=== PATIENT | female | born 1940 | race Caucasian/White ===

== ENCOUNTER 2020-03-15 08:22 | Outpatient (REF) | payer MEDICARE, SELFPAY ==
[2020-03-15 09:26] LABS: Basophils Percent Auto 0.6 % (0-2); Eosinophils Absolute Auto 0.3 X10*3/uL (0.0-0.4); Eosinophils Percent Auto 4.3 % (0-4); Hematocrit 47.1 % (37-47); Imm Gran Abs Auto 0.09 X10*3/uL (0.00-0.03); Imm Gran Pct Auto 1.3 % (0.0-0.4); Lymphocytes Absolute Auto 1.8 X10*3/uL (1.2-4.9); Lymphocytes Percent Auto 25.5 % (20-40); MANUAL DIFF FLAG SCAN; Mean Corpuscular HGB Conc 31.8 g/dl (31.0-35.0); Mean Corpuscular Hemoglobin 29.5 pg (27.0-33.0); Mean Corpuscular Volume 92.5 fL (80-98); Mean Platelet Volume 9.5 fL (9.4-12.3); Monocytes Absolute Auto 1.8 X10*3/uL (0.1-1.2); Monocytes Percent Auto 25.8 % (2-11); Neutrophils Absolute Auto 2.9 X10*3/uL (2.0-8.3); Neutrophils Percent Auto 42.5 % (45-73); Platelet Count 350 X10*3/uL (160-400); Red Blood Count 5.09 X10*6/uL (4.20-5.50); Red Cell Distribution Width 13.9 % (11.0-16.0); SCAN SMEAR FLAG 1; White Blood Count 6.9 X10*3/uL (4.8-10.8)
[2020-03-15 09:36] LABS: Alanine Aminotransferase 11 U/L (0-31); Albumin Level 3.8 g/dL (3.5-5.0); Alkaline Phosphatase 80 U/L (39-117); Aspartate Amino Transferase 20 U/L (5-31); Bilirubin Total 0.3 mg/dL (0.0-1.0); Blood Urea Nitrogen 14 mg/dL (9-16); Calcium 9.2 mg/dL (8.4-10.2); Estimated Glomerular Filt Rate > 60; Glucose Random 94 mg/dL (60-115)
[2020-03-15 09:48] LABS: Anion Gap 10 (12-20); Carbon Dioxide 29 mmol/L (22-29); Chloride 106 mmol/L (96-108); Sodium 141 mmol/L (135-145)
[2020-03-15 10:32] LABS: SLIDE REVIEW VERIFIED
[2020-03-16 08:06] LABS: CA-125 66 U/mL (<35)
== END 2020-03-15 08:23 | disposition home or self-care (01) ==
LOC: HO.LAB 08:22
PROVIDERS: PCP Internal Medicine Medical Oncology; Visit Provider Internal Medicine Medical Oncology
DX: C56.9 Malignant neoplasm of unspecified ovary (principal)
CPT/HCPCS: 36415; 80053; 85025; 86304

== ENCOUNTER 2020-04-12 07:58 | Outpatient (REF) | payer MEDICARE, SELFPAY ==
[2020-04-12 08:50] LABS: Basophils Absolute Auto 0.1 X10*3/uL (0.0-0.2); Basophils Percent Auto 1.1 % (0-2); Eosinophils Absolute Auto 0.2 X10*3/uL (0.0-0.4); Hematocrit 44.9 % (37-47); Hemoglobin 14.2 g/dl (12.0-16.0); Imm Gran Abs Auto 0.04 X10*3/uL (0.00-0.03); Imm Gran Pct Auto 0.6 % (0.0-0.4); Lymphocytes Absolute Auto 1.8 X10*3/uL (1.2-4.9); MANUAL DIFF FLAG SCAN; Mean Corpuscular HGB Conc 31.6 g/dl (31.0-35.0); Mean Corpuscular Hemoglobin 29.8 pg (27.0-33.0); Mean Corpuscular Volume 94.1 fL (80-98); Mean Platelet Volume 9.5 fL (9.4-12.3); Monocytes Absolute Auto 1.6 X10*3/uL (0.1-1.2); Monocytes Percent Auto 24.2 % (2-11); Neutrophils Absolute Auto 2.8 X10*3/uL (2.0-8.3); Neutrophils Percent Auto 43.1 % (45-73); Platelet Count 341 X10*3/uL (160-400); Red Blood Count 4.77 X10*6/uL (4.20-5.50); Red Cell Distribution Width 14.1 % (11.0-16.0); SCAN SMEAR FLAG 1; White Blood Count 6.6 X10*3/uL (4.8-10.8)
[2020-04-12 09:11] LABS: SLIDE REVIEW VERIFIED
[2020-04-12 09:14] LABS: Alanine Aminotransferase 10 U/L (0-31); Albumin Level 3.8 g/dL (3.5-5.0); Alkaline Phosphatase 69 U/L (39-117); Anion Gap 13 (12-20); Aspartate Amino Transferase 24 U/L (5-31); Bilirubin Total 0.5 mg/dL (0.0-1.0); Blood Urea Nitrogen 20 mg/dL (9-16); Calcium 8.7 mg/dL (8.4-10.2); Carbon Dioxide 25 mmol/L (22-29); Chloride 104 mmol/L (96-108); Estimated Glomerular Filt Rate > 60; Glucose Random 84 mg/dL (60-115); Sodium 138 mmol/L (135-145)
[2020-04-13 22:27] LABS: CA-125 93 U/mL (<35)
== END 2020-04-12 07:59 | disposition home or self-care (01) ==
LOC: HO.LAB 07:58
PROVIDERS: PCP Internal Medicine Medical Oncology; Visit Provider Internal Medicine Medical Oncology
DX: C56.9 Malignant neoplasm of unspecified ovary (principal)
CPT/HCPCS: 36415; 80053; 85025; 86304

== ENCOUNTER 2020-05-14 08:05 | Outpatient (REF) | payer MEDICARE, SELFPAY ==
[2020-05-14 08:47] LABS: MANUAL DIFF FLAG NO
[2020-05-14 08:52] LABS: Basophils Percent Auto 0.5 % (0-2); Eosinophils Absolute Auto 0.3 X10*3/uL (0.0-0.4); Eosinophils Percent Auto 5.1 % (0-4); Hematocrit 46.7 % (37-47); Hemoglobin 14.7 g/dl (12.0-16.0); Imm Gran Abs Auto 0.03 X10*3/uL (0.00-0.03); Imm Gran Pct Auto 0.5 % (0.0-0.4); Lymphocytes Absolute Auto 2.1 X10*3/uL (1.2-4.9); Lymphocytes Percent Auto 32.9 % (20-40); Mean Corpuscular HGB Conc 31.5 g/dl (31.0-35.0); Mean Corpuscular Hemoglobin 29.7 pg (27.0-33.0); Mean Corpuscular Volume 94.3 fL (80-98); Mean Platelet Volume 9.6 fL (9.4-12.3); Monocytes Absolute Auto 0.9 X10*3/uL (0.1-1.2); Monocytes Percent Auto 13.9 % (2-11); Neutrophils Percent Auto 47.1 % (45-73); Platelet Count 324 X10*3/uL (160-400); Red Blood Count 4.95 X10*6/uL (4.20-5.50); Red Cell Distribution Width 13.7 % (11.0-16.0); White Blood Count 6.3 X10*3/uL (4.8-10.8)
--- NOTE | 2020-05-14 14:06 | MM_ITS ---
EXAMINATION: MM DIAGNOSTIC DIGITAL BREAST TOMOSYNTHESIS, BILATERAL CLINICAL INFORMATION: Due for yearly. Anterior right breast calcifications for follow-up. Personal history ovarian cancer. The lifetime risk of breast cancer based on the Tyrer-Cuzick Model is 2%. COMPARISON: Mammography: 11/04/2019, 04/25/2019, 04/15/2019 (BI-RADS 0), 02/26/2018, 02/17/2017 TECHNIQUE: Digital breast tomosynthesis is performed in both the craniocaudal and mediolateral oblique views along with computer-aided detection (CAD). Synthesized 2D images are generated from the tomosynthesis. FINDINGS: There are scattered areas of fibroglandular density (ACR BI-RADS breast composition Category b). Parenchymal pattern is similar to prior exams. There is no developing density or interval mass or architectural abnormality. There is a tunneled port overlying the left axilla on the MLO view. No abnormal calcifications on the left. Right breast calcifications for follow-up anterior periareolar upper outer breast appears slightly coarser and benign appearing. There are a few calcifications also noted mid 12:00 position which are slightly coarser as well. Right breast will be reassessed again to include magnification views at next bilateral annual mammography, due in one year. Preliminary results are provided to the patient at time of visit by the technologist. MM/MM tomosynthesis diagnostic BI IMPRESSION: No significant changes from prior studies. Probable benign calcifications right breast without significant change. ASSESSMENT: BI-RADS 3: Probably Benign RECOMMENDATION: Diagnostic mammography at time of next annual exam, due in 12 months. This patient's information was entered into a reminder system with a target due date for their next mammogram.
[2020-05-15 09:48] LABS: CA-125 70 U/mL (<35)
== END 2020-05-14 08:06 | disposition home or self-care (01) ==
LOC: HO.MAMMO 08:05
PROVIDERS: Visit Provider Internal Medicine Medical Oncology
DX: R92.1 Mammographic calcification found on diagnostic imaging of breast (principal); C56.9 Malignant neoplasm of unspecified ovary
CPT/HCPCS: 36415; 77062; 77066; 85025; 86304

== ENCOUNTER 2020-06-13 07:57 | Outpatient (REF) | payer MEDICARE, SELFPAY ==
[2020-06-13 08:32] LABS: MANUAL DIFF FLAG NO
[2020-06-13 08:37] LABS: Basophils Absolute Auto 0.1 X10*3/uL (0.0-0.2); Basophils Percent Auto 0.8 % (0-2); Eosinophils Absolute Auto 0.4 X10*3/uL (0.0-0.4); Eosinophils Percent Auto 5.9 % (0-4); Hematocrit 46.1 % (37-47); Hemoglobin 14.4 g/dl (12.0-16.0); Imm Gran Abs Auto 0.07 X10*3/uL (0.00-0.03); Lymphocytes Absolute Auto 2.4 X10*3/uL (1.2-4.9); Lymphocytes Percent Auto 33.8 % (20-40); Mean Corpuscular HGB Conc 31.2 g/dl (31.0-35.0); Mean Corpuscular Hemoglobin 29.7 pg (27.0-33.0); Mean Corpuscular Volume 95.1 fL (80-98); Mean Platelet Volume 9.6 fL (9.4-12.3); Monocytes Absolute Auto 1.3 X10*3/uL (0.1-1.2); Monocytes Percent Auto 17.6 % (2-11); Neutrophils Absolute Auto 2.9 X10*3/uL (2.0-8.3); Neutrophils Percent Auto 40.9 % (45-73); Platelet Count 364 X10*3/uL (160-400); Red Blood Count 4.85 X10*6/uL (4.20-5.50); Red Cell Distribution Width 13.8 % (11.0-16.0); White Blood Count 7.1 X10*3/uL (4.8-10.8)
[2020-06-14 12:52] LABS: CA-125 56 U/mL (<35)
== END 2020-06-13 07:58 | disposition home or self-care (01) ==
LOC: HO.LAB 07:57
PROVIDERS: Visit Provider Internal Medicine Medical Oncology
DX: C56.9 Malignant neoplasm of unspecified ovary (principal)
CPT/HCPCS: 36415; 85025; 86304

== ENCOUNTER 2020-06-14 10:51 | Outpatient (REF) | payer MEDICARE, SELFPAY ==
[2020-06-14 13:25] LABS: Alanine Aminotransferase 12 U/L (0-31); Albumin Level 4.3 g/dL (3.5-5.0); Alkaline Phosphatase 76 U/L (39-117); Anion Gap 15 (12-20); Aspartate Amino Transferase 22 U/L (5-31); Bilirubin Total 0.3 mg/dL (0.0-1.0); Blood Urea Nitrogen 19 mg/dL (9-16); Calcium 9.7 mg/dL (8.4-10.2); Carbon Dioxide 27 mmol/L (22-29); Chloride 104 mmol/L (96-108); Estimated Glomerular Filt Rate 51; Glucose Random 99 mg/dL (60-115); Potassium 4.2 mmol/l (3.3-5.1); Sodium 142 mmol/L (135-145); Total Protein 6.6 g/dL (6.5-8.0)
== END 2020-06-14 10:52 | disposition home or self-care (01) ==
LOC: HO.LAB 10:51
PROVIDERS: PCP Internal Medicine Medical Oncology; Visit Provider Internal Medicine Medical Oncology
DX: C56.9 Malignant neoplasm of unspecified ovary (principal)
CPT/HCPCS: 80053

== ENCOUNTER 2020-07-11 07:59 | Outpatient (REF) | payer MEDICARE, SELFPAY ==
[2020-07-11 08:36] LABS: MANUAL DIFF FLAG NO
[2020-07-11 08:41] LABS: Basophils Percent Auto 0.4 % (0-2); Eosinophils Absolute Auto 0.3 X10*3/uL (0.0-0.4); Eosinophils Percent Auto 4.5 % (0-4); Hematocrit 44.8 % (37-47); Hemoglobin 14.2 g/dl (12.0-16.0); Imm Gran Abs Auto 0.03 X10*3/uL (0.00-0.03); Imm Gran Pct Auto 0.4 % (0.0-0.4); Lymphocytes Absolute Auto 2.2 X10*3/uL (1.2-4.9); Lymphocytes Percent Auto 31.5 % (20-40); Mean Corpuscular HGB Conc 31.7 g/dl (31.0-35.0); Mean Corpuscular Hemoglobin 30.2 pg (27.0-33.0); Mean Corpuscular Volume 95.3 fL (80-98); Mean Platelet Volume 9.5 fL (9.4-12.3); Monocytes Absolute Auto 1.1 X10*3/uL (0.1-1.2); Monocytes Percent Auto 15.9 % (2-11); Neutrophils Absolute Auto 3.3 X10*3/uL (2.0-8.3); Neutrophils Percent Auto 47.3 % (45-73); Platelet Count 376 X10*3/uL (160-400); White Blood Count 6.9 X10*3/uL (4.8-10.8)
[2020-07-11 09:13] LABS: Alanine Aminotransferase 10 U/L (0-31); Albumin Level 4.1 g/dL (3.5-5.0); Alkaline Phosphatase 71 U/L (39-117); Anion Gap 13 (12-20); Aspartate Amino Transferase 22 U/L (5-31); Bilirubin Total 0.6 mg/dL (0.0-1.0); Blood Urea Nitrogen 21 mg/dL (9-16); Calcium 9.5 mg/dL (8.4-10.2); Carbon Dioxide 27 mmol/L (22-29); Chloride 104 mmol/L (96-108); Estimated Glomerular Filt Rate 58; Glucose Random 119 mg/dL (60-115); Sodium 140 mmol/L (135-145); Total Protein 6.2 g/dL (6.5-8.0)
[2020-07-12 06:07] LABS: CA-125 35 U/mL (<35)
== END 2020-07-11 08:00 | disposition home or self-care (01) ==
LOC: HO.LAB 07:59
PROVIDERS: PCP Internal Medicine Medical Oncology; Visit Provider Internal Medicine Medical Oncology
DX: C56.9 Malignant neoplasm of unspecified ovary (principal)
CPT/HCPCS: 36415; 80053; 85025; 86304

== ENCOUNTER 2020-08-14 08:05 | Outpatient (REF) | payer MEDICARE, SELFPAY ==
--- NOTE | ~2020-08-14 | XR_ITS ---
EXAMINATION: XR CHEST CLINICAL INFORMATION: Ovarian cancer COMPARISON: Previous chest x-rays most recent February 2019 TECHNIQUE: 2 views of the chest were obtained. FINDINGS: The cardiac silhouette does not appear enlarged. The thoracic aorta is tortuous. Hilar and mediastinal contours are otherwise unremarkable. There is a left jugular port with tip projecting over the SVC. There is mild biapical pleural thickening. The lungs are otherwise clear. There is no pleural effusion or pneumothorax are there are degenerative changes of the spine. XR/XR chest 2V IMPRESSION: No evidence for acute disease in the chest.
[2020-08-14 08:48] LABS: MANUAL DIFF FLAG NO
[2020-08-14 08:50] LABS: Basophils Absolute Auto 0.1 X10*3/uL (0.0-0.2); Basophils Percent Auto 0.8 % (0-2); Eosinophils Absolute Auto 0.4 X10*3/uL (0.0-0.4); Eosinophils Percent Auto 4.7 % (0-4); Hematocrit 44.8 % (37-47); Hemoglobin 14.1 g/dl (12.0-16.0); Imm Gran Abs Auto 0.02 X10*3/uL (0.00-0.03); Imm Gran Pct Auto 0.3 % (0.0-0.4); Lymphocytes Absolute Auto 1.9 X10*3/uL (1.2-4.9); Lymphocytes Percent Auto 25.6 % (20-40); Mean Corpuscular HGB Conc 31.5 g/dl (31.0-35.0); Mean Corpuscular Hemoglobin 29.7 pg (27.0-33.0); Mean Corpuscular Volume 94.5 fL (80-98); Monocytes Absolute Auto 1.2 X10*3/uL (0.1-1.2); Monocytes Percent Auto 16.5 % (2-11); Neutrophils Absolute Auto 3.9 X10*3/uL (2.0-8.3); Neutrophils Percent Auto 52.1 % (45-73); Platelet Count 357 X10*3/uL (160-400); Red Blood Count 4.74 X10*6/uL (4.20-5.50); Red Cell Distribution Width 13.9 % (11.0-16.0); White Blood Count 7.4 X10*3/uL (4.8-10.8)
[2020-08-14 09:17] LABS: Alanine Aminotransferase 10 U/L (0-31); Alkaline Phosphatase 68 U/L (39-117); Anion Gap 12 (12-20); Aspartate Amino Transferase 20 U/L (5-31); Bilirubin Total 0.5 mg/dL (0.0-1.0); Blood Urea Nitrogen 18 mg/dL (9-16); Calcium 8.8 mg/dL (8.4-10.2); Carbon Dioxide 26 mmol/L (22-29); Chloride 106 mmol/L (96-108); Estimated Glomerular Filt Rate 56; Glucose Random 109 mg/dL (60-115); Potassium 3.7 mmol/L (3.3-5.1); Sodium 140 mmol/L (135-145); Total Protein 6.1 g/dL (6.5-8.0)
[2020-08-15 05:26] LABS: CA-125 40 U/mL (<35)
== END 2020-08-14 08:06 | disposition home or self-care (01) ==
LOC: HO.LAB 08:05
PROVIDERS: PCP Internal Medicine Medical Oncology; Visit Provider Internal Medicine Medical Oncology
DX: Z13.89 Encounter for screening for other disorder (principal)
CPT/HCPCS: 36415; 71046; 80053; 85025; 86304

== ENCOUNTER 2020-08-14 08:45 | Outpatient (REF) | payer MEDICARE, SELFPAY | END 2020-08-14 08:46 | disposition home or self-care (01) | LOC: HO.LAB 08:45 | PROVIDERS: Visit Provider Internal Medicine | DX: Z20.822 Contact with and (suspected) exposure to COVID-19 (principal) | CPT/HCPCS: 36415; 71046; 80053; 85025; 86304; C9803; U0003; U0005 ==

== ENCOUNTER 2020-08-16 07:57 | Outpatient (REF) | payer MEDICARE, SELFPAY ==
--- NOTE | ~2020-08-16 | CT_ITS ---
EXAMINATION: CT ABDOMEN AND PELVIS WITH CONTRAST CLINICAL INFORMATION: Ovarian cancer. COMPARISON: CT abdomen and pelvis with contrast 07/04/2019 and 01/21/2020 TECHNIQUE: Multidetector volumetric images were obtained from the superior aspect of the liver through the pubic symphysis following administration 85 mL of Omnipaque 350 intravenous contrast. Sagittal and coronal reformatted images were obtained on the technologist's workstation. Oral contrast: No. This CT examination was performed using dose optimization techniques as appropriate, variously including the following: *Automated exposure control *Adjustment of mA and/or kV according to patient size (this includes techniques or standardized protocols for targeted exams where dose is matched to indication/reason for exam; i.e. extremities or head) *Use of iterative reconstruction technique DLP: 431 mGy-cm FINDINGS: LUNG BASES: The heart size is normal. The lung bases are clear. LIVER, GALLBLADDER, AND BILIARY TREE: The liver is normal in size, shape, and attenuation. There is a complex cystic lesion in the central right hepatic lobe measuring 1.8 x 2.0 cm. Previously, it measured 3.1 x 2.3 cm on 07/04/2019 and 2.3 x 2.1 cm on 01/21/2020. It is smaller. No additional lesions seen. There is no intrahepatic ductal dilatation. The gallbladder is unremarkable with no evidence of radiopaque gallstones, gallbladder wall thickening, or obvious pericholecystic inflammatory changes. PANCREAS: Unremarkable. SPLEEN: There is a bilobed 4.9 cm cyst, similar to previous study. No splenic enlargement. ADRENAL GLANDS: Unremarkable. KIDNEYS AND URETERS: The kidneys are normal in size, shape, and attenuation. No hydronephrosis, hydroureter, or calculi seen. No perinephric stranding. BLADDER: Unremarkable. GASTROINTESTINAL TRACT: Oral contrast opacified small bowel loops are unremarkable. There is scattered stool and diverticula seen in colon without distention. Appendix is not seen with certainty. The stomach is nondistended and appears unremarkable. There is no free fluid. No free air seen. ABDOMINAL WALL: No significant hernia is appreciated. LYMPH NODES: There are low attenuation lesions in the periportal region on upper abdominal retroperitoneum. There is a 2.1 x 1.1 cm retropancreatic/aortocaval lymph node on axial image 20/, stable. Small para-aortic retroperitoneal lymph nodes are also stable. No abnormal mesenteric lymph nodes seen. Small external iliac 1.6 x 1.4 cm lymph node axial image 56/3 appears stable. Small anterior pericardial lymph nodes are visualized as well which are stable. VASCULAR: Mild atherosclerotic calcification of abdominal aorta with anterior thrombus in the lower to mid abdomen is stable. No aneurysmal dilatation seen. PELVIC VISCERA: There is heterogeneous right pelvic mass measuring 4.9 x 3.9 cm. Previously, it measured 5.5 x 4.3 cm. It appears smaller on the present exam. No additional pelvic mass seen. There is no free fluid. There are multiple small phleboliths in the pelvis. The uterus is not visualized likely atrophic or surgically absent. The cervix appears unremarkable. OSSEOUS STRUCTURES: No lytic or sclerotic process seen. CT/CT abdomen pelvis w con IMPRESSION: Stable right pelvic mass with no major change. Retroperitoneal, periportal and pericardiac lymph nodes are stable. Right central hepatic lobe mass appears slightly smaller. Bilobed splenic cysts shows minimal increase
[2020-08-16] MEDS: iohexoL 350 MG/ML 100 ML INFUS..BTL IV (11:01)
[2020-08-16] MEDS: Barium Sulfate Oral (Mocha) 450 ML ORAL.SUSP 900 ML PO (11:02)
== END 2020-08-16 07:58 | disposition home or self-care (01) ==
LOC: HO.CT 07:57
PROVIDERS: PCP Internal Medicine Medical Oncology; Visit Provider Internal Medicine Medical Oncology
DX: C56.9 Malignant neoplasm of unspecified ovary (principal)
CPT/HCPCS: 74177; Q9967

== ENCOUNTER 2020-08-22 12:06 | Outpatient (REF) | payer MEDICARE, SELFPAY ==
[2020-08-22 12:52] LABS: Glucose Urine UA NEG (NEG); Leukocyte Esterase Urine NEG (NEG); Nitrite Urine NEG (NEG); PH 6.5 (5.0-8.0); Specific Gravity - Urine <= 1.005 (1.005-1.025); Urine Blood NEG (NEG); Urine Ketones NEG (NEG); Urine Protein NEG (NEG-TRACE)
[2020-08-22 12:56] LABS: Appearance Urine CLEAR; Color Urine YELLOW
[2020-08-22 13:06] LABS: Squamous Epithelial Cell Urine 2+ /LPF; WBC Urine 0 /HPF (0-4)
== END 2020-08-22 12:07 | disposition home or self-care (01) ==
LOC: HO.LNP 12:06
PROVIDERS: Visit Provider Internal Medicine Medical Oncology
DX: N30.90 Cystitis, unspecified without hematuria (principal)
CPT/HCPCS: 81001

== ENCOUNTER 2020-09-05 09:56 | Outpatient (REF) | payer MEDICARE, SELFPAY | END 2020-09-05 09:57 | disposition home or self-care (01) | LOC: HO.LAB 09:56 | PROVIDERS: Visit Provider Internal Medicine | DX: Z20.822 Contact with and (suspected) exposure to COVID-19 (principal) | CPT/HCPCS: 36415; C9803; U0003; U0005 ==

== ENCOUNTER 2020-09-21 07:59 | Outpatient (REF) | payer MEDICARE, SELFPAY ==
[2020-09-21 08:57] LABS: MANUAL DIFF FLAG NO
[2020-09-21 09:06] LABS: Basophils Absolute Auto 0.1 X10*3/uL (0.0-0.2); Basophils Percent Auto 0.8 % (0-2); Eosinophils Absolute Auto 0.1 X10*3/uL (0.0-0.4); Eosinophils Percent Auto 0.9 % (0-4); Hematocrit 47.5 % (37-47); Hemoglobin 14.9 g/dl (12.0-16.0); Imm Gran Abs Auto 0.04 X10*3/uL (0.00-0.03); Imm Gran Pct Auto 0.6 % (0.0-0.4); Lymphocytes Percent Auto 30.7 % (20-40); Mean Corpuscular HGB Conc 31.4 g/dl (31.0-35.0); Mean Corpuscular Hemoglobin 30.2 pg (27.0-33.0); Mean Corpuscular Volume 96.2 fL (80-98); Mean Platelet Volume 9.6 fL (9.4-12.3); Monocytes Absolute Auto 1.3 X10*3/uL (0.1-1.2); Monocytes Percent Auto 19.4 % (2-11); Neutrophils Absolute Auto 3.1 X10*3/uL (2.0-8.3); Neutrophils Percent Auto 47.6 % (45-73); Platelet Count 368 X10*3/uL (160-400); Red Blood Count 4.94 X10*6/uL (4.20-5.50); Red Cell Distribution Width 13.5 % (11.0-16.0); White Blood Count 6.5 X10*3/uL (4.8-10.8)
[2020-09-22 05:51] LABS: CA-125 36 U/mL (<35)
== END 2020-09-21 08:00 | disposition home or self-care (01) ==
LOC: HO.LAB 07:59
PROVIDERS: PCP Internal Medicine Medical Oncology; Visit Provider Internal Medicine Medical Oncology
DX: C56.9 Malignant neoplasm of unspecified ovary (principal)
CPT/HCPCS: 36415; 85025; 86304

== ENCOUNTER 2020-10-15 07:58 | Outpatient (REF) | payer MEDICARE, SELFPAY ==
[2020-10-15 08:56] LABS: Basophils Absolute Auto 0.1 X10*3/uL (0.0-0.2); Basophils Percent Auto 0.9 % (0-2); Eosinophils Absolute Auto 0.4 X10*3/uL (0.0-0.4); Eosinophils Percent Auto 6.5 % (0-4); Hematocrit 44.8 % (37-47); Hemoglobin 14.1 g/dl (12.0-16.0); Imm Gran Abs Auto 0.05 X10*3/uL (0.00-0.03); Imm Gran Pct Auto 0.9 % (0.0-0.4); Lymphocytes Absolute Auto 1.9 X10*3/uL (1.2-4.9); Lymphocytes Percent Auto 35.9 % (20-40); MANUAL DIFF FLAG SCAN; Mean Corpuscular HGB Conc 31.5 g/dl (31.0-35.0); Mean Corpuscular Hemoglobin 29.9 pg (27.0-33.0); Mean Corpuscular Volume 94.9 fL (80-98); Mean Platelet Volume 9.4 fL (9.4-12.3); Monocytes Absolute Auto 1.3 X10*3/uL (0.1-1.2); Neutrophils Absolute Auto 1.7 X10*3/uL (2.0-8.3); Neutrophils Percent Auto 31.8 % (45-73); Platelet Count 384 X10*3/uL (160-400); Red Blood Count 4.72 X10*6/uL (4.20-5.50); Red Cell Distribution Width 13.2 % (11.0-16.0); SCAN SMEAR FLAG 1; White Blood Count 5.4 X10*3/uL (4.8-10.8)
[2020-10-15 09:20] LABS: SLIDE REVIEW VERIFIED
[2020-10-15 09:59] LABS: Alanine Aminotransferase 11 U/L (0-31); Alkaline Phosphatase 69 U/L (39-117); Anion Gap 12 (12-20); Aspartate Amino Transferase 20 U/L (5-31); Bilirubin Total 0.3 mg/dL (0.0-1.0); Blood Urea Nitrogen 18 mg/dL (9-16); Calcium 9.7 mg/dL (8.4-10.2); Carbon Dioxide 28 mmol/L (22-29); Chloride 105 mmol/L (96-108); Estimated Glomerular Filt Rate > 60; Glucose Random 94 mg/dL (60-115); Sodium 141 mmol/L (135-145)
[2020-10-16 10:52] LABS: CA-125 42 U/mL (<35)
== END 2020-10-15 07:59 | disposition home or self-care (01) ==
LOC: HO.LAB 07:58
PROVIDERS: PCP Internal Medicine Medical Oncology; Visit Provider Internal Medicine Medical Oncology
DX: C56.9 Malignant neoplasm of unspecified ovary (principal)
CPT/HCPCS: 36415; 80053; 85025; 86304

== ENCOUNTER 2020-11-13 09:03 | Outpatient (REF) | payer MEDICARE, SELFPAY ==
[2020-11-13 10:12] LABS: MANUAL DIFF FLAG NO
[2020-11-13 10:17] LABS: Basophils Percent Auto 0.7 % (0-2); Eosinophils Absolute Auto 0.2 X10*3/uL (0.0-0.4); Eosinophils Percent Auto 4.1 % (0-4); Hematocrit 48.5 % (37-47); Hemoglobin 15.2 g/dl (12.0-16.0); Imm Gran Abs Auto 0.05 X10*3/uL (0.00-0.03); Imm Gran Pct Auto 0.9 % (0.0-0.4); Lymphocytes Absolute Auto 1.9 X10*3/uL (1.2-4.9); Lymphocytes Percent Auto 33.2 % (20-40); Mean Corpuscular HGB Conc 31.3 g/dl (31.0-35.0); Mean Corpuscular Volume 95.7 fL (80-98); Mean Platelet Volume 9.4 fL (9.4-12.3); Monocytes Absolute Auto 0.8 X10*3/uL (0.1-1.2); Monocytes Percent Auto 12.9 % (2-11); Neutrophils Absolute Auto 2.8 X10*3/uL (2.0-8.3); Neutrophils Percent Auto 48.2 % (45-73); Platelet Count 432 X10*3/uL (160-400); Red Blood Count 5.07 X10*6/uL (4.20-5.50); Red Cell Distribution Width 13.9 % (11.0-16.0); White Blood Count 5.8 X10*3/uL (4.8-10.8)
[2020-11-13 10:48] LABS: Alanine Aminotransferase 10 U/L (0-31); Albumin Level 4.1 g/dL (3.5-5.0); Alkaline Phosphatase 70 U/L (39-117); Anion Gap 12 (12-20); Aspartate Amino Transferase 20 U/L (5-31); Bilirubin Total 0.3 mg/dL (0.0-1.0); Blood Urea Nitrogen 22 mg/dL (9-16); Calcium 9.7 mg/dL (8.4-10.2); Carbon Dioxide 28 mmol/L (22-29); Chloride 105 mmol/L (96-108); Estimated Glomerular Filt Rate 59; Glucose Random 127 mg/dL (60-115); Potassium 4.1 mmol/L (3.3-5.1); Sodium 141 mmol/L (135-145); Total Protein 6.4 g/dL (6.5-8.0)
[2020-11-14 09:37] LABS: CA-125 50 U/mL (<35)
== END 2020-11-13 09:04 | disposition home or self-care (01) ==
LOC: HO.LAB 09:03
PROVIDERS: PCP Internal Medicine Medical Oncology; Visit Provider Internal Medicine Medical Oncology
DX: C56.9 Malignant neoplasm of unspecified ovary (principal)
CPT/HCPCS: 36415; 80053; 85025; 86304

== ENCOUNTER 2020-12-11 07:56 | Outpatient (REF) | payer MEDICARE, SELFPAY ==
[2020-12-11 08:44] LABS: MANUAL DIFF FLAG NO
[2020-12-11 08:47] LABS: Basophils Absolute Auto 0.1 X10*3/uL (0.0-0.2); Basophils Percent Auto 0.8 % (0-2); Eosinophils Absolute Auto 0.2 X10*3/uL (0.0-0.4); Eosinophils Percent Auto 2.5 % (0-4); Hematocrit 47.5 % (37-47); Imm Gran Abs Auto 0.05 X10*3/uL (0.00-0.03); Imm Gran Pct Auto 0.8 % (0.0-0.4); Lymphocytes Absolute Auto 1.9 X10*3/uL (1.2-4.9); Lymphocytes Percent Auto 31.4 % (20-40); Mean Corpuscular HGB Conc 31.6 g/dl (31.0-35.0); Mean Corpuscular Hemoglobin 30.1 pg (27.0-33.0); Mean Corpuscular Volume 95.4 fL (80-98); Mean Platelet Volume 9.1 fL (9.4-12.3); Monocytes Absolute Auto 0.9 X10*3/uL (0.1-1.2); Monocytes Percent Auto 14.5 % (2-11); Platelet Count 401 X10*3/uL (160-400); Red Blood Count 4.98 X10*6/uL (4.20-5.50); Red Cell Distribution Width 13.9 % (11.0-16.0)
[2020-12-11 09:23] LABS: Alanine Aminotransferase 6 U/L (0-31); Albumin Level 4.1 g/dL (3.5-5.0); Alkaline Phosphatase 74 U/L (39-117); Anion Gap 13 (12-20); Aspartate Amino Transferase 19 U/L (5-31); Bilirubin Total 0.2 mg/dL (0.0-1.0); Blood Urea Nitrogen 13 mg/dL (9-16); Calcium 9.2 mg/dL (8.4-10.2); Carbon Dioxide 26 mmol/L (22-29); Chloride 105 mmol/L (96-108); Estimated Glomerular Filt Rate 58; Glucose Random 149 mg/dL (60-115); Sodium 140 mmol/L (135-145); Total Protein 6.4 g/dL (6.5-8.0)
[2020-12-12 10:01] LABS: CA-125 43 U/mL (<35)
== END 2020-12-11 07:57 | disposition home or self-care (01) ==
LOC: HO.LAB 07:56
PROVIDERS: PCP Internal Medicine Medical Oncology; Visit Provider Internal Medicine Medical Oncology
DX: C56.9 Malignant neoplasm of unspecified ovary (principal)
CPT/HCPCS: 36415; 80053; 85025; 86304

== ENCOUNTER 2021-01-09 07:58 | Outpatient (REF) | payer MEDICARE, SELFPAY ==
[2021-01-09 08:49] LABS: Basophils Percent Auto 0.6 % (0-2); Eosinophils Percent Auto 0.6 % (0-4); Hematocrit 43.7 % (37-47); Hemoglobin 13.8 g/dl (12.0-16.0); Imm Gran Abs Auto 0.03 X10*3/uL (0.00-0.03); Imm Gran Pct Auto 0.4 % (0.0-0.4); Lymphocytes Absolute Auto 1.9 X10*3/uL (1.2-4.9); Lymphocytes Percent Auto 22.3 % (20-40); Mean Corpuscular HGB Conc 31.6 g/dl (31.0-35.0); Monocytes Absolute Auto 1.9 X10*3/uL (0.1-1.2); Neutrophils Absolute Auto 4.6 X10*3/uL (2.0-8.3); Neutrophils Percent Auto 54.1 % (45-73); Platelet Count 492 X10*3/uL (160-400); Red Cell Distribution Width 14.1 % (11.0-16.0); White Blood Count 8.5 X10*3/uL (4.8-10.8)
[2021-01-09 08:50] LABS: Basophils Absolute Auto 0.1 X10*3/uL (0.0-0.2); Eosinophils Absolute Auto 0.1 X10*3/uL (0.0-0.4); MANUAL DIFF FLAG SCAN; SCAN SMEAR FLAG 1
[2021-01-09 09:12] LABS: Alanine Aminotransferase 9 U/L (0-31); Alkaline Phosphatase 59 U/L (39-117); Anion Gap 12 (12-20); Aspartate Amino Transferase 21 U/L (5-31); Bilirubin Total 0.3 mg/dL (0.0-1.0); Blood Urea Nitrogen 13 mg/dL (9-16); Calcium 9.4 mg/dL (8.4-10.2); Carbon Dioxide 26 mmol/L (22-29); Chloride 106 mmol/L (96-108); Estimated Glomerular Filt Rate 59; Glucose Random 115 mg/dL (60-115); Potassium 3.7 mmol/L (3.3-5.1); SLIDE REVIEW VERIFIED; Sodium 140 mmol/L (135-145)
[2021-01-10 21:17] LABS: CA-125 54 U/mL (<35)
== END 2021-01-09 07:59 | disposition home or self-care (01) ==
LOC: HO.LAB 07:58
PROVIDERS: PCP Internal Medicine Medical Oncology; Visit Provider Internal Medicine Medical Oncology
DX: C56.9 Malignant neoplasm of unspecified ovary (principal)
CPT/HCPCS: 36415; 80053; 85025; 86304

== ENCOUNTER 2021-02-15 07:57 | Outpatient (REF) | payer MEDICARE, SELFPAY ==
[2021-02-15 08:17] LABS: MANUAL DIFF FLAG NO
[2021-02-15 08:24] LABS: Basophils Absolute Auto 0.1 X10*3/uL (0.0-0.2); Basophils Percent Auto 0.6 % (0-2); Eosinophils Absolute Auto 0.5 X10*3/uL (0.0-0.4); Eosinophils Percent Auto 5.5 % (0-4); Hematocrit 47.9 % (37-47); Hemoglobin 15.1 g/dl (12.0-16.0); Imm Gran Abs Auto 0.03 X10*3/uL (0.00-0.03); Imm Gran Pct Auto 0.3 % (0.0-0.4); Lymphocytes Absolute Auto 1.8 X10*3/uL (1.2-4.9); Lymphocytes Percent Auto 19.6 % (20-40); Mean Corpuscular HGB Conc 31.5 g/dl (31.0-35.0); Mean Corpuscular Hemoglobin 29.9 pg (27.0-33.0); Mean Corpuscular Volume 94.9 fL (80-98); Mean Platelet Volume 9.5 fL (9.4-12.3); Monocytes Absolute Auto 1.1 X10*3/uL (0.1-1.2); Monocytes Percent Auto 11.9 % (2-11); Neutrophils Absolute Auto 5.7 X10*3/uL (2.0-8.3); Neutrophils Percent Auto 62.1 % (45-73); Platelet Count 318 X10*3/uL (160-400); Red Blood Count 5.05 X10*6/uL (4.20-5.50); Red Cell Distribution Width 13.5 % (11.0-16.0); White Blood Count 9.1 X10*3/uL (4.8-10.8)
[2021-02-15 08:42] LABS: Alanine Aminotransferase 11 U/L (0-31); Alkaline Phosphatase 77 U/L (39-117); Anion Gap 11 (12-20); Aspartate Amino Transferase 19 U/L (5-31); Bilirubin Total 0.4 mg/dL (0.0-1.0); Blood Urea Nitrogen 12 mg/dL (9-16); Calcium 9.5 mg/dL (8.4-10.2); Carbon Dioxide 26 mmol/L (22-29); Chloride 106 mmol/L (96-108); Estimated Glomerular Filt Rate > 60; Glucose Random 121 mg/dL (60-115); Potassium 3.8 mmol/L (3.3-5.1); Sodium 139 mmol/L (135-145); Total Protein 6.5 g/dL (6.5-8.0)
[2021-02-20 20:21] LABS: CA-125 50 U/mL (<35)
== END 2021-02-15 07:58 | disposition home or self-care (01) ==
LOC: HO.LAB 07:57
PROVIDERS: PCP Internal Medicine Medical Oncology; Visit Provider Internal Medicine Medical Oncology
DX: C56.9 Malignant neoplasm of unspecified ovary (principal)
CPT/HCPCS: 36415; 80053; 85025; 86304

== ENCOUNTER 2021-02-20 07:57 | Outpatient (REF) | payer MEDICARE, SELFPAY ==
--- NOTE | ~2021-02-20 | CT_ITS ---
EXAMINATION: CT ABDOMEN AND PELVIS WITH CONTRAST CLINICAL INFORMATION: Ovarian cancer. COMPARISON: None TECHNIQUE: Multidetector volumetric images were obtained from the superior aspect of the liver through the pubic symphysis following administration 85 mL of Omnipaque 350 intravenous contrast. Sagittal and coronal reformatted images were obtained on the technologist's workstation. Oral contrast: No This CT examination was performed using dose optimization techniques as appropriate, variously including the following: *Automated exposure control *Adjustment of mA and/or kV according to patient size (this includes techniques or standardized protocols for targeted exams where dose is matched to indication/reason for exam; i.e. extremities or head) *Use of iterative reconstruction technique DLP: 335 mGy-cm FINDINGS: LUNG BASES: The lung bases are clear. The heart size is normal. LIVER, GALLBLADDER, AND BILIARY TREE: The liver is normal in size, shape, and attenuation. There is a 2.0 x 2.2 cm round hypodense lesion measuring 58 Hounsfield units on axial image 14/3. No additional lesion seen. No intrahepatic ductal dilatation. The gallbladder is unremarkable with no evidence of radiopaque gallstones, gallbladder wall thickening, or obvious pericholecystic inflammatory changes. PANCREAS: Unremarkable. SPLEEN: There is a bilobed low-density lesion measuring 4.8 x 2.3 cm and approximately 26 Hounsfield units likely a complex cyst, less likely hemangioma. Previously it measured 4.9 cm. ADRENAL GLANDS: Unremarkable. KIDNEYS AND URETERS: The kidneys are normal in size, shape and attenuation. No hydronephrosis, hydroureter or calculi seen. BLADDER: The bladder is decompressed and appears unremarkable. GASTROINTESTINAL TRACT: There is scattered stool and gas seen throughout colon without distention. The small bowel loops opacified oral contrast appear unremarkable. ABDOMINAL WALL: No significant hernia is appreciated. LYMPH NODES: There is a right inguinal hypodense lymph node measuring 27 Hounsfield units and approximately 1.6 cm in maximum dimension. There is a 1.4 x 1.3 cm left external iliac lymph node. No additional abnormal-sized retroperitoneal or internal iliac lymph node seen. There is a small felicia hepatis 1 cm lymph node on axial image 13/3 and 2.0 cm low-density lymph node anterior to the aortocaval region, stable. VASCULAR: The abdominal aorta measures 2.0 x 2.3 cm in the mid segment. There is calcification seen throughout the aorta consistent with atherosclerotic changes. PELVIC VISCERA: There is a complex mass in the right adnexa measuring 5.0 x 4.0 x 4.6 cm likely ovarian in origin. There are peripheral calcifications within this lesion. The attenuation value of 60 degrees suggests internal enhancement. The uterus is not visualized likely atrophied or surgically removed. OSSEOUS STRUCTURES: Unremarkable. CT/CT abdomen pelvis w con IMPRESSION: Solid right adnexal mass likely ovarian in origin, suspicious of primary ovarian lesion. Abnormal hypodense external iliac lymph nodes as described above. No retroperitoneal lymph node seen. Abnormal lymph nodes in the periportal region and retroperitoneum, stable compared to previous study. Bilobed splenic lesion is stable as well. Stable right hepatic lesion. Moderate constipation. Bilobed splenic cyst and likely right hepatic cyst close to the felicia hepatis. Differential diagnoses may include hemangioma. It is stable in size.
[2021-02-20] MEDS: iohexoL 350 MG/ML 100 ML INFUS..BTL IV (10:27)
== END 2021-02-20 07:58 | disposition home or self-care (01) ==
LOC: HO.CT 07:57
PROVIDERS: Visit Provider Internal Medicine Medical Oncology
DX: C56.9 Malignant neoplasm of unspecified ovary (principal)
CPT/HCPCS: 74177; Q9967

== ENCOUNTER 2021-03-22 08:09 | Outpatient (REF) | payer MEDICARE, SELFPAY ==
[2021-03-22 08:53] LABS: Basophils Absolute Auto 0.1 X10*3/uL (0.0-0.2); Basophils Percent Auto 0.6 % (0-2); Eosinophils Absolute Auto 0.3 X10*3/uL (0.0-0.4); Eosinophils Percent Auto 3.6 % (0-4); Hematocrit 47.9 % (37-47); Hemoglobin 15.3 g/dl (12.0-16.0); Imm Gran Abs Auto 0.04 X10*3/uL (0.00-0.03); Imm Gran Pct Auto 0.5 % (0.0-0.4); Lymphocytes Percent Auto 23.5 % (20-40); MANUAL DIFF FLAG SCAN; Mean Corpuscular HGB Conc 31.9 g/dl (31.0-35.0); Mean Corpuscular Hemoglobin 29.7 pg (27.0-33.0); Mean Corpuscular Volume 92.8 fL (80-98); Mean Platelet Volume 9.3 fL (9.4-12.3); Monocytes Absolute Auto 1.5 X10*3/uL (0.1-1.2); Monocytes Percent Auto 18.1 % (2-11); Neutrophils Absolute Auto 4.5 X10*3/uL (2.0-8.3); Neutrophils Percent Auto 53.7 % (45-73); Platelet Count 367 X10*3/uL (160-400); Red Blood Count 5.16 X10*6/uL (4.20-5.50); Red Cell Distribution Width 13.3 % (11.0-16.0); SCAN SMEAR FLAG 1; White Blood Count 8.4 X10*3/uL (4.8-10.8)
[2021-03-22 09:10] LABS: Alanine Aminotransferase 9 U/L (0-31); Albumin Level 4.1 g/dL (3.5-5.0); Alkaline Phosphatase 75 U/L (39-117); Anion Gap 13 (12-20); Aspartate Amino Transferase 18 U/L (5-31); Bilirubin Total 0.3 mg/dL (0.0-1.0); Blood Urea Nitrogen 16 mg/dL (9-16); Calcium 9.8 mg/dL (8.4-10.2); Carbon Dioxide 27 mmol/L (22-29); Chloride 104 mmol/L (96-108); Estimated Glomerular Filt Rate 56; Glucose Random 126 mg/dL (60-115); Potassium 3.8 mmol/L (3.3-5.1); Sodium 140 mmol/L (135-145); Total Protein 6.7 g/dL (6.5-8.0)
[2021-03-22 09:15] LABS: SLIDE REVIEW VERIFIED
[2021-03-25 18:27] LABS: CA-125 72 U/mL (<35)
== END 2021-03-22 08:10 | disposition home or self-care (01) ==
LOC: HO.LAB 08:09
PROVIDERS: PCP Internal Medicine Medical Oncology; Visit Provider Internal Medicine Medical Oncology
DX: C56.9 Malignant neoplasm of unspecified ovary (principal)
CPT/HCPCS: 36415; 80053; 85025; 86304

== ENCOUNTER 2021-04-18 08:04 | Outpatient (REF) | payer MEDICARE, SELFPAY ==
[2021-04-18 08:42] LABS: Basophils Absolute Auto 0.1 X10*3/uL (0.0-0.2); Basophils Percent Auto 0.7 % (0-2); Eosinophils Absolute Auto 0.3 X10*3/uL (0.0-0.4); Eosinophils Percent Auto 3.7 % (0-4); Hematocrit 48.2 % (37.0-47.0); Hemoglobin 14.9 g/dl (12.0-16.0); Imm Gran Abs Auto 0.03 X10*3/uL (0.00-0.03); Imm Gran Pct Auto 0.4 % (0.0-0.4); Lymphocytes Absolute Auto 1.8 X10*3/uL (1.2-4.9); Lymphocytes Percent Auto 26.2 % (20-40); MANUAL DIFF FLAG SCAN; Mean Corpuscular HGB Conc 30.9 g/dl (31.0-35.0); Mean Corpuscular Hemoglobin 29.1 pg (27.0-33.0); Mean Corpuscular Volume 94.1 fL (80.0-98.0); Mean Platelet Volume 9.1 fL (9.4-12.3); Monocytes Absolute Auto 1.5 X10*3/uL (0.1-1.2); Monocytes Percent Auto 21.8 % (2-11); Neutrophils Percent Auto 47.2 % (45-73); Platelet Count 423 X10*3/uL (160-400); Red Blood Count 5.12 X10*6/uL (4.20-5.50); Red Cell Distribution Width 13.5 % (11.0-16.0); SCAN SMEAR FLAG 1; White Blood Count 6.8 X10*3/uL (4.8-10.8)
[2021-04-18 09:13] LABS: Alanine Aminotransferase 8 U/L (0-31); Albumin Level 4.2 g/dL (3.5-5.0); Alkaline Phosphatase 72 U/L (39-117); Anion Gap 12 (12-20); Aspartate Amino Transferase 19 U/L (5-31); Bilirubin Total 0.4 mg/dL (0.0-1.0); Blood Urea Nitrogen 14 mg/dL (9-16); Calcium 9.9 mg/dL (8.4-10.2); Carbon Dioxide 29 mmol/L (22-29); Chloride 105 mmol/L (96-108); Estimated Glomerular Filt Rate 59; Glucose Random 109 mg/dL (60-115); Sodium 142 mmol/L (135-145); Total Protein 6.7 g/dL (6.5-8.0)
[2021-04-18 09:47] LABS: SLIDE REVIEW VERIFIED
[2021-04-19 18:01] LABS: CA-125 89 U/mL (<35)
== END 2021-04-18 08:05 | disposition home or self-care (01) ==
LOC: HO.LAB 08:04
PROVIDERS: Visit Provider Internal Medicine Medical Oncology
DX: C56.9 Malignant neoplasm of unspecified ovary (principal)
CPT/HCPCS: 36415; 80053; 85025; 86304

== ENCOUNTER 2021-05-13 08:06 | Outpatient (REF) | payer MEDICARE, SELFPAY ==
[2021-05-13 08:40] LABS: Basophils Absolute Auto 0.1 X10*3/uL (0.0-0.2); Basophils Percent Auto 1.1 % (0-2); Eosinophils Absolute Auto 0.2 X10*3/uL (0.0-0.4); Eosinophils Percent Auto 3.9 % (0-4); Hematocrit 44.4 % (37.0-47.0); Hemoglobin 13.7 g/dl (12.0-16.0); Imm Gran Abs Auto 0.02 X10*3/uL (0.00-0.03); Imm Gran Pct Auto 0.4 % (0.0-0.4); Lymphocytes Absolute Auto 1.7 X10*3/uL (1.2-4.9); Lymphocytes Percent Auto 31.1 % (20-40); MANUAL DIFF FLAG SCAN; Mean Corpuscular HGB Conc 30.9 g/dl (31.0-35.0); Mean Corpuscular Hemoglobin 29.6 pg (27.0-33.0); Mean Corpuscular Volume 95.9 fL (80.0-98.0); Mean Platelet Volume 8.9 fL (9.4-12.3); Monocytes Absolute Auto 1.3 X10*3/uL (0.1-1.2); Monocytes Percent Auto 22.5 % (2-11); Neutrophils Absolute Auto 2.3 x10*3/uL (2.0-8.3); Platelet Count 387 X10*3/uL (160-400); Red Blood Count 4.63 X10*6/uL (4.20-5.50); Red Cell Distribution Width 14.4 % (11.0-16.0); SCAN SMEAR FLAG 1; White Blood Count 5.6 X10*3/uL (4.8-10.8)
[2021-05-13 09:04] LABS: SLIDE REVIEW VERIFIED
[2021-05-13 09:05] LABS: Alanine Aminotransferase 11 U/L (0-31); Albumin Level 3.9 g/dL (3.5-5.0); Alkaline Phosphatase 60 U/L (39-117); Anion Gap 13 (12-20); Aspartate Amino Transferase 18 U/L (5-31); Bilirubin Total 0.3 mg/dL (0.0-1.0); Blood Urea Nitrogen 12 mg/dL (9-16); Calcium 9.4 mg/dL (8.4-10.2); Carbon Dioxide 25 mmol/L (22-29); Chloride 107 mmol/L (96-108); Estimated Glomerular Filt Rate > 60; Glucose Random 118 mg/dL (60-115); Sodium 141 mmol/L (135-145); Total Protein 6.3 g/dL (6.5-8.0)
[2021-05-15 03:10] LABS: CA-125 49 U/mL (<35)
== END 2021-05-13 08:07 | disposition home or self-care (01) ==
LOC: HO.LAB 08:06
PROVIDERS: Visit Provider Internal Medicine Medical Oncology
DX: C56.9 Malignant neoplasm of unspecified ovary (principal)
CPT/HCPCS: 36415; 80053; 85025; 86304

== ENCOUNTER 2021-05-27 11:54 | Outpatient (REF) | payer MEDICARE, SELFPAY ==
--- NOTE | ~2021-05-27 | MM_ITS ---
EXAMINATION: MM DIAGNOSTIC DIGITAL BREAST TOMOSYNTHESIS, BILATERAL CLINICAL INFORMATION: Due for yearly. Also follow-up probable benign calcifications mid 12:00 right breast. Personal history ovarian cancer. The lifetime risk of breast cancer based on the Tyrer-Cuzick Model is 1%. COMPARISON: Mammography: 05/14/2020, 11/04/2019, 04/25/2019, 04/15/2019 (BI-RADS 0) 02/26/2018 TECHNIQUE: Digital breast tomosynthesis is performed in both the craniocaudal and mediolateral oblique views along with computer-aided detection (CAD). Synthesized 2D images are generated from the tomosynthesis. Additional magnification right CC and magnification right ML views are obtained. FINDINGS: There are scattered areas of fibroglandular density (ACR BI-RADS breast composition Category b). There are no significant masses, abnormal calcifications, or other abnormalities. Parenchymal pattern is similar to prior studies. No interval mass or developing density. There are benign round relatively coarse grouped calcifications anterior right breast similar to prior studies. The punctate calcifications mid 12:00 right breast for follow-up are stable and now considered to be benign. There is a port again seen overlying left axilla on MLO view. No significant changes. Results are provided to the patient at time of visit by the technologist. MM/MM tomosynthesis diagnostic BI IMPRESSION: No mammographic evidence of malignancy. ASSESSMENT: BI-RADS 2: Benign RECOMMENDATION: Routine annual mammography screening. This patient's information was entered into a reminder system with a target due date for their next mammogram.
== END 2021-05-27 11:55 | disposition home or self-care (01) ==
LOC: HO.MAMMO 11:54
PROVIDERS: Visit Provider Internal Medicine Medical Oncology
DX: R92.1 Mammographic calcification found on diagnostic imaging of breast (principal); C56.9 Malignant neoplasm of unspecified ovary
CPT/HCPCS: 77062; 77066

== ENCOUNTER 2021-06-13 09:18 | Outpatient (REF) | payer MEDICARE, SELFPAY ==
[2021-06-13 09:54] LABS: Basophils Absolute Auto 0.1 X10*3/uL (0.0-0.2); Basophils Percent Auto 0.8 % (0-2); Eosinophils Absolute Auto 0.1 X10*3/uL (0.0-0.4); Eosinophils Percent Auto 1.5 % (0-4); Hematocrit 40.3 % (37.0-47.0); Hemoglobin 12.7 g/dl (12.0-16.0); Imm Gran Abs Auto 0.05 X10*3/uL (0.00-0.03); Imm Gran Pct Auto 0.8 % (0.0-0.4); Lymphocytes Absolute Auto 1.6 X10*3/uL (1.2-4.9); Lymphocytes Percent Auto 23.8 % (20-40); MANUAL DIFF FLAG SCAN; Mean Corpuscular HGB Conc 31.5 g/dl (31.0-35.0); Mean Corpuscular Hemoglobin 29.4 pg (27.0-33.0); Mean Corpuscular Volume 93.3 fL (80.0-98.0); Monocytes Absolute Auto 1.8 X10*3/uL (0.1-1.2); Monocytes Percent Auto 26.9 % (2-11); Neutrophils Absolute Auto 3.1 x10*3/uL (2.0-8.3); Neutrophils Percent Auto 46.2 % (45-73); Platelet Count 463 X10*3/uL (160-400); Red Blood Count 4.32 X10*6/uL (4.20-5.50); Red Cell Distribution Width 14.5 % (11.0-16.0); SCAN SMEAR FLAG 1; White Blood Count 6.6 X10*3/uL (4.8-10.8)
[2021-06-13 10:16] LABS: Alanine Aminotransferase 14 U/L (0-31); Albumin Level 3.5 g/dL (3.5-5.0); Alkaline Phosphatase 51 U/L (39-117); Anion Gap 9 (12-20); Aspartate Amino Transferase 28 U/L (5-31); Bilirubin Total 0.5 mg/dL (0.0-1.0); Blood Urea Nitrogen 15 mg/dL (9-16); Calcium 8.7 mg/dL (8.4-10.2); Carbon Dioxide 28 mmol/L (22-29); Chloride 105 mmol/L (96-108); Estimated Glomerular Filt Rate > 60; Glucose Random 80 mg/dL (60-115); Potassium 3.4 mmol/L (3.3-5.1); SLIDE REVIEW VERIFIED; Sodium 139 mmol/L (135-145); Total Protein 5.8 g/dL (6.5-8.0)
[2021-06-14 06:41] LABS: CA-125 50 U/mL (<35)
== END 2021-06-13 09:19 | disposition home or self-care (01) ==
LOC: HO.LAB 09:18
PROVIDERS: PCP Internal Medicine Medical Oncology; Visit Provider Internal Medicine Medical Oncology
DX: C56.9 Malignant neoplasm of unspecified ovary (principal)
CPT/HCPCS: 36415; 80053; 85025; 86304

== ENCOUNTER 2021-07-11 08:02 | Outpatient (REF) | payer MEDICARE, SELFPAY ==
[2021-07-11 08:24] LABS: MANUAL DIFF FLAG NO
[2021-07-11 08:44] LABS: Basophils Percent Auto 0.5 % (0-2); Eosinophils Absolute Auto 0.4 X10*3/uL (0.0-0.4); Eosinophils Percent Auto 5.7 % (0-4); Hematocrit 46.1 % (37.0-47.0); Hemoglobin 14.2 g/dl (12.0-16.0); Imm Gran Abs Auto 0.03 X10*3/uL (0.00-0.03); Imm Gran Pct Auto 0.5 % (0.0-0.4); Lymphocytes Absolute Auto 1.9 X10*3/uL (1.2-4.9); Lymphocytes Percent Auto 29.7 % (20-40); Mean Corpuscular HGB Conc 30.8 g/dl (31.0-35.0); Mean Corpuscular Hemoglobin 29.5 pg (27.0-33.0); Mean Corpuscular Volume 95.6 fL (80.0-98.0); Mean Platelet Volume 9.3 fL (9.4-12.3); Monocytes Absolute Auto 1.2 X10*3/uL (0.1-1.2); Monocytes Percent Auto 17.9 % (2-11); Neutrophils Percent Auto 45.7 % (45-73); Platelet Count 308 X10*3/uL (160-400); Red Blood Count 4.82 X10*6/uL (4.20-5.50); Red Cell Distribution Width 14.6 % (11.0-16.0); White Blood Count 6.5 X10*3/uL (4.8-10.8)
[2021-07-11 09:07] LABS: Alanine Aminotransferase 8 U/L (0-31); Albumin Level 3.9 g/dL (3.5-5.0); Alkaline Phosphatase 70 U/L (39-117); Anion Gap 11 (12-20); Aspartate Amino Transferase 18 U/L (5-31); Bilirubin Total 0.3 mg/dL (0.0-1.0); Blood Urea Nitrogen 15 mg/dL (9-16); Calcium 9.6 mg/dL (8.4-10.2); Carbon Dioxide 28 mmol/L (22-29); Chloride 105 mmol/L (96-108); Estimated Glomerular Filt Rate > 60; Glucose Random 123 mg/dL (60-115); Sodium 140 mmol/L (135-145); Total Protein 6.8 g/dL (6.5-8.0)
[2021-07-12 09:01] LABS: CA-125 57 U/mL (<35)
== END 2021-07-11 08:03 | disposition home or self-care (01) ==
LOC: HO.LAB 08:02
PROVIDERS: PCP Internal Medicine Medical Oncology; Visit Provider Internal Medicine Medical Oncology
DX: C56.9 Malignant neoplasm of unspecified ovary (principal)
CPT/HCPCS: 36415; 80053; 85025; 86304

== ENCOUNTER 2021-08-08 07:53 | Outpatient (REF) | payer MEDICARE, SELFPAY ==
[2021-08-08 08:11] LABS: MANUAL DIFF FLAG NO
[2021-08-08 08:26] LABS: Basophils Percent Auto 0.4 % (0-2); Eosinophils Absolute Auto 0.2 X10*3/uL (0.0-0.4); Eosinophils Percent Auto 2.4 % (0-4); Hematocrit 46.7 % (37.0-47.0); Hemoglobin 14.5 g/dl (12.0-16.0); Imm Gran Abs Auto 0.04 X10*3/uL (0.00-0.03); Imm Gran Pct Auto 0.6 % (0.0-0.4); Lymphocytes Absolute Auto 2.2 X10*3/uL (1.2-4.9); Lymphocytes Percent Auto 33.2 % (20-40); Mean Corpuscular Hemoglobin 29.3 pg (27.0-33.0); Mean Corpuscular Volume 94.3 fL (80.0-98.0); Mean Platelet Volume 9.2 fL (9.4-12.3); Monocytes Absolute Auto 1.2 X10*3/uL (0.1-1.2); Monocytes Percent Auto 18.4 % (2-11); Platelet Count 384 X10*3/uL (160-400); Red Blood Count 4.95 X10*6/uL (4.20-5.50); Red Cell Distribution Width 14.9 % (11.0-16.0); White Blood Count 6.7 X10*3/uL (4.8-10.8)
[2021-08-08 08:45] LABS: Alanine Aminotransferase 6 U/L (0-31); Alkaline Phosphatase 76 U/L (39-117); Anion Gap 13 (12-20); Aspartate Amino Transferase 19 U/L (5-31); Bilirubin Total 0.5 mg/dL (0.0-1.0); Blood Urea Nitrogen 13 mg/dL (9-16); Calcium 9.7 mg/dL (8.4-10.2); Carbon Dioxide 27 mmol/L (22-29); Chloride 104 mmol/L (96-108); Estimated Glomerular Filt Rate 56; Glucose Random 103 mg/dL (60-115); Potassium 3.9 mmol/L (3.3-5.1); Sodium 140 mmol/L (135-145)
[2021-08-09 20:17] LABS: CA-125 50 U/mL (<35)
== END 2021-08-08 07:54 | disposition home or self-care (01) ==
LOC: HO.LAB 07:53
PROVIDERS: PCP Internal Medicine Medical Oncology; Visit Provider Internal Medicine Medical Oncology
DX: C56.9 Malignant neoplasm of unspecified ovary (principal)
CPT/HCPCS: 36415; 80053; 85025; 86304

== ENCOUNTER 2021-08-15 10:43 | Outpatient (REF) | payer MEDICARE, SELFPAY ==
--- NOTE | ~2021-08-15 | FL_ITS ---
PROCEDURE: XR FLUOROSCOPY CLINICAL INFORMATION: Port-A-Cath check. COMPARISON: 12/22/2019 TECHNIQUE: Port catheter check. FINDINGS: Informed consent was obtained from the patient prior to the procedure. During this process, the procedure and potential alternatives were explained, along with the intended outcome and benefits. The risks of the procedure, as well as the risk of not doing the procedure, were discussed. The patient was given the opportunity to ask questions regarding the procedure and appeared competent to make medical decisions. A signed consent form which documents this discussion was placed in the medical record. Using sterile technique the port reservoir was accessed with a Jaimes needle. The port could not be aspirated. IV contrast was then instilled which demonstrated opacification of the port and port catheter without evidence of extravasation from the reservoir through the left subclavian vein and innominate vein with tip at the catheter lying in the superior vena cava. The port flushed difficulty but there is noted to be a small amount of flow from the tip of the catheter with a fibrin sheath being present. At the end of the procedure blood could be aspirated. The port was flushed with Hep-Lock solution. FLUOROSCOPY TIME: 1.2 minute. DOSE AREA PRODUCT: 2.290 Gy-cm2 (cordero-centimeter squared). FL/FL fluoroscopy <1hr IMPRESSION: Fibrin sheath end of the port catheter within the superior vena cava.
== END 2021-08-15 10:44 | disposition home or self-care (01) ==
LOC: HO.XRAY 10:43
PROVIDERS: PCP Internal Medicine Medical Oncology; Visit Provider Internal Medicine Medical Oncology
DX: C56.9 Malignant neoplasm of unspecified ovary (principal)
CPT/HCPCS: 76000

== ENCOUNTER 2021-09-04 08:04 | Outpatient (REF) | payer MEDICARE, SELFPAY ==
[2021-09-04 08:31] LABS: MANUAL DIFF FLAG NO
[2021-09-04 08:43] LABS: Basophils Percent Auto 0.5 % (0-2); Eosinophils Absolute Auto 0.4 X10*3/uL (0.0-0.4); Eosinophils Percent Auto 4.9 % (0-4); Hematocrit 47.9 % (37.0-47.0); Hemoglobin 14.7 g/dl (12.0-16.0); Imm Gran Abs Auto 0.03 X10*3/uL (0.00-0.03); Imm Gran Pct Auto 0.4 % (0.0-0.4); Lymphocytes Absolute Auto 1.9 X10*3/uL (1.2-4.9); Lymphocytes Percent Auto 23.5 % (20-40); Mean Corpuscular HGB Conc 30.7 g/dl (31.0-35.0); Mean Corpuscular Hemoglobin 29.2 pg (27.0-33.0); Mean Platelet Volume 9.5 fL (9.4-12.3); Monocytes Absolute Auto 1.2 X10*3/uL (0.1-1.2); Monocytes Percent Auto 14.2 % (2-11); Neutrophils Absolute Auto 4.7 x10*3/uL (2.0-8.3); Neutrophils Percent Auto 56.5 % (45-73); Platelet Count 335 X10*3/uL (160-400); Red Blood Count 5.04 X10*6/uL (4.20-5.50); Red Cell Distribution Width 14.7 % (11.0-16.0); White Blood Count 8.2 X10*3/uL (4.8-10.8)
[2021-09-04 09:24] LABS: Alanine Aminotransferase 11 U/L (0-31); Alkaline Phosphatase 69 U/L (39-117); Anion Gap 12 (12-20); Aspartate Amino Transferase 19 U/L (5-31); Bilirubin Total 0.5 mg/dL (0.0-1.0); Blood Urea Nitrogen 14 mg/dL (9-16); Calcium 9.9 mg/dL (8.4-10.2); Carbon Dioxide 29 mmol/L (22-29); Chloride 103 mmol/L (96-108); Estimated Glomerular Filt Rate 56; Glucose Random 88 mg/dL (60-115); Sodium 140 mmol/L (135-145); Total Protein 6.8 g/dL (6.5-8.0)
[2021-09-06 03:20] LABS: CA 125 New Method 41 U/mL (<35); CA-125 41 U/mL (<35)
== END 2021-09-04 08:05 | disposition home or self-care (01) ==
LOC: HO.LAB 08:04
PROVIDERS: PCP Internal Medicine Medical Oncology; Visit Provider Internal Medicine Medical Oncology
DX: C56.9 Malignant neoplasm of unspecified ovary (principal)
CPT/HCPCS: 36415; 80053; 85025; 86304

== ENCOUNTER 2021-10-01 07:33 | Outpatient (REF) | payer MEDICARE, SELFPAY ==
--- NOTE | ~2021-10-01 | CT_ITS ---
EXAMINATION: CT ABDOMEN AND PELVIS WITH CONTRAST CLINICAL INFORMATION: Ovarian cancer. COMPARISON: Previous CTs of the abdomen and pelvis, most recent 02/20/2021. TECHNIQUE: Multidetector volumetric images were obtained from the superior aspect of the liver through the pubic symphysis following administration 85 mL of Omnipaque 350 intravenous contrast. Sagittal and coronal reformatted images were obtained on the technologist's workstation. Oral contrast: Yes This CT examination was performed using dose optimization techniques as appropriate, variously including the following: *Automated exposure control *Adjustment of mA and/or kV according to patient size (this includes techniques or standardized protocols for targeted exams where dose is matched to indication/reason for exam; i.e. extremities or head) *Use of iterative reconstruction technique DLP: 379 mGy-cm FINDINGS: LUNG BASES: The visualized lung bases are clear. There is a small left posterior diaphragmatic hernia containing fat. There is a small left anterior diaphragmatic or cardiophrenic angle lymph node, largest measuring 7 mm (axial image 9, series 3) that is stable. LIVER, GALLBLADDER, AND BILIARY TREE: There is a 1.7 cm complex cystic lesion in the central liver. This is unchanged in size. This may be slightly higher in attenuation or more solid compared to the previous exam. The liver is otherwise unremarkable. The gallbladder is unremarkable. There is no biliary duct dilatation. PANCREAS: Unremarkable. SPLEEN: There is a 3.5 x 4.5 cm complex cyst with a single thin septation in the spleen that is stable. There is an adjacent smaller, more inferior 7 mm simple cyst that is stable. ADRENAL GLANDS: Unremarkable. KIDNEYS AND URETERS: The kidneys are normal in size, shape, and attenuation. No hydronephrosis, hydroureter, or calculi are seen. No perinephric stranding. There is mild right ureteral dilatation down to the right pelvic mass. This is increased from the previous exam. BLADDER: Unremarkable. GASTROINTESTINAL TRACT: The small and large bowel is unremarkable. The appendix is not seen. ABDOMINAL WALL: No significant hernia is appreciated. LYMPH NODES: There are small periportal lymph nodes that are stable. There is a upper abdominal low-attenuation retroperitoneal lymph node in the aortocaval region that measures 1.4 x 1.9 cm (axial image 24, series 3) that is stable. There are additional smaller retroperitoneal lymph nodes in the abdomen that are stable. There are small bilateral low-attenuation retroperitoneal lymph nodes in the pelvis that are stable. Largest lymph node is a left internal iliac or iliac bifurcation lymph node measuring 1.2 cm in short axis (axial image 53) and a left external iliac lymph node measuring 9 mm in short axis (axial image 61, series 3) and a right external iliac lymph node measuring 1 cm in short axis (axial image 58, series 3). No new or increasing adenopathy is seen. There are small mesenteric lymph nodes that are stable, largest measuring 5 mm, in the right lower quadrant (axial image 42, series 3). No ascites. VASCULAR: There is evidence of atherosclerotic disease. There is mild dilatation of the lower abdominal aorta measuring 2.6 x 2.7 cm. PELVIC VISCERA: There is a 4 x 5 cm right pelvic mass. This does not appear appreciably changed in size. This is slightly heterogeneous in attenuation. This may be slightly higher in attenuation compared to the previous exam. This has small peripheral calcifications that are stable. This has several new small peripheral air collections, largest measuring 5 x 10 mm. The uterus appears to have been removed. No left pelvic mass is seen. OSSEOUS STRUCTURES: Unremarkable. CT/CT abdomen pelvis w con IMPRESSION: Interval increase in density in the right pelvic mass and new small peripheral air collections. This does not appear appreciably changed in size. There is increasing right ureteral dilatation, likely secondary to the mass. No right hydronephrosis. Slight interval increase in density in the cystic lesion in the central liver. Stable cystic lesion in the spleen. Stable retroperitoneal, periportal and small bowel mesentery lymph nodes and anterior diaphragmatic or cardiophrenic angle lymphadenopathy. Fleischner guidelines were followed.
[2021-10-01 07:42] LABS: MANUAL DIFF FLAG NO
[2021-10-01 08:20] LABS: Basophils Absolute Auto 0.1 X10*3/uL (0.0-0.2); Basophils Percent Auto 0.6 % (0-2); Eosinophils Absolute Auto 0.2 X10*3/uL (0.0-0.4); Eosinophils Percent Auto 1.9 % (0-4); Hematocrit 45.4 % (37.0-47.0); Hemoglobin 14.3 g/dl (12.0-16.0); Imm Gran Abs Auto 0.08 X10*3/uL (0.00-0.03); Lymphocytes Absolute Auto 3.1 X10*3/uL (1.2-4.9); Lymphocytes Percent Auto 36.9 % (20-40); Mean Corpuscular HGB Conc 31.5 g/dl (31.0-35.0); Mean Corpuscular Hemoglobin 29.9 pg (27.0-33.0); Mean Platelet Volume 8.9 fL (9.4-12.3); Monocytes Absolute Auto 1.5 X10*3/uL (0.1-1.2); Monocytes Percent Auto 17.4 % (2-11); Neutrophils Absolute Auto 3.5 x10*3/uL (2.0-8.3); Neutrophils Percent Auto 42.2 % (45-73); Platelet Count 553 X10*3/uL (160-400); Red Blood Count 4.78 X10*6/uL (4.20-5.50); Red Cell Distribution Width 14.1 % (11.0-16.0); White Blood Count 8.3 X10*3/uL (4.8-10.8)
[2021-10-01 08:47] LABS: Alanine Aminotransferase 7 U/L (0-31); Albumin Level 3.9 g/dL (3.5-5.0); Alkaline Phosphatase 123 U/L (39-117); Anion Gap 15 (12-20); Aspartate Amino Transferase 18 U/L (5-31); Bilirubin Total 0.3 mg/dL (0.0-1.0); Blood Urea Nitrogen 13 mg/dL (9-16); Calcium 9.7 mg/dL (8.4-10.2); Carbon Dioxide 24 mmol/L (22-29); Chloride 103 mmol/L (96-108); Estimated Glomerular Filt Rate > 60; Glucose Random 91 mg/dL (60-115); Potassium 4.2 mmol/L (3.3-5.1); Sodium 138 mmol/L (135-145); Total Protein 6.7 g/dL (6.5-8.0)
[2021-10-01] MEDS: iohexoL 350 MG/ML 100 ML INFUS..BTL IV (11:09)
[2021-10-01] MEDS: Barium Sulfate Oral (Mocha) 450 ML ORAL.SUSP 900 ML PO (11:10)
[2021-10-02 06:57] LABS: CA 125 New Method 36 U/mL (<35); CA-125 36 U/mL (<35)
== END 2021-10-01 07:34 | disposition home or self-care (01) ==
LOC: HO.CT 07:33
PROVIDERS: PCP Internal Medicine Medical Oncology; Visit Provider Internal Medicine Medical Oncology
DX: C56.9 Malignant neoplasm of unspecified ovary (principal)
CPT/HCPCS: 36415; 74177; 80053; 85025; 86304; Q9967

== ENCOUNTER 2021-10-30 07:57 | Outpatient (REF) | payer MEDICARE, SELFPAY ==
[2021-10-30 08:28] LABS: Basophils Absolute Auto 0.1 X10*3/uL (0.0-0.2); Basophils Percent Auto 0.9 % (0-2); Eosinophils Absolute Auto 0.2 X10*3/uL (0.0-0.4); Eosinophils Percent Auto 2.7 % (0-4); Hematocrit 44.1 % (37.0-47.0); Hemoglobin 13.8 g/dl (12.0-16.0); Imm Gran Abs Auto 0.05 X10*3/uL (0.00-0.03); Imm Gran Pct Auto 0.8 % (0.0-0.4); Lymphocytes Absolute Auto 2.2 X10*3/uL (1.2-4.9); Lymphocytes Percent Auto 32.5 % (20-40); MANUAL DIFF FLAG SCAN; Mean Corpuscular HGB Conc 31.3 g/dl (31.0-35.0); Mean Corpuscular Hemoglobin 29.8 pg (27.0-33.0); Mean Corpuscular Volume 95.2 fL (80.0-98.0); Mean Platelet Volume 9.1 fL (9.4-12.3); Monocytes Absolute Auto 1.4 X10*3/uL (0.1-1.2); Monocytes Percent Auto 20.4 % (2-11); Neutrophils Absolute Auto 2.8 x10*3/uL (2.0-8.3); Neutrophils Percent Auto 42.7 % (45-73); Platelet Count 460 X10*3/uL (160-400); Red Blood Count 4.63 X10*6/uL (4.20-5.50); SCAN SMEAR FLAG 1; White Blood Count 6.6 X10*3/uL (4.8-10.8)
[2021-10-30 08:46] LABS: SLIDE REVIEW VERIFIED
[2021-10-30 08:54] LABS: Alanine Aminotransferase 9 U/L (0-31); Albumin Level 3.9 g/dL (3.5-5.0); Alkaline Phosphatase 97 U/L (39-117); Anion Gap 9 (12-20); Aspartate Amino Transferase 18 U/L (5-31); Bilirubin Total 0.3 mg/dL (0.0-1.0); Blood Urea Nitrogen 11 mg/dL (9-16); Calcium 9.2 mg/dL (8.4-10.2); Carbon Dioxide 29 mmol/L (22-29); Chloride 105 mmol/L (96-108); Estimated Glomerular Filt Rate > 60; Glucose Random 119 mg/dL (60-115); Potassium 3.8 mmol/L (3.3-5.1); Sodium 139 mmol/L (135-145); Total Protein 6.7 g/dL (6.5-8.0)
[2021-10-31 22:45] LABS: CA 125 New Method 39 U/mL (<35); CA-125 39 U/mL (<35)
== END 2021-10-30 07:58 | disposition home or self-care (01) ==
LOC: HO.LAB 07:57
PROVIDERS: PCP Internal Medicine Medical Oncology; Visit Provider Internal Medicine Medical Oncology
DX: C56.9 Malignant neoplasm of unspecified ovary (principal)
CPT/HCPCS: 36415; 80053; 85025; 86304

== ENCOUNTER 2021-11-27 08:29 | Outpatient (REF) | payer MEDICARE, SELFPAY ==
[2021-11-27 08:55] LABS: MANUAL DIFF FLAG NO
[2021-11-27 09:43] LABS: Basophils Percent Auto 0.5 % (0-2); Eosinophils Absolute Auto 0.5 X10*3/uL (0.0-0.4); Eosinophils Percent Auto 5.5 % (0-4); Hematocrit 46.4 % (37.0-47.0); Hemoglobin 14.4 g/dl (12.0-16.0); Imm Gran Abs Auto 0.03 X10*3/uL (0.00-0.03); Imm Gran Pct Auto 0.4 % (0.0-0.4); Lymphocytes Absolute Auto 2.3 X10*3/uL (1.2-4.9); Lymphocytes Percent Auto 26.9 % (20-40); Mean Corpuscular Hemoglobin 29.5 pg (27.0-33.0); Mean Corpuscular Volume 95.1 fL (80.0-98.0); Mean Platelet Volume 9.4 fL (9.4-12.3); Monocytes Absolute Auto 1.2 X10*3/uL (0.1-1.2); Monocytes Percent Auto 13.9 % (2-11); Neutrophils Absolute Auto 4.5 x10*3/uL (2.0-8.3); Neutrophils Percent Auto 52.8 % (45-73); Platelet Count 362 X10*3/uL (160-400); Red Blood Count 4.88 X10*6/uL (4.20-5.50); Red Cell Distribution Width 13.9 % (11.0-16.0); White Blood Count 8.5 X10*3/uL (4.8-10.8)
[2021-11-27 10:15] LABS: Alanine Aminotransferase 8 U/L (0-31); Alkaline Phosphatase 81 U/L (39-117); Anion Gap 11 (12-20); Aspartate Amino Transferase 19 U/L (5-31); Bilirubin Total 0.4 mg/dL (0.0-1.0); Blood Urea Nitrogen 15 mg/dL (9-16); Calcium 9.1 mg/dL (8.4-10.2); Carbon Dioxide 27 mmol/L (22-29); Chloride 106 mmol/L (96-108); Estimated Glomerular Filt Rate > 60; Glucose Random 103 mg/dL (60-115); Sodium 140 mmol/L (135-145); Total Protein 6.6 g/dL (6.5-8.0)
[2021-11-29 18:02] LABS: CA 125 New Method 76 U/mL (<35); CA-125 43 U/mL (<35)
== END 2021-11-27 08:30 | disposition home or self-care (01) ==
LOC: HO.LAB 08:29
PROVIDERS: PCP Internal Medicine Medical Oncology; Visit Provider Internal Medicine Medical Oncology
DX: C56.9 Malignant neoplasm of unspecified ovary (principal)
CPT/HCPCS: 36415; 80053; 85025; 86304

== ENCOUNTER 2021-12-25 12:24 | Outpatient (REF) | payer MEDICARE, SELFPAY ==
[2021-12-25 12:35] LABS: MANUAL DIFF FLAG NO
[2021-12-25 13:09] LABS: Basophils Percent Auto 0.5 % (0-2); Eosinophils Absolute Auto 0.1 X10*3/uL (0.0-0.4); Eosinophils Percent Auto 0.6 % (0-4); Hematocrit 43.1 % (37.0-47.0); Hemoglobin 13.7 g/dl (12.0-16.0); Imm Gran Abs Auto 0.09 X10*3/uL (0.00-0.03); Imm Gran Pct Auto 1.1 % (0.0-0.4); Lymphocytes Absolute Auto 2.3 X10*3/uL (1.2-4.9); Lymphocytes Percent Auto 27.9 % (20-40); Mean Corpuscular HGB Conc 31.8 g/dl (31.0-35.0); Mean Corpuscular Hemoglobin 30.2 pg (27.0-33.0); Mean Corpuscular Volume 94.9 fL (80.0-98.0); Mean Platelet Volume 9.3 fL (9.4-12.3); Monocytes Absolute Auto 1.4 X10*3/uL (0.1-1.2); Monocytes Percent Auto 17.9 % (2-11); Neutrophils Absolute Auto 4.2 x10*3/uL (2.0-8.3); Platelet Count 372 X10*3/uL (160-400); Red Blood Count 4.54 X10*6/uL (4.20-5.50); Red Cell Distribution Width 13.9 % (11.0-16.0); White Blood Count 8.1 X10*3/uL (4.8-10.8)
[2021-12-25 13:34] LABS: Alanine Aminotransferase 6 U/L (0-31); Alkaline Phosphatase 81 U/L (39-117); Anion Gap 11 (12-20); Aspartate Amino Transferase 17 U/L (5-31); Bilirubin Total 0.4 mg/dL (0.0-1.0); Blood Urea Nitrogen 13 mg/dL (9-16); Carbon Dioxide 28 mmol/L (22-29); Chloride 104 mmol/L (96-108); Estimated Glomerular Filt Rate > 60; Glucose Random 90 mg/dL (60-115); Potassium 4.2 mmol/L (3.3-5.1); Sodium 139 mmol/L (135-145); Total Protein 6.5 g/dL (6.5-8.0)
[2021-12-27 08:51] LABS: CA-125 66 U/mL (<35)
== END 2021-12-25 12:25 | disposition home or self-care (01) ==
LOC: HO.LAB 12:24
PROVIDERS: PCP Internal Medicine Medical Oncology; Visit Provider Internal Medicine Medical Oncology
DX: C56.9 Malignant neoplasm of unspecified ovary (principal)
CPT/HCPCS: 36415; 80053; 85025; 86304

== ENCOUNTER 2022-01-16 07:53 | Outpatient (REF) | payer MEDICARE, SELFPAY ==
[2022-01-16 08:09] LABS: MANUAL DIFF FLAG NO
[2022-01-16 08:30] LABS: Basophils Percent Auto 0.6 % (0-2); Eosinophils Absolute Auto 0.4 X10*3/uL (0.0-0.4); Hematocrit 43.4 % (37.0-47.0); Imm Gran Abs Auto 0.02 X10*3/uL (0.00-0.03); Imm Gran Pct Auto 0.4 % (0.0-0.4); Lymphocytes Absolute Auto 1.9 X10*3/uL (1.2-4.9); Lymphocytes Percent Auto 34.4 % (20-40); Mean Corpuscular HGB Conc 32.3 g/dl (31.0-35.0); Mean Corpuscular Hemoglobin 30.4 pg (27.0-33.0); Mean Corpuscular Volume 94.1 fL (80.0-98.0); Monocytes Absolute Auto 0.8 X10*3/uL (0.1-1.2); Monocytes Percent Auto 14.8 % (2-11); Neutrophils Absolute Auto 2.3 x10*3/uL (2.0-8.3); Neutrophils Percent Auto 42.8 % (45-73); Platelet Count 265 X10*3/uL (160-400); Red Blood Count 4.61 X10*6/uL (4.20-5.50); Red Cell Distribution Width 13.8 % (11.0-16.0); White Blood Count 5.4 X10*3/uL (4.8-10.8)
[2022-01-17 08:26] LABS: CA-125 53 U/mL (<35)
== END 2022-01-16 07:54 | disposition home or self-care (01) ==
LOC: HO.LAB 07:53
PROVIDERS: PCP Internal Medicine Medical Oncology; Visit Provider Internal Medicine Medical Oncology
DX: C56.9 Malignant neoplasm of unspecified ovary (principal)
CPT/HCPCS: 36415; 85025; 86304

== ENCOUNTER 2022-02-07 07:55 | Outpatient (REF) | payer MEDICARE, SELFPAY ==
[2022-02-07 08:07] LABS: MANUAL DIFF FLAG NO
[2022-02-07 08:19] LABS: Basophils Absolute Auto 0.1 X10*3/uL (0.0-0.2); Basophils Percent Auto 1.1 % (0-2); Eosinophils Absolute Auto 0.3 X10*3/uL (0.0-0.4); Eosinophils Percent Auto 5.5 % (0-4); Hematocrit 43.1 % (37.0-47.0); Hemoglobin 13.9 g/dl (12.0-16.0); Imm Gran Abs Auto 0.01 X10*3/uL (0.00-0.03); Imm Gran Pct Auto 0.2 % (0.0-0.4); Lymphocytes Absolute Auto 2.1 X10*3/uL (1.2-4.9); Lymphocytes Percent Auto 38.9 % (20-40); Mean Corpuscular HGB Conc 32.3 g/dl (31.0-35.0); Mean Corpuscular Hemoglobin 30.2 pg (27.0-33.0); Mean Corpuscular Volume 93.5 fL (80.0-98.0); Mean Platelet Volume 9.4 fL (9.4-12.3); Monocytes Absolute Auto 0.8 X10*3/uL (0.1-1.2); Monocytes Percent Auto 14.4 % (2-11); Neutrophils Absolute Auto 2.2 x10*3/uL (2.0-8.3); Neutrophils Percent Auto 39.9 % (45-73); Platelet Count 231 X10*3/uL (160-400); Red Blood Count 4.61 X10*6/uL (4.20-5.50); Red Cell Distribution Width 13.7 % (11.0-16.0); White Blood Count 5.4 X10*3/uL (4.8-10.8)
[2022-02-07 08:49] LABS: Alanine Aminotransferase 8 U/L (0-31); Albumin Level 3.9 g/dL (3.5-5.0); Alkaline Phosphatase 77 U/L (39-117); Anion Gap 14 (12-20); Aspartate Amino Transferase 19 U/L (5-31); Bilirubin Total 0.4 mg/dL (0.0-1.0); Blood Urea Nitrogen 13 mg/dL (9-16); Calcium 8.9 mg/dL (8.4-10.2); Carbon Dioxide 25 mmol/L (22-29); Chloride 106 mmol/L (96-108); Estimated Glomerular Filt Rate > 60; Glucose Random 130 mg/dL (60-115); Sodium 141 mmol/L (135-145); Total Protein 6.5 g/dL (6.5-8.0)
[2022-02-11 09:02] LABS: CA-125 62 U/mL (<35)
== END 2022-02-07 07:56 | disposition home or self-care (01) ==
LOC: HO.LAB 07:55
PROVIDERS: PCP Internal Medicine Medical Oncology; Visit Provider Internal Medicine Medical Oncology
DX: C56.9 Malignant neoplasm of unspecified ovary (principal)
CPT/HCPCS: 36415; 80053; 85025; 86304

== ENCOUNTER 2022-03-06 07:51 | Outpatient (REF) | payer MEDICARE, SELFPAY ==
[2022-03-06 08:36] LABS: Basophils Absolute Auto 0.1 X10*3/uL (0.0-0.2); Basophils Percent Auto 0.8 % (0-2); Eosinophils Absolute Auto 0.2 X10*3/uL (0.0-0.4); Eosinophils Percent Auto 2.8 % (0-4); Hematocrit 46.1 % (37.0-47.0); Hemoglobin 14.4 g/dl (12.0-16.0); Imm Gran Abs Auto 0.06 X10*3/uL (0.00-0.03); Imm Gran Pct Auto 0.8 % (0.0-0.4); Lymphocytes Absolute Auto 2.2 X10*3/uL (1.2-4.9); Lymphocytes Percent Auto 28.4 % (20-40); MANUAL DIFF FLAG SCAN; Mean Corpuscular HGB Conc 31.2 g/dl (31.0-35.0); Mean Corpuscular Hemoglobin 29.7 pg (27.0-33.0); Mean Corpuscular Volume 95.1 fL (80.0-98.0); Mean Platelet Volume 9.1 fL (9.4-12.3); Monocytes Absolute Auto 1.6 X10*3/uL (0.1-1.2); Monocytes Percent Auto 20.1 % (2-11); Neutrophils Absolute Auto 3.7 x10*3/uL (2.0-8.3); Neutrophils Percent Auto 47.1 % (45-73); Platelet Count 329 X10*3/uL (160-400); Red Blood Count 4.85 X10*6/uL (4.20-5.50); SCAN SMEAR FLAG 1; White Blood Count 7.8 X10*3/uL (4.8-10.8)
[2022-03-06 08:56] LABS: SLIDE REVIEW VERIFIED
[2022-03-06 09:10] LABS: Alanine Aminotransferase 10 U/L (0-31); Albumin Level 4.1 g/dL (3.5-5.0); Alkaline Phosphatase 70 U/L (39-117); Anion Gap 14 (12-20); Aspartate Amino Transferase 18 U/L (5-31); Bilirubin Total 0.4 mg/dL (0.0-1.0); Blood Urea Nitrogen 11 mg/dL (9-16); Calcium 9.5 mg/dL (8.4-10.2); Carbon Dioxide 28 mmol/L (22-29); Chloride 103 mmol/L (96-108); Estimated Glomerular Filt Rate > 60; Glucose Random 101 mg/dL (60-115); Potassium 3.8 mmol/L (3.3-5.1); Sodium 141 mmol/L (135-145); Total Protein 6.7 g/dL (6.5-8.0)
[2022-03-08 09:07] LABS: CA-125 64 U/mL (<35)
== END 2022-03-06 07:52 | disposition home or self-care (01) ==
LOC: HO.LAB 07:51
PROVIDERS: PCP Internal Medicine Medical Oncology; Visit Provider Internal Medicine Medical Oncology
DX: C56.9 Malignant neoplasm of unspecified ovary (principal)
CPT/HCPCS: 36415; 80053; 85025; 86304

== ENCOUNTER 2022-03-17 07:58 | Outpatient (REF) | payer MEDICARE, SELFPAY ==
[2022-03-17 08:28] LABS: MANUAL DIFF FLAG NO
[2022-03-17 08:36] LABS: Basophils Percent Auto 0.5 % (0-2); Eosinophils Absolute Auto 0.5 X10*3/uL (0.0-0.4); Eosinophils Percent Auto 6.9 % (0-4); Hemoglobin 14.1 g/dl (12.0-16.0); Imm Gran Abs Auto 0.03 X10*3/uL (0.00-0.03); Imm Gran Pct Auto 0.4 % (0.0-0.4); Lymphocytes Absolute Auto 1.6 X10*3/uL (1.2-4.9); Lymphocytes Percent Auto 20.8 % (20-40); Mean Corpuscular HGB Conc 31.3 g/dl (31.0-35.0); Mean Corpuscular Hemoglobin 29.6 pg (27.0-33.0); Mean Corpuscular Volume 94.3 fL (80.0-98.0); Mean Platelet Volume 8.9 fL (9.4-12.3); Monocytes Absolute Auto 0.4 X10*3/uL (0.1-1.2); Monocytes Percent Auto 4.9 % (2-11); Neutrophils Absolute Auto 5.1 x10*3/uL (2.0-8.3); Neutrophils Percent Auto 66.5 % (45-73); Platelet Count 242 X10*3/uL (160-400); Red Blood Count 4.77 X10*6/uL (4.20-5.50); Red Cell Distribution Width 13.1 % (11.0-16.0); White Blood Count 7.7 X10*3/uL (4.8-10.8)
[2022-03-17 09:05] LABS: Alanine Aminotransferase 7 U/L (0-31); Albumin Level 4.2 g/dL (3.5-5.0); Alkaline Phosphatase 68 U/L (39-117); Anion Gap 17 (12-20); Aspartate Amino Transferase 17 U/L (5-31); Bilirubin Total 0.2 mg/dL (0.0-1.0); Blood Urea Nitrogen 13 mg/dL (9-16); Calcium 9.2 mg/dL (8.4-10.2); Carbon Dioxide 24 mmol/L (22-29); Chloride 105 mmol/L (96-108); Estimated Glomerular Filt Rate > 60; Glucose Random 119 mg/dL (60-115); Potassium 3.7 mmol/L (3.3-5.1); Sodium 142 mmol/L (135-145); Total Protein 6.7 g/dL (6.5-8.0)
[2022-03-19 09:02] LABS: CA-125 62 U/mL (<35)
== END 2022-03-17 07:59 | disposition home or self-care (01) ==
LOC: HO.LAB 07:58
PROVIDERS: PCP Internal Medicine Medical Oncology; Visit Provider Internal Medicine Medical Oncology
DX: C56.9 Malignant neoplasm of unspecified ovary (principal)
CPT/HCPCS: 36415; 80053; 85025; 86304

== ENCOUNTER 2022-03-19 07:07 | Outpatient (REF) | payer MEDICARE, SELFPAY ==
--- NOTE | ~2022-03-19 | CT_ITS ---
EXAMINATION: CT ABDOMEN AND PELVIS WITH CONTRAST CLINICAL INFORMATION: History of ovarian cancer. COMPARISON: CT abdomen and pelvis 10/01/2021. TECHNIQUE: Multidetector volumetric images were obtained from the superior aspect of the liver through the pubic symphysis following administration 85 mL of Omnipaque 350 intravenous contrast. Sagittal and coronal reformatted images were obtained on the technologist's workstation. Oral contrast: No This CT examination was performed using dose optimization techniques as appropriate, variously including the following: *Automated exposure control *Adjustment of mA and/or kV according to patient size (this includes techniques or standardized protocols for targeted exams where dose is matched to indication/reason for exam; i.e. extremities or head) *Use of iterative reconstruction technique DLP: 312 mGy-cm. FINDINGS: LUNG BASES: There is minimal bibasilar atelectasis. There are small lymph nodes adjacent right cardiophrenic angle with the largest lymph node measuring 1.1 cm.. LIVER, GALLBLADDER, AND BILIARY TREE: The liver is normal in size, shape, and attenuation. There is a 2 cm complex cystic lesion centrally in the right hepatic lobe close to the felicia hepatis. No additional lesions seen. No intrahepatic ductal dilatation noted. The gallbladder is unremarkable with no evidence of radiopaque gallstones, gallbladder wall thickening, or obvious pericholecystic inflammatory changes. PANCREAS: Unremarkable. SPLEEN: There lobulated cyst along the posterior cortex measuring 4.9 cm in maximum transverse dimension on axial image 12/3. ADRENAL GLANDS: Unremarkable. KIDNEYS AND URETERS: The kidneys are normal in size, shape, and attenuation. No hydronephrosis, or calculi seen. Mild prominence of right ureter is stable. No perinephric stranding. BLADDER: Unremarkable. GASTROINTESTINAL TRACT: There is scattered stool and diverticuli seen throughout the colon without distention.Contrast is visualized throughout the small bowel loops and appears normal. Oral contrast opacified small bowel loops in the ileocecal junction appears normal. The appendix is not visualized. There is no free fluid or inflammatory process. ABDOMINAL WALL: No significant hernia is appreciated. LYMPH NODES: Small shotty lymph nodes. The largest right external iliac lymph node measures 1.3 x 1.0 cm axial image 55/3, minimally improved from 02/20/2021. Small left external iliac lymph nodes are seen as well. Retropatellar low-density lymph node preaortic space measuring 1.6 cm is stable on axial image 19/3. A few small periportal lymph nodes are seen. Small midline mesenteric 7 mm lymph node is noted. It is stable VASCULAR: There is mild atherosclerotic changes of abdominal aorta mid segment measuring 2.3 x 2.4 cm. There is partial thrombus within the segment. PELVIC VISCERA: There is a right adnexal soft tissue mass measuring 4.6 x 4.1 cm, stable and best visualized on axial image 55/3. No new lesions in the pelvis or abnormal lymph nodes. OSSEOUS STRUCTURES: No aggressive lytic or sclerotic process seen. Vacuum disc phenomena at the L4-L5 disc level is noted. No aggressive lytic or sclerotic process seen. CT/CT abdomen pelvis w IV con IMPRESSION: Right pelvic complex mass appears stable. There is peripheral air visualized at this time and may represent a large diverticulum arising from the sigmoid colon. Ovarian or paraovarian mass is considered less likely at this time. Stable complex hepatic and splenic lobulated cyst. Small right cardiophrenic and retroperitoneal lymph nodes and right iliac lymph nodes are stable. Mild atherosclerosis of mid aortic segment is stable. Stable lymph nodes in the right cardiophrenic angle. Fleischner guidelines were followed.
[2022-03-19] MEDS: Barium Sulfate Oral (Mocha) 450 ML ORAL.SUSP 900 ML PO (09:40)
[2022-03-19] MEDS: iohexoL 350 MG/ML 100 ML INFUS..BTL 85 ML IV (09:41)
== END 2022-03-19 07:08 | disposition home or self-care (01) ==
LOC: HO.CT 07:07
PROVIDERS: PCP Internal Medicine Medical Oncology; Visit Provider Internal Medicine Medical Oncology
DX: C56.9 Malignant neoplasm of unspecified ovary (principal)
CPT/HCPCS: 74177; Q9967

== ENCOUNTER → 2022-04-07 11:22 | Outpatient (BNVA) | payer MEDICARE, SELFPAY | PROVIDERS: PCP Internal Medicine Medical Oncology; Visit Provider Psychiatry & Neurology Psychiatry | DX: F41.1 Generalized anxiety disorder (principal); C56.9 Malignant neoplasm of unspecified ovary | CPT/HCPCS: 99212 ==

== ENCOUNTER 2022-05-15 07:54 | Outpatient (REF) | payer MEDICARE, SELFPAY ==
[2022-05-15 08:05] LABS: MANUAL DIFF FLAG NO
[2022-05-15 08:26] LABS: Basophils Percent Auto 0.5 % (0-2); Eosinophils Absolute Auto 0.5 X10*3/uL (0.0-0.4); Eosinophils Percent Auto 6.9 % (0-4); Hematocrit 46.1 % (37.0-47.0); Hemoglobin 14.4 g/dl (12.0-16.0); Imm Gran Abs Auto 0.03 X10*3/uL (0.00-0.03); Imm Gran Pct Auto 0.4 % (0.0-0.4); Lymphocytes Absolute Auto 2.1 X10*3/uL (1.2-4.9); Lymphocytes Percent Auto 26.8 % (20-40); Mean Corpuscular HGB Conc 31.2 g/dl (31.0-35.0); Mean Corpuscular Hemoglobin 29.8 pg (27.0-33.0); Mean Corpuscular Volume 95.4 fL (80.0-98.0); Mean Platelet Volume 9.8 fL (9.4-12.3); Monocytes Absolute Auto 0.9 X10*3/uL (0.1-1.2); Monocytes Percent Auto 11.2 % (2-11); Neutrophils Absolute Auto 4.3 x10*3/uL (2.0-8.3); Neutrophils Percent Auto 54.2 % (45-73); Platelet Count 217 X10*3/uL (160-400); Red Blood Count 4.83 X10*6/uL (4.20-5.50); Red Cell Distribution Width 13.9 % (11.0-16.0); White Blood Count 7.9 X10*3/uL (4.8-10.8)
[2022-05-15 09:00] LABS: Alanine Aminotransferase 7 U/L (0-31); Alkaline Phosphatase 64 U/L (39-117); Anion Gap 10 (12-20); Aspartate Amino Transferase 17 U/L (5-31); Bilirubin Total 0.4 mg/dL (0.0-1.0); Blood Urea Nitrogen 14 mg/dL (9-16); Calcium 9.5 mg/dL (8.4-10.2); Carbon Dioxide 30 mmol/L (22-29); Chloride 103 mmol/L (96-108); Estimated Glomerular Filt Rate > 60; Glucose Random 97 mg/dL (60-115); Potassium 3.8 mmol/L (3.3-5.1); Sodium 139 mmol/L (135-145); Total Protein 6.5 g/dL (6.5-8.0)
[2022-05-17 08:39] LABS: CA-125 64 U/mL (<35)
== END 2022-05-15 07:55 | disposition home or self-care (01) ==
LOC: HO.LAB 07:54
PROVIDERS: PCP Internal Medicine Medical Oncology; Visit Provider Internal Medicine Medical Oncology
DX: C56.9 Malignant neoplasm of unspecified ovary (principal)
CPT/HCPCS: 36415; 80053; 85025; 86304

== ENCOUNTER 2022-06-11 10:55 | Outpatient (REF) | payer MEDICARE, SELFPAY ==
--- NOTE | ~2022-06-11 | MM_ITS ---
EXAMINATION: MM SCREENING DIGITAL BREAST TOMOSYNTHESIS, BILATERAL CLINICAL INFORMATION: Screening. Asymptomatic. The lifetime risk of breast cancer based on the Tyrer-Cuzick Model is 0.7%. COMPARISON: Mammography: May 27, 2021 and studies dating back to February 06, 2015 TECHNIQUE: Digital breast tomosynthesis is performed in both the craniocaudal and mediolateral oblique views along with computer-aided detection (CAD). Synthesized 2D images are generated from the tomosynthesis. FINDINGS: The breasts are heterogeneously dense, which may obscure small masses (ACR BI-RADS breast composition Category c). There are no significant masses, abnormal calcifications, or other abnormalities. Left port catheter seen in place. MM/MM tomosynthesis screening BI IMPRESSION: No significant changes from prior exam. ASSESSMENT: BI-RADS 1: Negative RECOMMENDATION: Routine annual mammography screening. This patient's information was entered into a reminder system with a target due date for their next mammogram.
== END 2022-06-11 10:56 | disposition home or self-care (01) ==
LOC: HO.MAMMO 10:55
PROVIDERS: Visit Provider Internal Medicine Medical Oncology
DX: Z12.31 Encounter for screening mammogram for malignant neoplasm of breast (principal)
CPT/HCPCS: 77063; 77067

== ENCOUNTER 2022-06-26 07:47 | Outpatient (REF) | payer MEDICARE, SELFPAY ==
[2022-06-26 07:59] LABS: MANUAL DIFF FLAG NO
[2022-06-26 08:13] LABS: Basophils Percent Auto 0.3 % (0-2); Eosinophils Absolute Auto 0.6 X10*3/uL (0.0-0.4); Eosinophils Percent Auto 6.9 % (0-4); Hematocrit 47.4 % (37.0-47.0); Hemoglobin 15.1 g/dl (12.0-16.0); Imm Gran Abs Auto 0.03 X10*3/uL (0.00-0.03); Imm Gran Pct Auto 0.3 % (0.0-0.4); Lymphocytes Absolute Auto 2.4 X10*3/uL (1.2-4.9); Lymphocytes Percent Auto 26.1 % (20-40); Mean Corpuscular HGB Conc 31.9 g/dl (31.0-35.0); Mean Corpuscular Hemoglobin 30.1 pg (27.0-33.0); Mean Corpuscular Volume 94.6 fL (80.0-98.0); Mean Platelet Volume 9.5 fL (9.4-12.3); Monocytes Absolute Auto 1.1 X10*3/uL (0.1-1.2); Monocytes Percent Auto 12.2 % (2-11); Neutrophils Absolute Auto 4.9 x10*3/uL (2.0-8.3); Neutrophils Percent Auto 54.2 % (45-73); Platelet Count 207 X10*3/uL (160-400); Red Blood Count 5.01 X10*6/uL (4.20-5.50); Red Cell Distribution Width 13.9 % (11.0-16.0)
[2022-06-26 08:35] LABS: Alanine Aminotransferase 7 U/L (0-31); Alkaline Phosphatase 74 U/L (39-117); Anion Gap 12 (12-20); Aspartate Amino Transferase 17 U/L (5-31); Bilirubin Total 0.4 mg/dL (0.0-1.0); Blood Urea Nitrogen 14 mg/dL (9-16); Carbon Dioxide 26 mmol/L (22-29); Chloride 105 mmol/L (96-108); Estimated Glomerular Filt Rate > 60; Glucose Random 101 mg/dL (60-115); Potassium 3.8 mmol/L (3.3-5.1); Sodium 139 mmol/L (135-145); Total Protein 6.6 g/dL (6.5-8.0)
[2022-07-01 07:43] LABS: CA-125 74 U/mL (<35)
== END 2022-06-26 07:48 | disposition home or self-care (01) ==
LOC: HO.LAB 07:47
PROVIDERS: PCP Internal Medicine Medical Oncology; Visit Provider Internal Medicine Medical Oncology
DX: C56.9 Malignant neoplasm of unspecified ovary (principal)
CPT/HCPCS: 36415; 80053; 85025; 86304

== ENCOUNTER 2022-07-24 07:58 | Outpatient (REF) | payer MEDICARE, SELFPAY ==
[2022-07-24 08:08] LABS: MANUAL DIFF FLAG NO
[2022-07-24 08:36] LABS: Basophils Absolute Auto 0.1 X10*3/uL (0.0-0.2); Basophils Percent Auto 0.7 % (0-2); Eosinophils Absolute Auto 0.3 X10*3/uL (0.0-0.4); Eosinophils Percent Auto 3.7 % (0-4); Hematocrit 48.1 % (37.0-47.0); Hemoglobin 15.1 g/dl (12.0-16.0); Imm Gran Abs Auto 0.04 X10*3/uL (0.00-0.03); Imm Gran Pct Auto 0.6 % (0.0-0.4); Lymphocytes Absolute Auto 2.3 X10*3/uL (1.2-4.9); Lymphocytes Percent Auto 31.5 % (20-40); Mean Corpuscular HGB Conc 31.4 g/dl (31.0-35.0); Mean Corpuscular Hemoglobin 29.7 pg (27.0-33.0); Mean Corpuscular Volume 94.5 fL (80.0-98.0); Mean Platelet Volume 9.4 fL (9.4-12.3); Monocytes Absolute Auto 1.3 X10*3/uL (0.1-1.2); Monocytes Percent Auto 17.7 % (2-11); Neutrophils Absolute Auto 3.3 x10*3/uL (2.0-8.3); Neutrophils Percent Auto 45.8 % (45-73); Platelet Count 313 X10*3/uL (160-400); Red Blood Count 5.09 X10*6/uL (4.20-5.50); Red Cell Distribution Width 13.8 % (11.0-16.0); White Blood Count 7.2 X10*3/uL (4.8-10.8)
[2022-07-24 09:24] LABS: Alanine Aminotransferase 7 U/L (0-31); Albumin Level 4.1 g/dL (3.5-5.0); Alkaline Phosphatase 66 U/L (39-117); Anion Gap 14 (12-20); Aspartate Amino Transferase 19 U/L (5-31); Bilirubin Total 0.4 mg/dL (0.0-1.0); Blood Urea Nitrogen 14 mg/dL (9-16); Calcium 9.4 mg/dL (8.4-10.2); Carbon Dioxide 27 mmol/L (22-29); Chloride 105 mmol/L (96-108); Estimated Glomerular Filt Rate > 60; Glucose Random 108 mg/dL (60-115); Potassium 4.4 mmol/L (3.3-5.1); Sodium 142 mmol/L (135-145); Total Protein 6.5 g/dL (6.5-8.0)
[2022-07-26 08:57] LABS: CA-125 76 U/mL (<35)
== END 2022-07-24 07:59 | disposition home or self-care (01) ==
LOC: HO.LAB 07:58
PROVIDERS: PCP Internal Medicine Medical Oncology; Visit Provider Internal Medicine Medical Oncology
DX: C56.9 Malignant neoplasm of unspecified ovary (principal)
CPT/HCPCS: 36415; 80053; 85025; 86304

== ENCOUNTER 2022-07-30 11:41 | Outpatient (REF) | payer MEDICARE, SELFPAY ==
--- NOTE | ~2022-07-30 | CT_ITS ---
EXAMINATION: CT ABDOMEN AND PELVIS WITH CONTRAST CLINICAL INFORMATION: Malignant neoplasm of ovary COMPARISON: Multiple prior CT scans of the abdomen and pelvis the most recent of which was 03/18/2022 TECHNIQUE: Multidetector volumetric images were obtained from the superior aspect of the liver through the pubic symphysis following administration 85 mL of Omnipaque 350 intravenous contrast. Sagittal and coronal reformatted images were obtained on the technologist's workstation. Oral contrast: No This CT examination was performed using dose optimization techniques as appropriate, variously including the following: *Automated exposure control *Adjustment of mA and/or kV according to patient size (this includes techniques or standardized protocols for targeted exams where dose is matched to indication/reason for exam; i.e. extremities or head) *Use of iterative reconstruction technique DLP: 308 mGy-cm FINDINGS: LUNG BASES: The visualized lung bases are unremarkable. LIVER, GALLBLADDER, AND BILIARY TREE: The liver is normal in size, shape, and attenuation. No focal hepatic lesion or biliary ductal dilatation is present. The gallbladder is collapsed but otherwise unremarkable with no evidence of radiopaque gallstones, gallbladder wall thickening, or obvious pericholecystic inflammatory changes. PANCREAS: Unremarkable. SPLEEN: Unremarkable. Benign splenic cysts are present. ADRENAL GLANDS: Unremarkable. KIDNEYS AND URETERS: The kidneys are normal in size, shape, and attenuation. No hydronephrosis, hydroureter, or calculi seen. No perinephric stranding. BLADDER: Unremarkable. GASTROINTESTINAL TRACT: The small and large bowel are unremarkable. The appendix is unremarkable. ABDOMINAL WALL: No significant hernia is appreciated. LYMPH NODES: No retroperitoneal lymphadenopathy is seen. VASCULAR: Mild dilatation of the infrarenal aorta at 2.6 cm with calcific and noncalcific plaque. Atherosclerotic changes present in the common iliac arteries and to a lesser extent external iliac and common femoral. No aneurysms are seen. PELVIC VISCERA: Once again seen is a right adnexal soft tissue mass measuring 4.2 mL peripheral calcifications are seen. Some peripheral air is present in this mass as well of questionable significance. Uterus is not present. This could be communicating with the vaginal fornix which does contain air. OSSEOUS STRUCTURES: Unremarkable. CT/CT abdomen pelvis w IV con IMPRESSION: 1. No evidence of recurrent or metastatic disease in the abdomen or pelvis. 2. Right adnexal soft tissue mass with peripheral calcifications and some peripheral air of questionable significance. 3. Incidental note made of splenic cysts, mild dilatation of the infrarenal aorta and iliac vessels with atherosclerotic changes. Repeat imaging of the aorta is recommended in 5 years time. Fleischner guidelines were followed.
[2022-07-30] MEDS: iohexoL 350 MG/ML 100 ML INFUS..BTL IV (14:23)
[2022-07-30] MEDS: Barium Sulfate Oral (Vanilla) 450 ML ORAL.SUSP 900 ML PO (14:23)
== END 2022-07-30 11:42 | disposition home or self-care (01) ==
LOC: HO.CT 11:41
PROVIDERS: PCP Internal Medicine Medical Oncology; Visit Provider Internal Medicine Medical Oncology
DX: C56.9 Malignant neoplasm of unspecified ovary (principal)
CPT/HCPCS: 74177; Q9967

== ENCOUNTER 2022-08-26 09:40 | Outpatient (REF) | payer MEDICARE, SELFPAY ==
--- NOTE | ~2022-08-26 | PE_ITS ---
EXAMINATION: Fluorine-18 FDG PET/CT Scan CLINICAL INDICATION: Subsequent treatment management. Restaging of bilateral ovarian cancer. PROCEDURE: 74 minutes following the intravenous administration of 17.3 mCi of fluorine 18 FDG, images from the base of the skull to the mid thighs were obtained using a combined PET/CT scanner with CT scan based attenuation correction. No intravenous contrast was administered. Transverse, coronal, sagittal, and volume reconstruction projections were obtained. The patient's blood glucose as determined by a finger stick, was 105 mg/dl immediately prior to injection. The radiotracer was injected intravenously through left antecubital superficial vein, without any complications. Total CT exam dose-length product 278.81 mGy-cm * These CT images were obtained using dose optimization techniques as appropriate, variously including the following: Automated exposure control * Adjustment of mA and/or kV according to patient size (this includes techniques or standardized protocols for targeted exams where dose is matched to indication/reason for exam; i.e. extremities or head) * Use of iterative reconstruction technique COMPARISON: Most recent prior PET CT study study done on 09/11/2016. FINDINGS: NECK AND VISUALIZED HEAD: No FDG avid focal disease. No significant change. THORAX: No FDG avid focal disease, unchanged. Interval placement of a left subclavian Port-A-Cath present with its tip seen at the proximal SVC. There is a persistent stable sub-5 mm subpleural non-FDG avid lung nodule present within the right middle lobe anterolaterally (101/267), too small for accurate characterization. Note is made of a 0.6 cm noncalcified new non-FDG avid lung nodule within the right middle lobe anteriorly (87/267). Previously described other weak FDG avid subcentimeter lung nodules are not reproduced in the current study. No FDG avid mediastinal and/or hilar or internal mammary or axillary lymphadenopathy or pleural or pericardial effusion. ABDOMEN AND PELVIS: There is a 4.1 x 3.9 maximum dimension hypodense circumscribed right adnexal mass associated with calcification shows intense FDG avidity (SUV max of 8.9-486/698). Previously measured 4.4 x 3.3 cm with SUV max of 4.4 on the study dated 09/11/2016. No evidence of additional sites of disease within the pelvis or peritoneal/omental surface or abdominal cavity, unchanged. Previously documented FDG avid disease at segment 1 is no longer reproduced. Previously documented non-FDG avid ill-defined large hypodense lesion seen within the paracaval/central part of the right lobe of the liver measuring approximately 5.0 x 5.2 cm is no longer reproduced. Previously documented subcapsular lobulated non-FDG avid hypodense lesion involving the spleen currently measures approximately 5.1 x 2.5 cm and is unchanged (108/267). Moderately intense FDG avidity is noted in the region of the rectum, anal canal with SUV max of 5.5, previously 3.5, may represent physiologic changes however, direct visualization/clinical correlation as appropriate may be considered for further clarification. MUSCULOSKELETAL: Interval development of linear bandlike FDG avidity is noted at the level of S3 vertebral body and its appendages, seen bilaterally with SUV max of 3.4 (177/267), may represent insufficiency fracture or posttraumatic changes. Targeted MRI of the sacrum with and without contrast may be considered for further clarification, as clinically appropriate. VASCULAR: Calcific atherosclerotic coronary arterial disease is present. Abdominal aortic calcific atherosclerotic disease is also noted associated with mild ectasia without evidence of aneurysm. SUV max OF MEDIASTINAL BLOOD POOL: 2.7 SUV max OF LIVER: 3.0 PET/PET CT fusion skull to thigh IMPRESSION: 1. The index right adnexal hypodense circumscribed FDG avid mass appear relatively stable in size, currently measures 4.1 x 3.9 cm, previously 4.4 x 3.3 cm (on the study dated 09/11/2016) however, shows significant interval increase in FDG avidity with SUV max of 8.9, previously 4.4. This may indicate changes in tumor biology. 2. No additional FDG avid sites of disease within the pelvis and abdomen. Previously documented focal FDG avid liver lesion and adjacent non-FDG avid hypodense lesion within the central part of the right lobe of the liver show interval resolution since the prior study dated 09/11/2016. 3. Solitary 0.6 cm non-FDG avid new lung nodule at the right middle lobe. 4. Moderately intense FDG avidity in the region of the rectum/anal canal with SUV max of 5.5, previously 3.5, may represent physiologic changes however direct visualization/clinical correlation as appropriate may be considered for further clarification. 5. Linear bilaterally symmetric mild FDG avidity at the sacrum at the level of S3, may represent insufficiency fracture or posttraumatic changes, new since prior study. Targeted MRI of the sacrum with and without intravenous contrast may be considered for further clarification, as clinically appropriate.
== END 2022-08-26 09:41 | disposition home or self-care (01) ==
LOC: HO.PET 09:40
PROVIDERS: PCP Internal Medicine Medical Oncology; Visit Provider Internal Medicine Medical Oncology
DX: Z13.89 Encounter for screening for other disorder (principal)

== ENCOUNTER 2022-09-04 08:55 | Observation (INO) | payer MEDICARE, SELFPAY ==
--- NOTE | ~2022-09-04 | CT_ITS ---
EXAMINATION: CT ABDOMEN AND PELVIS WITHOUT AND WITH IV CONTRAST CLINICAL INFORMATION: Rectal bleeding. History of ovarian carcinoma. COMPARISON: CT abdomen/pelvis from 07/30/2022. TECHNIQUE: A volumetric helical CT acquisition of the abdomen and pelvis was obtained without and with intravenous contrast administration. Axial images are presented at 0.6 mm and 5 mm slice thickness. Coronal and sagittal reformatted images were generated at the technologist workstation. Intravenous contrast: 80 mL of Omnipaque 350. This CT examination was performed using dose optimization techniques as appropriate, variously including the following: *Automated exposure control *Adjustment of mA and/or kV according to patient size (this includes techniques or standardized protocols for targeted exams where dose is matched to indication/reason for exam; i.e. extremities or head) *Use of iterative reconstruction technique DLP: 1007 mGy-cm. FINDINGS: LUNG BASES: No acute findings in the visualized lung bases. No basilar consolidation or pleural effusion. Chronic minimal subpleural reticulation is noted at the lateral bases. LIVER, GALLBLADDER, AND BILIARY TREE: 1.8 x 1.5 cm heterogeneously hypodense lesion in the right lobe of liver at central aspect of segment 8 is a chronic abnormality. This lesion measured 5.2 x 4.6 cm on 07/15/2017, 2.3 x 2.1 cm on 01/18/2020 and 2.1 x 1.8 cm on 03/19/2022. It is unchanged compared to 07/30/2022. The chronic focal wall thickening of the gallbladder fundus is consistent with adenomyomatosis. Otherwise, gallbladder is unremarkable. No dilated bile ducts.. PANCREAS: Normal. No evidence of pancreatic mass, edema or ductal dilatation. SPLEEN: Normal size. The two cystic foci within the spleen have a stable appearance compared to recent prior exams, including 01/18/2020. ADRENAL GLANDS: Normal. KIDNEYS AND URETERS: The kidneys have normal size, shape, and attenuation. No hydronephrosis, urolithiasis or perinephric edema. There is normal excretion of contrast into the renal collecting systems on the delayed postcontrast images. BLADDER: Unremarkable. BOWEL AND PERITONEUM: Stomach is underdistended. No dilated bowel loops. No focal bowel wall thickening, mesenteric fat stranding or free fluid. Diverticula of the colon without evidence of diverticulitis. On the arterial and venous phase postcontrast images, there is no evidence of contrast extravasation into the lumen of the bowel or into the rectum. No evidence of a rectal mass or perirectal fluid collection. ABDOMINAL WALL: Unremarkable. LYMPH NODES: No retroperitoneal lymphadenopathy. There is assisted stability of a small lymph node of 0.8 cm short axis dimension along the gastrohepatic ligament. A stable lymph node in the portacaval region is 1 cm in short axis dimension. There are no enlarging lymph nodes. The chronically, mildly enlarged right and left external iliac lymph nodes of 1.1 cm short axis dimension are unchanged in size. VASCULATURE: Moderate atherosclerotic disease of the abdominal aorta and iliac arteries. The infrarenal abdominal aorta measures up to 2.6 cm maximum AP diameter. Inferior vena cava is normal. PELVIC VISCERA: Status post hysterectomy. 3.9 x 4.5 cm mass in the right adnexal region is unchanged in size compared to 10/27/2022. The mass previously measured 4.3 x 5 cm on 01/18/2020. The lesion is in contact with the right vaginal fornix. The persistent presence of gas within the periphery of the lesion could represent necrotic change and/or communication of the mass with the vaginal fornix. The lesion produces mild mass effect upon the adjacent proximal rectum but there is no visible erosion into the rectal wall. No pelvic free fluid. MUSCULOSKELETAL: No suspicious bone lesions. There is vacuum disc degenerative change at the lower lumbar spine. CT/CT gi bleed abd pel wo/w IVcon IMPRESSION: * No evidence of an active gastrointestinal bleed. * Colonic diverticulosis without evidence of acute diverticulitis. * A heterogeneously hypodense focus in the liver could represent an old treated metastasis. This lesion is smaller compared to 01/18/2020 (and is significantly smaller compared to 07/15/2017). No new liver lesion. * There are old stable cystic foci of the posterior spleen. No new splenic lesion. * There is recent stability of the complex mass in the right adnexal region which probably communicates with the vaginal fornix. No new pelvic abnormalities.
[2022-09-04 09:00] VITALS: BP 165/130; PULSE 108; RESP 18; TEMP 36.6; O2SAT 96; BMI 25.9
[2022-09-04 09:34] LABS: MANUAL DIFF FLAG NO
[2022-09-04 09:36] LABS: Basophils Percent Auto 0.3 % (0-2); Eosinophils Absolute Auto 0.1 X10*3/uL (0.0-0.4); Eosinophils Percent Auto 1.2 % (0-4); Hematocrit 44.6 % (37.0-47.0); Hemoglobin 14.4 g/dl (12.0-16.0); Imm Gran Abs Auto 0.04 X10*3/uL (0.00-0.03); Imm Gran Pct Auto 0.4 % (0.0-0.4); Lymphocytes Absolute Auto 1.5 X10*3/uL (1.2-4.9); Lymphocytes Percent Auto 13.9 % (20-40); Mean Corpuscular HGB Conc 32.3 g/dl (31.0-35.0); Mean Corpuscular Hemoglobin 29.9 pg (27.0-33.0); Mean Corpuscular Volume 92.7 fL (80.0-98.0); Monocytes Absolute Auto 1.2 X10*3/uL (0.1-1.2); Monocytes Percent Auto 11.2 % (2-11); Platelet Count 222 X10*3/uL (160-400); Red Blood Count 4.81 X10*6/uL (4.20-5.50); Red Cell Distribution Width 13.1 % (11.0-16.0); White Blood Count 10.9 X10*3/uL (4.8-10.8)
[2022-09-04 10:03] LABS: OBS Int Ctl Valid YES; OBS1 POSITIVE (NEGATIVE)
[2022-09-04 10:06] LABS: Alanine Aminotransferase 8 U/L (0-31); Albumin Level 3.9 g/dL (3.5-5.0); Alkaline Phosphatase 59 U/L (39-117); Anion Gap 13 (12-20); Aspartate Amino Transferase 19 U/L (5-31); Bilirubin Total 0.5 mg/dL (0.0-1.0); Blood Urea Nitrogen 17 mg/dL (9-16); Calcium 9.1 mg/dL (8.4-10.2); Carbon Dioxide 25 mmol/L (22-29); Chloride 108 mmol/L (96-108); Creatinine Clr Calc Pharmacy 37.1; Estimated Glomerular Filt Rate 58; Glucose Random 94 mg/dL (60-115); Sodium 142 mmol/L (135-145); Total Protein 6.3 g/dL (6.5-8.0)
[2022-09-04 10:10] LABS: INTERNATIONAL NORM RATIO 0.9 (0.9-1.1)
--- NOTE | 2022-09-04 10:10 | ED_ITS ---
HPI - General Adult General Chief complaint: General Medical Stated complaint: Rectal bleed Time Seen by Provider: 09/04/22 09:35 Source: patient and family Mode of arrival: ambulatory History of Present Illness HPI narrative: 82-year-old female with known history ovarian CA, patient states that she is followed by Dr. Vieyra and is currently undergoing chemotherapy. She states that originally she had ?spots on her liver and lungs which have resolved?. However, most recently patient states that a PET scan noted that there is increased cancer in the pelvis. Patient describes some bleeding which she thought may be coming from the vagina but was evaluated by Dr. Vieyra yesterday and on speculum exam stated that there was no source noted at that location. Patient states that her last colonoscopy was at least 6 years ago and what has her the most concern today is that she awoke with blood ?everywhere, saturating her sheets?. She was then instructed by Dr Vieyra to come in for further evaluation by the emergency room. Related Data Home Medications Medication Instructions Recorded Confirmed mirtazapine 30 mg tablet 30 mg PO BEDTIME 04/07/22 09/04/22 ascorbic acid (vitamin C) 1,000 mg 1,000 mg PO DAILY 09/04/22 09/04/22 tablet clonazepam 1 mg tablet 1 mg PO BEDTIME 09/04/22 09/04/22 clonidine HCl 0.3 mg tablet 0.3 mg PO BEDTIME 09/04/22 09/04/22 nitrofurantoin macrocrystal 50 mg 50 mg PO DAILY 09/04/22 09/04/22 capsule Previous Rx's Medication Instructions Recorded doxepin 10 mg capsule 10 mg PO BEDTIME #90 caps 09/01/22 Allergies Allergy/AdvReac Type Severity Reaction Status Date / Time Sulfa (Sulfonamide Allergy Mild RASH Verified 09/04/22 09:04 Antibiotics) [Sulfa (Sulfonamides)] Review of Systems Review of Systems: Pertinent positives and negatives as stated in HPI [facility] Past Medical History Source: nursing notes reviewed Medical History Essential hypertension Generalized anxiety disorder Ovarian cancer Social History Social History Advance Directives: Yes Advance Directives on File: No Physical Exam ED Vital Signs: Vital Signs - 24 hr 09/04/22 09:00 09/04/22 12:23 Temperature 97.8 F 97.4 F Pulse Rate 108 H 90 Respiratory Rate 18 18 Blood Pressure 165/130 H 171/100 H Pulse Oximetry 96 98 Oxygen Delivery Method Room Air Room Air BMI result Body Mass Index 25.9 VITAL SIGNS: Reviewed. GENERAL: Well developed, well nourished, in no acute distress. HEAD: Normocephalic/atraumatic EYES: PERRLA, EOMI LUNGS: Normal breath sounds. No adventitious sounds or accessory muscle use. SpO2<96> CARDIOVASCULAR: Regular rate and rhythm without noted murmurs ABDOMEN: Soft, non-tender, non-distended with bowel sounds. RECTAL: No obvious inflamed external hemorrhoids, brick red stool without internal hemorrhoids noted, no elinor red blood. MUSCULOSKELETAL: No tenderness, deformities, or effusions noted on gross inspe ction. EXTREMITIES: No cyanosis, clubbing or edema. SKIN: Inspection of the skin reveals no rashes NEUROLOGIC: Alert and oriented x 4. Strength and sensation to light touch were grossly intact x 4. Medications Administered Discontinued Medications Generic Name Dose Route Start Last Admin Trade Name Freq PRN Reason Stop Dose Admin Iohexol 80 ml 09/04/22 11:04 09/04/22 11:05 Iohexol 350 Mg/Ml 100 Ml Infus..Btl IV 09/04/22 11:05 80 ml ONCE ONE Administration Medical Decision Making Medical Decision Making MDM Narrative: 82-year-old female with known ovarian cancer and concerning sites located on the most recent PET scan: 4. Moderately intense FDG avidity in the region of the rectum/anal canal with SUV max of 5.5, previously 3.5, may represent physiologic changes however direct visualization/clinical correlation as appropriate may be considered for further clarification. 5. Linear bilaterally symmetric mild FDG avidity at the sacrum at the level of S3, may represent insufficiency fracture or posttraumatic changes, new since prior study. Targeted MRI of the sacrum with and without intravenous contrast may be considered for further clarification, as clinically appropriate. This raises suspicion for the possible source and will proceed with CT scan of abdomen/pelvis with GI protocol. Reviewed all investigations my interpretation is patient has a lower GI bleed with stable vital signs, no evidence on CT scan of brisk bleeding. I discussed the case with inpatient hospitalist who accepts admission. Differential Diagnosis Please see the discussion above Admission/Observation Inpatient admission is being considered due to reports of rectal bleeding. Will re-evaluate after all investigations have been completed. Consult Healthcare Provider [id number]: I discussed case with the inpatient hospitalist who accepts admission. Lab Data Please see the discussion above 09/04/22 09:30 09/04/22 09:30 Labs: Lab Results 09/04/22 09/04/22 09/04/22 Range/Units 09:30 09:30 09:46 WBC 10.9 H (4.8-10.8) X10*3/uL RBC 4.81 (4.20-5.50) X10*6/uL Hgb 14.4 (12.0-16.0) g/dl Hct 44.6 (37.0-47.0) % MCV 92.7 (80.0-98.0) fL MCH 29.9 (27.0-33.0) pg MCHC 32.3 (31.0-35.0) g/dl RDW 13.1 (11.0-16.0) % Plt Count 222 D (160-400) X10*3/uL MPV 9.0 L (9.4-12.3) fL Immature Gran % (Auto) 0.4 (0.0-0.4) % Neut % (Auto) 73.0 (45-73) % Lymph % (Auto) 13.9 L (20-40) % [place] % (Auto) 11.2 H (2-11) % Eos % (Auto) 1.2 (0-4) % Baso % (Auto) 0.3 (0-2) % Lymph # (Auto) 1.5 (1.2-4.9) X10*3/uL [place] # (Auto) 1.2 (0.1-1.2) X10*3/uL Eos # (Auto) 0.1 (0.0-0.4) X10*3/uL Baso # (Auto) 0.0 (0.0-0.2) X10*3/uL Abs Immat Gran (auto) 0.04 H (0.00-0.03) X10*3/uL Absolute Neuts (auto) 8.0 (2.0-8.3) x10*3/uL Absolute Nucleated RBC 0.000 (0.0-0.012) X10*3/uL Nucleated RBC % (auto) 0.0 (0.0-0.2) /100WBC PT 10.0 (10.0-13.1) SEC INR 0.9 (0.9-1.1) Sodium 142 (135-145) mmol/L Potassium 4.0 (3.3-5.1) mmol/L Chloride 108 (96-108) mmol/L Carbon Dioxide 25 (22-29) mmol/L Anion Gap 13 (12-20) BUN 17 H (9-16) mg/dL Creatinine 0.93 (0.5-1.4) mg/dL Estim Creat Clear Calc 37.1 Estimated GFR 58 Random Glucose 94 (60-115) mg/dL Calcium 9.1 (8.4-10.2) mg/dL Total Bilirubin 0.5 (0.0-1.0) mg/dL AST 19 (5-31) U/L ALT 8 (0-31) U/L Alkaline Phosphatase 59 (39-117) U/L Total Protein 6.3 L (6.5-8.0) g/dL Albumin 3.9 (3.5-5.0) g/dL Stool Occult Blood (NEGATIVE) COVID-19 ([facility]) (Negative) COVID-19 Clin Com Blood Type Antibody Screen 09/04/22 09/04/22 09/04/22 Range/Units 09:56 12:27 12:41 WBC (4.8-10.8) X10*3/uL RBC (4.20-5.50) X10*6/uL Hgb (12.0-16.0) g/dl Hct (37.0-47.0) % MCV (80.0-98.0) fL MCH (27.0-33.0) pg MCHC (31.0-35.0) g/dl RDW (11.0-16.0) % Plt Count (160-400) X10*3/uL MPV (9.4-12.3) fL Immature Gran % (Auto) (0.0-0.4) % Neut % (Auto) (45-73) % Lymph % (Auto) (20-40) % [place] % (Auto) (2-11) % Eos % (Auto) (0-4) % Baso % (Auto) (0-2) % Lymph # (Auto) (1.2-4.9) X10*3/uL [place] # (Auto) (0.1-1.2) X10*3/uL Eos # (Auto) (0.0-0.4) X10*3/uL Baso # (Auto) (0.0-0.2) X10*3/uL Abs Immat Gran (auto) (0.00-0.03) X10*3/uL Absolute Neuts (auto) (2.0-8.3) x10*3/uL Absolute Nucleated RBC (0.0-0.012) X10*3/uL Nucleated RBC % (auto) (0.0-0.2) /100WBC PT (10.0-13.1) SEC INR (0.9-1.1) Sodium (135-145) mmol/L Potassium (3.3-5.1) mmol/L Chloride (96-108) mmol/L Carbon Dioxide (22-29) mmol/L Anion Gap (12-20) BUN (9-16) mg/dL Creatinine (0.5-1.4) mg/dL Estim Creat Clear Calc Estimated GFR Random Glucose (60-115) mg/dL Calcium (8.4-10.2) mg/dL Total Bilirubin (0.0-1.0) mg/dL AST (5-31) U/L ALT (0-31) U/L Alkaline Phosphatase (39-117) U/L Total Protein (6.5-8.0) g/dL Albumin (3.5-5.0) g/dL Stool Occult Blood POSITIVE (NEGATIVE) COVID-19 ([facility]) Negative (Negative) COVID-19 Clin Com See Note Blood Type O Positive Antibody Screen NEGATIVE Radiology Impression Radiologist Impression: My interpretation is in agreement with radiology's impression of the imaging studies. External Record Review External record reviewed: Outpatient record and Prior outpatient labs Chronic Conditions Patient?s care impacted by: Hypertension Critical Care Time Critical Care Time Critical Care Time: Yes Total Critical Care Time: 30 Attestation: I personally attest to this time spent taking care of the patient. Discharge Plan Discharge Clinical Impression: GI bleed, Ovarian cancer, Essential hypertension Patient Disposition: Admitted As Inpatient Prescriptions: No Action doxepin 10 mg capsule 10 mg PO BEDTIME Qty: 90 1RF nitrofurantoin macrocrystal 50 mg capsule 50 mg PO DAILY ascorbic acid (vitamin C) 1,000 mg Tablet 1,000 mg PO DAILY clonidine HCl 0.3 mg tablet 0.3 mg PO BEDTIME clonazepam 1 mg tablet 1 mg PO BEDTIME Rx Instructions: administer 30 minutes before bedtime mirtazapine 30 mg tablet 30 mg PO BEDTIME
[2022-09-04] MEDS: iohexoL 350 MG/ML 100 ML INFUS..BTL 80 ML IV (11:05)
[2022-09-04 12:23] VITALS: BP 171/100; PULSE 90; RESP 18; TEMP 36.3; O2SAT 98
--- NOTE | 2022-09-04 12:57 | PHA.MEDREC ---
Pharmacy Consult ? Medication Reconciliation Pharmacy has completed the medication reconciliation. Pt states she often forgets her estradiol cream, states she uses it maybe once every 2 weeks when she remembers
[2022-09-04 13:05] LABS: COVID-19 Test Negative (Negative); IDNOW Serial# BCCEAD1C
[2022-09-04 14:59] VITALS: BP 174/81; PULSE 91; RESP 16; TEMP 37; O2SAT 97
--- NOTE | 2022-09-04 16:29 | PM.IMHP ---
History of Present Illness Date of Service: 09/04/22 Attending physician on admission: Ba Hill Chief Complaint: rectal bleeding This is an 82-year-old female with history of ovarian cancer who presents to the emergency department with complaints of rectal bleeding. Patient recently had outpatient PET scan which showed increased activity in the region of the rectum/anal canal, direct visualization recommended. She was seen for follow-up appointment with PCP/oncologist and had pelvic/rectal exam in the office. At that time no masses or hemorrhoids were felt on exam. She returned home without incident. That evening she had small amount of rectal bleeding. When she woke up this morning she states that her sheets and matches pad were saturated in blood and she has had episodes of bright red blood per rectum. She cannot recall when her last colonoscopy was, she thinks greater than 10 years ago. She has no associated abdominal pain, nausea, vomiting, diarrhea. In the emergency department she had a CT scan of the abdomen pelvis with and without contrast which showed diverticulosis as well as complex mass in the right adnexal region which probably communicates with the vaginal fornix. H/H was within normal limits be given rectal bleeding the decision was made to admit her overnight for observation. Review of Systems Review of Systems: Yes all other systems are reviewed and are negative Constitutional: Constitutional: Denies chills and Denies fever(s) ENT: Denies dizziness Cardiovascular: Cardiovascular: Denies chest pain and Denies palpitations Respiratory: Respiratory: Denies cough and Denies pain with cough Gastrointestinal: Gastrointestinal: Denies abdominal pain, Denies nausea and Denies vomiting Neurologic: Denies dizziness Endocrine: Endocrine: Denies palpitations [facility] Medical History Essential hypertension Generalized anxiety disorder Ovarian cancer Functional capacity: independent ambulation Family History (Updated 09/04/22 @ 16:41 by RICHY Sandoval) Brother Colon cancer Sister Colon cancer Surgical History (Updated 09/04/22 @ 16:42 by RICHY Sandoval) Status post total abdominal hysterectomy Social History (Updated 09/04/22 @ 16:43 by RICHY Sandoval) Patient Tobacco Use Status: Former Tobacco user Quit Date: 38 years ago Tobacco use type: Cigarette Cigarette Packs Per Day: 2 Cigarettes Per Day: 40.0 Meds Allergies Allergy/AdvReac Type Severity Reaction Status Date / Time Sulfa (Sulfonamide Allergy Mild RASH Verified 09/04/22 09:04 Antibiotics) [Sulfa (Sulfonamides)] Active Medications: Current Medications Pharmacy Consult (Consult Rx Perform Med Rec) 1 each MISCELLANE ONCE PRN PRN Reason: Consult order Sodium Chloride (0.9 % Sodium Chloride Flush 3 Ml Syringe) 3 ml [facility]FLUSH [facility] Home Medications Medication Instructions Recorded Confirmed Last Taken Type mirtazapine 30 mg tablet 30 mg PO BEDTIME 04/07/22 09/04/22 09/03/22 History ascorbic acid (vitamin C) 1,000 mg 1,000 mg PO DAILY 09/04/22 09/04/22 09/03/22 History tablet clonazepam 1 mg tablet 1 mg PO BEDTIME 09/04/22 09/04/22 09/03/22 History clonidine HCl 0.3 mg tablet 0.3 mg PO BEDTIME 09/04/22 09/04/22 09/03/22 History nitrofurantoin macrocrystal 50 mg 50 mg PO DAILY 09/04/22 09/04/22 09/03/22 History capsule Physical Exam Vital Signs and Narrative: Vital Signs: Last Vital Signs Temp 98.6 F 09/04/22 14:59 Pulse 91 09/04/22 14:59 Resp 16 09/04/22 14:59 BP 174/81 H 09/04/22 14:59 Pulse Ox 97 09/04/22 14:59 O2 Del Method Room Air 09/04/22 14:59 BMI result Body Mass Index 25.9 Const: General: cooperative, comfortable, alert and awake Nutritional Appearance: average body habitus Orientation/consciousness: patient oriented x3 Resp: Effort & Inspection: normal respiratory effort and no respiratory distress Cardio: Rate: regular rate Heart sounds: S1 normal heart sound present and S2 normal heart sound present GI: Inspection: No distended Palpation (GI): Soft to palpation and nontender Neuro: General: patient oriented x3 and CN's II-XI intact bilaterally Extrem: General: Yes no pedal edema Results Labs 09/04/22 09:30 09/04/22 09:30 Labs: Laboratory Results - last 24 hr 09/04/22 09/04/22 09/04/22 09:30 09:30 09:46 MCV 92.7 MCH 29.9 MCHC 32.3 RDW 13.1 Plt Count 222 D MPV 9.0 L Immature Gran % (Auto) 0.4 Neut % (Auto) 73.0 Lymph % (Auto) 13.9 L [place] % (Auto) 11.2 H Eos % (Auto) 1.2 Baso % (Auto) 0.3 Lymph # (Auto) 1.5 [place] # (Auto) 1.2 Eos # (Auto) 0.1 Baso # (Auto) 0.0 Abs Immat Gran (auto) 0.04 H Absolute Neuts (auto) 8.0 Absolute Nucleated RBC 0.000 Nucleated RBC % (auto) 0.0 PT 10.0 INR 0.9 Anion Gap 13 Estim Creat Clear Calc 37.1 Estimated GFR 58 Random Glucose 94 Calcium 9.1 Total Bilirubin 0.5 AST 19 ALT 8 Alkaline Phosphatase 59 Total Protein 6.3 L Albumin 3.9 Stool Occult Blood COVID-19 ([facility]) COVID-19 Clin Com Blood Type Antibody Screen 09/04/22 09/04/22 09/04/22 09:56 12:27 12:41 MCV MCH MCHC RDW Plt Count MPV Immature Gran % (Auto) Neut % (Auto) Lymph % (Auto) [place] % (Auto) Eos % (Auto) Baso % (Auto) Lymph # (Auto) [place] # (Auto) Eos # (Auto) Baso # (Auto) Abs Immat Gran (auto) Absolute Neuts (auto) Absolute Nucleated RBC Nucleated RBC % (auto) PT INR Anion Gap Estim Creat Clear Calc Estimated GFR Random Glucose Calcium Total Bilirubin AST ALT Alkaline Phosphatase Total Protein Albumin Stool Occult Blood POSITIVE COVID-19 ([facility] C) Negative COVID-19 Clin Com See Note Blood Type O Positive Antibody Screen NEGATIVE Imaging Radiologist's Impressions: Impressions Abdomen/Pelvis CT 09/04/22 10:55 IMPRESSION: * No evidence of an active gastrointestinal bleed. * Colonic diverticulosis without evidence of acute diverticulitis. * A heterogeneously hypodense focus in the liver could represent an old treated metastasis. This lesion is smaller compared to 01/18/2020 (and is significantly smaller compared to 07/15/2017). No new liver lesion. * There are old stable cystic foci of the posterior spleen. No new splenic lesion. * There is recent stability of the complex mass in the right adnexal region which probably communicates with the vaginal fornix. No new pelvic abnormalities. Assessment and Plan (1) GI bleed: Status: Acute (2) Ovarian cancer: Status: Acute Plan This is an 82-year-old female with history of ovarian cancer status post chemotherapy, hypertension who presents to the emergency department with rectal bleeding Rectal bleeding likely lower GI source CT scan showing diverticulosis. 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 Meier currently not receiving treatment Hypertension Continue clonidine Anxiety Continue clonazepam recurrent UTI continue nitrofurantoin DVT prophylaxis-mechanical devices. Avoid anticoagulation due to GI bleeding Code status-DNR/DNI HCP-Leanne Torres, daughter Attending - Dr. Hill Time Spent With Patient Time: Total time managing care of this patient today ____ minutes. Quality Stroke Does the patient have a stroke diagnosis?: No VTE Prior VTE?: No VTE Risk Level:: Medical - moderate - high VTE Device Contraindication: N/A - Device Ordered VTE Drug Contraindication: Treatment Not Indicated
[2022-09-04] MEDS: 0.9 % Sodium Chloride Flush 3 ML SYRINGE IVFLUSH (16:41)
[2022-09-04 16:47] VITALS: BP 168/67; PULSE 92; RESP 18; TEMP 37; O2SAT 95
[2022-09-04 17:20] LABS: Hematocrit 48.9 % (37.0-47.0); Hemoglobin 15.7 g/dl (12.0-16.0)
--- NOTE | 2022-09-04 18:38 | P.EN_ITS ---
Event Note Date of Service: 09/04/22 Event Note: This patient is seen and examined with APC. Patient was admitted for rectal bleeding,recently had outpatient PET scan which showed increased activity in the region of the rectum/anal canal-possible need of direct visualization. Patient seen by PCP today and had rectal exam there-no hemorrhoids noted, and sent for evaluation in ED for further management. Lab imaging. H&H stable, BMP seems fine, ct abd noted -please see h&p note. Physical exam and assessment and plan coordinated in APCs note, Agree with the plan in addition: Possible lower GI bleed: Monitor H&H closely, GI evaluation. Adnexal mass with question of vaginal fistula: Contact Center Assistant evaluation Above management discussed with the patient and her family in detail length Time Spent With Patient Time: Total time managing care of this patient today ____ minutes.
[2022-09-04] MEDS: clonazePAM 1 MG TABLET PO (19:24)
[2022-09-04] MEDS: Doxepin HCl 10 MG CAPSULE PO (19:24)
[2022-09-04] MEDS: cloNIDine HCL 0.1 MG TABLET 0.3 MG PO (19:24)
[2022-09-04] MEDS: Mirtazapine 30 MG TABLET PO (19:25)
[2022-09-04 19:37] VITALS: BP 184/96; PULSE 84; RESP 18; TEMP 36.5; O2SAT 94
[2022-09-05] MEDS: 0.9 % Sodium Chloride Flush 3 ML SYRINGE IVFLUSH ×2 (00:15→09:06)
[2022-09-05 03:15] VITALS: BP 145/82; PULSE 80; RESP 18; TEMP 36.3; O2SAT 94
[2022-09-05 07:43] VITALS: BP 143/89; PULSE 86; RESP 16; TEMP 36.5; O2SAT 95
[2022-09-05] MEDS: nitrofurantoin macrocrystaL 50 MG CAPSULE PO (09:04)
[2022-09-05 09:14] LABS: Hemoglobin 14.6 g/dl (12.0-16.0); Mean Corpuscular HGB Conc 31.7 g/dl (31.0-35.0); Mean Corpuscular Hemoglobin 29.6 pg (27.0-33.0); Mean Corpuscular Volume 93.3 fL (80.0-98.0); Mean Platelet Volume 9.6 fL (9.4-12.3); Platelet Count 235 X10*3/uL (160-400); Red Blood Count 4.93 X10*6/uL (4.20-5.50); Red Cell Distribution Width 13.2 % (11.0-16.0); White Blood Count 7.5 X10*3/uL (4.8-10.8)
--- NOTE | 2022-09-05 10:44 | MHC.CM.PN ---
PATIENT LIVES ALONE. HER HCP/DAUGHTER (ON FILE AND VERIFIED) LIVES NEARBY AND IS INVOLVED IN PATIENT'S DAILY LIFE COVID VAX AND BOOSTED. NO DME OR [facility] SERVICES. PLAN IS FOR FLEX SIG TODAY AND RIG MECHANIC EXAM PATIENT MAY BE ABLE TO DC HOME LATER TODAY DAUGHTER 9IN ROOM) WILL PROVIDE TRANSPORT. GOEL 09/05 IN CHART
--- NOTE | 2022-09-05 10:46 | PM.GYNCN ---
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 Patient recently had outpatient PET scan which showed increased activity in the region of the rectum/anal canal, direct visualization recommended.? She was seen for follow-up appointment with PCP/oncologist and had pelvic/rectal exam in the office.? At that time no masses or hemorrhoids were felt on exam.? Another episode of bright red rectal bleeding had occurred afterwards.? The patient gives no history of vaginal bleeding or passage of stools per vagina, no abdominal pain, nausea, vomiting, diarrhea.? In the emergency department she had a CT scan of the abdomen pelvis with and without contrast which showed diverticulosis as well as complex mass in the right adnexal region which probably communicates with the vaginal fornix.? H/H was within normal limits be given rectal bleeding, the patient was admitted overnight for observation. 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 The patient underwent chemotherapy afterwards cc:: CC: RICHY Sandoval OB [facility] Past Medical History Medical History Essential hypertension Generalized anxiety disorder Ovarian cancer Functional capacity: independent ambulation Family History Family History Brother Colon cancer Sister Colon cancer Surgical History Surgical History Status post total abdominal hysterectomy Social History Social History Patient Tobacco Use Status: Former Tobacco user Quit Date: 38 years ago Tobacco use type: Cigarette Cigarette Packs Per Day: 2 Cigarettes Per Day: 40.0 Smoked in Last 30 Days: No Use of substances other than those prescribed or required for medical reasons: No Currently Displaying Signs/Symptoms of Drug Intoxication Withdrawal: No Advance Directives: Yes Advance Directives on File: No service: No Current occupational status: retired Meds Allergies Allergy/AdvReac Type Severity Reaction Status Date / Time Sulfa (Sulfonamide Allergy Mild RASH Verified 09/04/22 09:04 Antibiotics) [Sulfa (Sulfonamides)] Active Medications: Current Medications Clonazepam (Clonazepam 1 Mg Tablet) 1 mg PO BEDTIME [facility] Last Admin: 09/04/22 19:24 Dose: 1 mg Clonidine HCl (Clonidine Hcl 0.1 Mg Tablet) 0.3 mg PO BEDTIME [facility]; Protocol Last Admin: 09/04/22 19:24 Dose: 0.3 mg Doxepin HCl (Doxepin Hcl 10 Mg Capsule) 10 mg PO BEDTIME [facility] Last Admin: 09/04/22 19:24 Dose: 10 mg Mirtazapine (Mirtazapine 30 Mg Tablet) 30 mg PO BEDTIME [facility] Last Admin: 09/04/22 19:25 Dose: 30 mg Nitrofurantoin Macrocrystals (Nitrofurantoin Macrocrystal 50 Mg Capsule) 50 mg PO DAILY [facility] Last Admin: 09/05/22 09:04 Dose: 50 mg Pharmacy Consult (Consult Rx Perform Med Rec) 1 each MISCELLANE ONCE PRN PRN Reason: Consult order Sodium Chloride (0.9 % Sodium Chloride Flush 3 Ml Syringe) 3 ml IVFLUSH QSHIFT [facility] Last Admin: 09/05/22 09:06 Dose: 3 ml Home Medications Medication Instructions Recorded Confirmed Last Taken Type mirtazapine 30 mg tablet 30 mg PO BEDTIME 04/07/22 09/04/22 09/03/22 History ascorbic acid (vitamin C) 1,000 mg 1,000 mg PO DAILY 09/04/22 09/04/22 09/03/22 History tablet clonazepam 1 mg tablet 1 mg PO BEDTIME 09/04/22 09/04/22 09/03/22 History clonidine HCl 0.3 mg tablet 0.3 mg PO BEDTIME 09/04/22 09/04/22 09/03/22 History nitrofurantoin macrocrystal 50 mg 50 mg PO DAILY 09/04/22 09/04/22 09/03/22 History capsule POWERHOUSE ATTENDANT Physical Exam Vitals Vital signs: Temp Pulse Resp BP Pulse Ox O2 Del Method 97.7 F 86 16 143/89 H 95 Room Air 09/05/22 07:43 09/05/22 07:43 09/05/22 07:43 09/05/22 07:43 09/05/22 07:43 09/05/22 07:43 BMI result Body Mass Index 25.9 Abdomen Auscultation/Inspection/Palpation: Normal bowel sounds, Soft, Non-distended, Tenderness and Guarding Female Genitalia (Pelvic) Bladder/Urethra: Normal meatus Vulva: No lesions Vagina: Nontender, No erythema and No lesions Cervix: Cervix Surgically Absent Uterus: Uterus surgically absent Adnexa/Parametria: Adnexal Mass: Right Additional Comments: No blood or stool per vagina POWERHOUSE ATTENDANT - Results Labs 09/05/22 08:09 09/04/22 09:30 Labs: Short CBC 09/04/22 09/05/22 Range/Units 16:55 08:09 WBC 7.5 (4.8-10.8) X10*3/uL Hgb 15.7 14.6 (12.0-16.0) g/dl Hct 48.9 H 46.0 (37.0-47.0) % Plt Count 235 (160-400) X10*3/uL Antibody Screen Antibody Screen NEGATIVE 09/04/22 12:27 Assessment and Plan (1) Pelvic mass: Status: Acute With history of ovarian cancer in 02 status post chemotherapy . I Recommend referral to grocery carrier Oncology at [facility] to evaluate the possibility of surgical excision of the pelvic mass, recurrent from previous ovarian cancer (2) Rectal bleeding: Status: Acute Discussed with the patient the finding on pelvic exam , showing no evidence of blood or stool per vagina, however a fistula cannot be ruled out completely from the findings on this exam. Time Spent With Patient Time: Total time managing care of this patient today ____ minutes.
[2022-09-05 11:49] VITALS: BP 184/101; PULSE 78; RESP 16; TEMP 36.6; O2SAT 96
--- NOTE | 2022-09-05 12:00 | P.CNGI_ITS ---
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 Patient states that she had a pelvic exam on Thursday which was unremarkable by her report. Next day, she woke up in the morning to find her bedsheets soaked with blood. Does not report any abdominal pain, nausea, vomiting, rectal discomfort. Does not report any chest pain, shortness of breath, lightheadedness. Has never had this happen before. Last colonoscopy was in 2016 (Dr. Medina) good prep. x2 polypectomy. Path: Tubular adenomas. Family history is pertinent for colon cancer in sister at the age of 47. Of note she had an outpatient PET scan done on 08/26 that showed question of FDG avid region in the anorectum. CT abdomen and pelvis done upon admission for GI bleeding showed diverticulosis, without any evidence of active bleeding. No rectal masses or perirectal fluid collection was noted on the CT scan. 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 Currently the time of evaluation, reports feeling at her baseline and that has not had any further bleeding since Thursday. Saw scant blood on wiping yesterday morning, but she thinks that this was likely just some old blood. Hemoglobin has remained unchanged from her baseline. Chem 7 normal. Review of Systems Review of Systems: Yes all other systems are reviewed and are negative PMF Past Medical History Medical History (Updated 09/05/22 @ 12:00 by Dung Munoz MD) Essential hypertension Generalized anxiety disorder Ovarian cancer Functional capacity: independent ambulation Family History Family History (Updated 09/04/22 @ 16:41 by RICHY Sandoval) Brother Colon cancer Sister Colon cancer Surgical History Surgical History (Updated 09/05/22 @ 11:55 by Dung Munoz MD) Status post total abdominal hysterectomy Social History Social History (Updated 09/04/22 @ 16:43 by RICHY Sandoval) Patient Tobacco Use Status: Former Tobacco user Quit Date: 38 years ago Tobacco use type: Cigarette Cigarette Packs Per Day: 2 Cigarettes Per Day: 40.0 Smoked in Last 30 Days: No Use of substances other than those prescribed or required for medical reasons: No Currently Displaying Signs/Symptoms of Drug Intoxication Withdrawal: No Advance Directives: Yes Advance Directives on File: No service: No Current occupational status: retired Meds Allergies Allergy/AdvReac Type Severity Reaction Status Date / Time Sulfa (Sulfonamide Allergy Mild RASH Verified 09/04/22 09:04 Antibiotics) [Sulfa (Sulfonamides)] Active Medications: Current Medications Clonazepam (Clonazepam 1 Mg Tablet) 1 mg PO BEDTIME [facility] Last Admin: 09/04/22 19:24 Dose: 1 mg Clonidine HCl (Clonidine Hcl 0.1 Mg Tablet) 0.3 mg PO BEDTIME [facility]; Protocol Last Admin: 09/04/22 19:24 Dose: 0.3 mg Doxepin HCl (Doxepin Hcl 10 Mg Capsule) 10 mg PO BEDTIME [facility] Last Admin: 09/04/22 19:24 Dose: 10 mg Mirtazapine (Mirtazapine 30 Mg Tablet) 30 mg PO BEDTIME [facility] Last Admin: 09/04/22 19:25 Dose: 30 mg Nitrofurantoin Macrocrystals (Nitrofurantoin Macrocrystal 50 Mg Capsule) 50 mg PO DAILY [facility] Last Admin: 09/05/22 09:04 Dose: 50 mg Pharmacy Consult (Consult Rx Perform Med Rec) 1 each MISCELLANE ONCE PRN PRN Reason: Consult order Sodium Chloride (0.9 % Sodium Chloride Flush 3 Ml Syringe) 3 ml IVFLUSH QSHIFT [facility] Last Admin: 09/05/22 09:06 Dose: 3 ml Home Medications Medication Instructions Recorded Confirmed Last Taken Type mirtazapine 30 mg tablet 30 mg PO BEDTIME 04/07/22 09/04/22 09/03/22 History ascorbic acid (vitamin C) 1,000 mg 1,000 mg PO DAILY 09/04/22 09/04/22 09/03/22 History tablet clonazepam 1 mg tablet 1 mg PO BEDTIME 09/04/22 09/04/22 09/03/22 History clonidine HCl 0.3 mg tablet 0.3 mg PO BEDTIME 09/04/22 09/04/22 09/03/22 History nitrofurantoin macrocrystal 50 mg 50 mg PO DAILY 09/04/22 09/04/22 09/03/22 History capsule Physical Exam Vital Signs: Vital Signs: Last Vital Signs Temp 97.7 F 09/05/22 07:43 Pulse 86 09/05/22 07:43 Resp 16 09/05/22 07:43 BP 143/89 H 09/05/22 07:43 Pulse Ox 95 09/05/22 07:43 O2 Del Method Room Air 09/05/22 07:43 BMI result Body Mass Index 25.9 Gen appear: No acute distress, well nourished HEENT: no icterus, no cervical lymphadenopathy Chest: No overt resp distress CVS: S1/S2, regular Abd: soft, nontender, nondistended Psych: Stable affect, answering questions appropriately Neuro: A/Ox3 noted to move all extremities spontaneously Ext: no peripheral edema Results Labs 09/05/22 08:09 09/04/22 09:30 Labs: Short CBC 09/04/22 09/05/22 Range/Units 16:55 08:09 WBC 7.5 (4.8-10.8) X10*3/uL Hgb 15.7 14.6 (12.0-16.0) g/dl Hct 48.9 H 46.0 (37.0-47.0) % Plt Count 235 (160-400) X10*3/uL Assessment and Plan (1) Rectal bleeding: Status: Acute (2) Ovarian cancer: Status: Acute Plan Differentials for painless self-limiting episode of rectal bleeding include diverticular bleeding (typically assoc with much drastic blood loss and drop in H/H) versus ?anorectal masses noted on PET scan (albeit not noted on the contrasted CT) vs hemorrhoidal bleeding. Results from colonoscopy 2016 reviewed. We will plan for a flexible sigmoidoscopy to eval rectal bleeding today. As there is concern for possibly bleeding anorectal mass, the procedure will be done without any enemas, to avoid irritation of that area. Patient is already NPO in anticipation of this procedure. Further management will depend on the findings. Patient has also been seen by mule operator, full consult note pending, however patient tells me she was recommended to see mule operator Onc for question of repeat surgery. Thank you for allowing me to participate in her care. Please do not hesitate to reach out for any questions or concerns. Time Spent With Patient Time: Total time managing care of this patient today ____ minutes. Procedures Date of Service Date of Service: 09/05/22
--- NOTE | 2022-09-05 12:32 | P.CONAN_ITS ---
HPI - Anesthesia Eval Consult details Narrative: Rectal blled PMFSH Active Problems Active Problems: All Active Problems (Updated 09/05/22 @ 12:00 by Dung uMnoz MD) Rectal bleeding (Acute) Pelvic mass (Acute) GI bleed (Acute) Essential hypertension (Acute) Generalized anxiety disorder (Acute) Major depression in complete remission (Acute) Ovarian cancer (Acute) Past Medical History Medical History Essential hypertension Generalized anxiety disorder Ovarian cancer Functional capacity: independent ambulation Family History Family History Brother Colon cancer Sister Colon cancer Family history of problems with anesthesia: No Surgical History Surgical History Status post total abdominal hysterectomy History of Problems with Anesthesia: No Social History Social History Patient Tobacco Use Status: Former Tobacco user Quit Date: 38 years ago Tobacco use type: Cigarette Cigarette Packs Per Day: 2 Cigarettes Per Day: 40.0 Smoked in Last 30 Days: No Second Hand Smoke Exposure: No Use of substances other than those prescribed or required for medical reasons: No Currently Displaying Signs/Symptoms of Drug Intoxication Withdrawal: No Are you DNR?: Yes Advance Directives: No Advance Directives Information Provided: No (At Home) Advance Directives on File: No service: No Current occupational status: retired Meds Allergies Allergy/AdvReac Type Severity Reaction Status Date / Time Sulfa (Sulfonamide Allergy Mild RASH Verified 09/04/22 09:04 Antibiotics) [Sulfa (Sulfonamides)] Active Medications: Current Medications Clonazepam (Clonazepam 1 Mg Tablet) 1 mg PO BEDTIME [facility] Last Admin: 09/04/22 19:24 Dose: 1 mg Clonidine HCl (Clonidine Hcl 0.1 Mg Tablet) 0.3 mg PO BEDTIME [facility]; Protocol Last Admin: 09/04/22 19:24 Dose: 0.3 mg Doxepin HCl (Doxepin Hcl 10 Mg Capsule) 10 mg PO BEDTIME [facility] Last Admin: 09/04/22 19:24 Dose: 10 mg Mirtazapine (Mirtazapine 30 Mg Tablet) 30 mg PO BEDTIME [facility] Last Admin: 09/04/22 19:25 Dose: 30 mg Nitrofurantoin Macrocrystals (Nitrofurantoin Macrocrystal 50 Mg Capsule) 50 mg PO DAILY [facility] Last Admin: 09/05/22 09:04 Dose: 50 mg Pharmacy Consult (Consult Rx Perform Med Rec) 1 each MISCELLANE ONCE PRN PRN Reason: Consult order Sodium Chloride (0.9 % Sodium Chloride Flush 3 Ml Syringe) 3 ml IVFLUSH QSHIFT [facility] Last Admin: 09/05/22 09:06 Dose: 3 ml Home Medications Medication Instructions Recorded Confirmed Last Taken Type mirtazapine 30 mg tablet 30 mg PO BEDTIME 04/07/22 09/04/22 09/03/22 History ascorbic acid (vitamin C) 1,000 mg 1,000 mg PO DAILY 09/04/22 09/04/22 09/03/22 History tablet clonazepam 1 mg tablet 1 mg PO BEDTIME 09/04/22 09/04/22 09/03/22 History clonidine HCl 0.3 mg tablet 0.3 mg PO BEDTIME 09/04/22 09/04/22 09/03/22 History nitrofurantoin macrocrystal 50 mg 50 mg PO DAILY 09/04/22 09/04/22 09/03/22 History capsule Exam Exam Date and Time: September 05, 2022 1232 Height,Weight and Vital Signs: Height 5 ft Weight 60.146 kg Last Vital Signs Temp 97.9 F 09/05/22 11:49 Pulse 78 09/05/22 11:49 Resp 16 09/05/22 11:49 BP 184/101 H 09/05/22 11:49 Pulse Ox 96 09/05/22 11:49 O2 Del Method Room Air 09/05/22 11:49 Pertinent Lab Results Pertinent Lab Results: Laboratory Tests 09/04/22 09/04/22 09/04/22 09:30 09:30 09:46 WBC 10.9 H RBC 4.81 Hgb 14.4 Hct 44.6 MCV 92.7 MCH 29.9 MCHC 32.3 RDW 13.1 Plt Count 222 D MPV 9.0 L Immature Gran % (Auto) 0.4 Neut % (Auto) 73.0 Lymph % (Auto) 13.9 L [place] % (Auto) 11.2 H Eos % (Auto) 1.2 Baso % (Auto) 0.3 Lymph # (Auto) 1.5 [place] # (Auto) 1.2 Eos # (Auto) 0.1 Baso # (Auto) 0.0 Abs Immat Gran (auto) 0.04 H Absolute Neuts (auto) 8.0 Absolute Nucleated RBC 0.000 Nucleated RBC % (auto) 0.0 PT 10.0 INR 0.9 Sodium 142 Potassium 4.0 Chloride 108 Carbon Dioxide 25 Anion Gap 13 BUN 17 H Creatinine 0.93 Estim Creat Clear Calc 37.1 Estimated GFR 58 Random Glucose 94 Calcium 9.1 Total Bilirubin 0.5 AST 19 ALT 8 Alkaline Phosphatase 59 Total Protein 6.3 L Albumin 3.9 Stool Occult Blood COVID-19 ([facility]) COVID-19 Clin Com Blood Type Antibody Screen 09/04/22 09/04/22 09/04/22 09:56 12:27 12:41 WBC RBC Hgb Hct MCV MCH MCHC RDW Plt Count MPV Immature Gran % (Auto) Neut % (Auto) Lymph % (Auto) [place] % (Auto) Eos % (Auto) Baso % (Auto) Lymph # (Auto) [place] # (Auto) Eos # (Auto) Baso # (Auto) Abs Immat Gran (auto) Absolute Neuts (auto) Absolute Nucleated RBC Nucleated RBC % (auto) PT INR Sodium Potassium Chloride Carbon Dioxide Anion Gap BUN Creatinine Estim Creat Clear Calc Estimated GFR Random Glucose Calcium Total Bilirubin AST ALT Alkaline Phosphatase Total Protein Albumin Stool Occult Blood POSITIVE COVID-19 ([facility] C) Negative COVID-19 Clin Com See Note Blood Type O Positive Antibody Screen NEGATIVE 09/04/22 09/05/22 16:55 08:09 WBC 7.5 RBC 4.93 Hgb 15.7 14.6 Hct 48.9 H 46.0 MCV 93.3 MCH 29.6 MCHC 31.7 RDW 13.2 Plt Count 235 MPV 9.6 Immature Gran % (Auto) Neut % (Auto) Lymph % (Auto) [place] % (Auto) Eos % (Auto) Baso % (Auto) Lymph # (Auto) [place] # (Auto) Eos # (Auto) Baso # (Auto) Abs Immat Gran (auto) Absolute Neuts (auto) Absolute Nucleated RBC 0.000 Nucleated RBC % (auto) 0.0 PT INR Sodium Potassium Chloride Carbon Dioxide Anion Gap BUN Creatinine Estim Creat Clear Calc Estimated GFR Random Glucose Calcium Total Bilirubin AST ALT Alkaline Phosphatase Total Protein Albumin Stool Occult Blood COVID-19 ([facility] C) COVID-19 Clin Com Blood Type Antibody Screen Airway Mallampati Class: II TM Dist: >3cm Neck ROM: Limited Heart: rrr Lungs: cta Assessment and Plan Assessment Anesthesia Assessment: Anesthesia Plan Discussed and Chart Reviewed Final Anesthetic Review Family History of Problems with Anesthesia: No History of Problems with Anesthesia: No NPO: Yes ASA Class: II Final Preanesthetic Review: No Changes in Pt Med Stat, Meds/Allgs Chart Reviewed, Consent Obtained/Reviewed and Anes Risks/Benef Reviewed Patient Risk: Low Procedure Risk: Low Anesthetic Plan Anesthetic Plan: GA Disposition: Standard PACU
--- NOTE | 2022-09-05 13:58 | P.OP_ITS ---
Operative Note Operative Note Date of Service: 09/05/22 Narrative: Procedure: Flexible sigmoidoscopy Indication: Lower GI bleeding Endoscopist: Magali Merritt MD Anesthesia Provider: Dr Avilez Anesthesia type: MAC Instrument: Olympus [id number] Consent: Indication, risks vs benefits, and alternatives were discussed with the patient who gave written informed consent to proceed. EKG, pulse, pulse oximetry and blood pressure were monitored throughout the procedure. Please see anesthesia flowsheet. Procedure: The patient was brought to the procedure room and placed in the left lateral decubitus position. IV medications were administered by the anesthesia provider in attendance. A digital rectal exam was performed which was abnormal due to finding of hemorrhoids. The endoscope was then inserted through the anus and advanced through the colon to the splenic flexure at 70 cm. Mucosa was car efully examined under high definition white light as the instrument was slowly withdrawn in a retrograde panoramic fashion. Retroflexion was performed in rectum. The procedure was not difficult. There were no immediate obvious complications. Limitations: Poor prep. Findings: Mucosa: No active bleeding was noted. Blood streaked solid stool was noted in rectum up till distal transverse colon, stool in colon proximal to this was without any blood. Underlying mucosa was normal to splenic flexure. No abnormality was noted in anorectum to correlate with PET scan although there was a small area (15-20% of circumference) that could not be cleared up despite extensive flushing and suctioning and was obscured on retroflexion in the rectum. Protruding lesions: * Medium external and internal hemorrhoids without stigmata of recent bleeding. Impression: 1. Normal colon mucosa to extent visualised. 2. Internal and external hemorrhoids Recommendations: - No active bleeding. - Will set her up for outpatient colonoscopy for complete evaluation.
[2022-09-05 14:00] VITALS: BP 105/57; PULSE 77; RESP 16; TEMP 36.6; O2SAT 98
--- NOTE | 2022-09-05 14:14 | PM.DS ---
DS: Providers Provider Date of Service: 09/05/22 Date of admission: 09/04/22 15:11 Date of discharge: 09/05/22 Primary care physician: Gerber Meier MD Consults: 09/04/22 15:11 Consult to Gastroenterology Routine Consulting Provider: Magali Merritt Reason for consultation: rectal bleeding Has provider been notified: No Consult to Obstetrics / Gynecology Routine Consulting Provider: Dung Munoz Reason for consultation: ovaian ca ?vaginal fistula ?vaginal bleeding Has provider been notified: No Attending physician on discharge: Moise Keith Discharging clinician: Jodi Hastings DS: Diagnosis Discharge Diagnosis (1) Pelvic mass: Status: Acute (2) Rectal bleeding: Status: Acute DS: Summary Hospital Course Hospital Course: From H&P on day of admission This is an 82-year-old female with history of ovarian cancer who presents to the emergency department with complaints of rectal bleeding.? Patient recently had outpatient PET scan which showed increased activity in the region of the rectum/anal canal, direct visualization recommended.? She was seen for follow-up appointment with PCP/oncologist and had pelvic/rectal exam in the office.? At that time no masses or hemorrhoids were felt on exam.? She returned home without incident.? That evening she had small amount of rectal bleeding.? When she woke up this morning she states that her sheets and matches pad were saturated in blood and she has had episodes of bright red blood per rectum.? She cannot recall when her last colonoscopy was, she thinks greater than 10 years ago.? She has no associated abdominal pain, nausea, vomiting, diarrhea.? In the emergency department she had a CT scan of the abdomen pelvis with and without contrast which showed diverticulosis as well as complex mass in the right adnexal region which probably communicates with the vaginal fornix.? H/H was within normal limits be given rectal bleeding the decision was made to admit her overnight for observation. Rectal bleeding. CT scan showing diverticulosis. recent PET scan showing increased uptake in rectum/anus. Seen by GI consult pending, underwent flex sigmoidoscopy 09/04 - no active bleeding. Normal colon mucosa. Nothing in the anorectum to correlate with the PET findings. Recommend outpatient colonoscopy. H/H has remained stable and no further GI bleeding occurred. ?vaginal fistula. CT scan showing stable adnexal mass with question communication to vaginal fornix. She was seen by HEEL BUILDER MACHINE, Pelvic exam shows no stool or blood per vagina but a small fistula cannot be ruled out completely. Pelvic mass , recurrence for previous ovarian cancer, recommend referral to instruction librarian onc at [facility] for exploring the possibility of surgical excisio Time Spent with Patient Time attestation: Total time managing care of this patient today ____ minutes. Discharge coordination time: Greater than 30 minutes Quality: Safe Use of Opioids Does Pt have an Active Cancer Diagnosis on the Problem List?: No Quality: Stroke Does the patient have a stroke diagnosis?: No Physical Exam Vital Signs: Vital Signs: Last Vital Signs Temp 98 F 09/05/22 14:00 Pulse 77 09/05/22 14:00 Resp 16 09/05/22 14:00 BP 105/57 L 09/05/22 14:00 Pulse Ox 98 09/05/22 14:00 O2 Del Method Room Air 09/05/22 14:00 BMI result Body Mass Index 25.9 Const: General: cooperative, comfortable, alert and awake Nutritional Appearance: average body habitus Orientation/consciousness: patient oriented x3 Resp: Effort & Inspection: normal respiratory effort and no respiratory distress Cardio: Rate: regular rate Heart sounds: S1 normal heart sound present and S2 normal heart sound present GI: Inspection: No distended Palpation (GI): Soft to palpation and nontender Neuro: General: patient oriented x3 and CN's II-XI intact bilaterally Extrem: General: Yes no pedal edema DS: Data Data Completed and Pending Labs on day of discharge: Laboratory Results - last 24 hr 09/04/22 09/05/22 16:55 08:09 WBC 7.5 RBC 4.93 Hgb 15.7 14.6 Hct 48.9 H 46.0 MCV 93.3 MCH 29.6 MCHC 31.7 RDW 13.2 Plt Count 235 MPV 9.6 Absolute Nucleated RBC 0.000 Nucleated RBC % (auto) 0.0 Discharge Plan Discharge Patient Disposition: Home, Self-Care Discharge Diagnosis: rectal bleeding Referrals: Gerber Meier MD [Primary Care Provider] - 1 Week Discharge Medications: Continued doxepin 10 mg capsule 10 mg PO BEDTIME Qty: 90 1RF nitrofurantoin macrocrystal 50 mg capsule 50 mg PO DAILY ascorbic acid (vitamin C) 1,000 mg Tablet 1,000 mg PO DAILY clonidine HCl 0.3 mg tablet 0.3 mg PO BEDTIME clonazepam 1 mg tablet 1 mg PO BEDTIME Rx Instructions: administer 30 minutes before bedtime mirtazapine 30 mg tablet 30 mg PO BEDTIME Activity on Discharge: As tolerated Stand Alone Forms: Patient Portal Discharge page Care Plan Goals: see below Health Concerns: rectal bleeding ovarian mass elevated blood pressure Plan of Treatment: Flex sigmoidoscopy was done and there was no active bleeding, normal colon mucosa and nothing to correlate with PET findings - recommend outpatient colonoscopy Seen by HEEL BUILDER MACHINE Dr. Munoz no blood or stool in vagina, can't rule out small fistula, [place] [facility]ILDER MACHINE [place] [facility] [place] possibility of surgical excision of pelvic mass blood pressure elevated at times. recommend close outpatient follow up with PCP Assessment: see discharge summary
[2022-09-05 14:15] VITALS: BP 123/84; PULSE 68; RESP 15; TEMP 36.4; O2SAT 95
[2022-09-05 14:25] VITALS: BP 164/90; PULSE 73; RESP 17; TEMP 36.4; O2SAT 98
--- NOTE | 2022-09-05 14:51 | MHC.CM.PN ---
HOME - SELF CARE RN AWARE OF PLAN. DAUGHTER IS IN ROOM TO TRANSPORT
== END 2022-09-05 16:00 | disposition home or self-care (01) ==
LOC: HO.ED 13:51 → HO.EDOVER 15:17 → HO.S3 15:25
PROVIDERS: Internal Medicine; Admitting Provider Physician Assistant Medical; Emergency Provider Student in an Organized Health Care Education/Training Program; PCP Internal Medicine Medical Oncology; Visit Provider Physician Assistant Medical
PROC: 0DJD8ZZ Inspection of Lower Intestinal Tract, Via Natural or Artificial Opening Endoscopic (ICD-10-PCS; CPT 45330; principal; 2022-09-05 13:00)
DX: R19.00 Intra-abdominal and pelvic swelling, mass and lump, unspecified site (principal); K92.2 Gastrointestinal hemorrhage, unspecified; C56.9 Malignant neoplasm of unspecified ovary; K57.90 Diverticulosis of intestine, part unspecified, without perforation or abscess without bleeding; K92.1 Melena; K64.8 Other hemorrhoids; K64.4 Residual hemorrhoidal skin tags; Z20.822 Contact with and (suspected) exposure to COVID-19; I10 Essential (primary) hypertension; F41.1 Generalized anxiety disorder; Z87.891 Personal history of nicotine dependence; Z87.440 Personal history of urinary (tract) infections
CPT/HCPCS: 45330; 36415; 74178; 80053; 82272; 85014; 85018; 85025; 85027; 85610; 86850; 86900; 86901; 87635; 99221; 99285; Q9967

== ENCOUNTER → 2022-09-15 10:34 | Outpatient (BNVA) | payer MEDICARE, SELFPAY | PROVIDERS: PCP Internal Medicine Medical Oncology; Visit Provider Psychiatry & Neurology Psychiatry | DX: F41.1 Generalized anxiety disorder (principal); Z92.3 Personal history of irradiation; F32.A Depression, unspecified; G47.00 Insomnia, unspecified; F17.210 Nicotine dependence, cigarettes, uncomplicated | CPT/HCPCS: 90833; 99212 ==

== ENCOUNTER 2023-01-05 11:28 | Outpatient (AMB) | payer MEDICARE, SELFPAY ==
--- NOTE | 2023-01-05 11:13 | MHC.OFFVISPS ---
Intake Intake Visit Reasons: Depression Allergies Sulfa (Sulfonamide Antibiotics) [Sulfa (Sulfonamides)] Allergy (Mild, Verified 09/04/22 09:04) RASH Medication List - Last Reconciled 01/05/23 by Dami Eason MD ascorbic acid (vitamin C) 1,000 mg PO DAILY clonazepam 1 mg PO BEDTIME clonidine HCl 0.3 mg PO BEDTIME doxepin 10 mg PO BEDTIME estradiol 0.01%(0.1mg/gram) grams vaginal mirtazapine 30 mg PO BEDTIME nitrofurantoin macrocrystal 50 mg PO DAILY peg 3350-electrolytes 236-22.74-6.74 -5.86 gram (Golytely) 240 mL PO Q10M HPI- Psychiatric Chief Complaint: Depression HPI Narrative: Pt seen in f/u now at [facility] every 28 days gets [facility] [place] sees dr rajput no surgery or radiation no panic able generally to stay in her and now tired few days after chem some dec chris family quite supportive able to be social and engaged . The patient uses her confucianism brad to maintain herself she does understand that she is in the latter stages of ovarian cancer. It has grossly affected her liver metastatic to the pelvis and her colon . The patient is able to maintain her mood generally she does have a lot of anxiety when she goes to new appointments. She was advised by the oncologist nurse practitioner to increase doxepin to 3 at bedtime she was unable to tolerate this. We did discuss adding a clonazepam a 0.5 mg during the day if needed prior to medical appointments patient is not driving Past Psychiatric History: The patient has a long history of anxiety depression and insomnia. She has been stable for an extended period of time. She has also had chronic problems with insomnia. Patient was on Paxil in the past Mental Status Exam Mental Status Exam Narrative: Mental Status Exam Narrative: Normal gait Appearance: Casually dressed Behavior: Cooperative appropriate psychomotor: Within normal limits Speech: Normal volume and prosody Thought proccess logical and goal-directed Thought content: Future oriented appropriate concerns about her medical condition apprehensive Mood: Anxious apprehensive Affect: Appropriate to mood SI:denies HI:denies VH/AH:none Delusions: None Insight/judgment: Good insight and judgment patient does understand that she is coming perhaps toward the end of treatment for her cancer appears to be making peace with this Memory/cog: Intact Assessment and Plan Assessment & Plan (1) Generalized anxiety disorder: Status: Acute Code(s): F41.1 - Generalized anxiety disorder (2) Major depression in complete remission: Status: Acute Code(s): F32.5 - Major depressive disorder, single episode, in full remission Plan Patient seen psychiatric follow-up. Patient has appropriate strategies to manage her condition has extensive family and friendship support and has confucianism belief and prayer that seems to be helping her. She does have some appropriate apprehension she is not in any current pain. Chemo was every 28 days and side effects last few days quality of life remains intact. Discussed adding 0.5 mg during the day as needed of clonazepam continue mirtazapine low-dose doxepin may need to lower any of these meds based on the patient's condition and sedation at present time patient has been tolerating clonazepam for an extended period of time with good gait no falls and clear sensorium and mentation Patient is not anhedonic remains socially engaged Medications: New clonazepam orally as directed; 1/2 tab daily as needed for severe anxiety 1/2-1 tab bedtime 135 tabs 1RF Dami Eason MD Refilled doxepin 10 mg PO BEDTIME 90 caps 1RF Dami Eason MD mirtazapine 30 mg PO BEDTIME 90 tabs 1RF Dami Eason MD Discontinued clonazepam administer 30 minutes before bedtime 0.5 - 1 mg (0.5 - 1 x 1 mg) PO BEDTIME 90 tabs 1RF Loraine Null [facility] Counseling and coordination of Care Medication management counseling: Effectiveness, Side effects and Dosing range Diagnosis and Prognosis Counseling: Adequacy of current interventions Details: I spent [30 minutes reviewing the record, seeing the patient and documenting in the medical record. Counseling provided to the patient/caregiver as outlined below. Addressed patient/caregiver concerns regarding current medication regime including effective adherence. Addressed patient/caregiver concerns regarding diagnosis and prognosis including accuracy of diagnosis, prognosis over time, impact of diagnosis. Addressed patient/caregiver concerns regarding impact of recent stressors. 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
== END 2023-01-05 13:39 | disposition home or self-care (01) ==
LOC: HO.HOP 11:28
PROVIDERS: PCP Internal Medicine Medical Oncology; Visit Provider Psychiatry & Neurology Psychiatry
DX: F41.1 Generalized anxiety disorder (principal); F32.5 Major depressive disorder, single episode, in full remission
CPT/HCPCS: 99214

== ENCOUNTER → 2023-01-05 11:28 | Outpatient (BNVA) | payer MEDICARE, SELFPAY | PROVIDERS: PCP Internal Medicine Medical Oncology; Visit Provider Psychiatry & Neurology Psychiatry | DX: F41.1 Generalized anxiety disorder (principal); F32.5 Major depressive disorder, single episode, in full remission | CPT/HCPCS: 99212 ==

== ENCOUNTER 2023-06-16 10:54 | Outpatient (REF) | payer MEDICARE, SELFPAY ==
--- NOTE | ~2023-06-16 | MM_ITS ---
EXAMINATION: MM SCREENING DIGITAL BREAST TOMOSYNTHESIS, BILATERAL CLINICAL INFORMATION: Screening. Asymptomatic. Personal history of ovarian CVA. COMPARISON: Mammography: 06/11/2022, 05/27/2021, and studies dating back to February 06, 2015 TECHNIQUE: Digital breast tomosynthesis is performed in both the craniocaudal and mediolateral oblique views along with computer-aided detection (CAD). Synthesized 2D images are generated from the tomosynthesis. FINDINGS: The breasts are heterogeneously dense, which may obscure small masses (ACR BI-RADS breast composition Category c). There is a port in the left axillary region. There are benign calcifications bilaterally. There are no suspicious masses, suspicious grouped calcifications, or areas of architectural distortion in either breast. The parenchymal pattern is stable from prior exams. MM/MM tomosynthesis screening BI IMPRESSION: No mammographic evidence of malignancy. ASSESSMENT: BI-RADS BI-RADS 2 - Benign Findings RECOMMENDATION: Routine annual mammography screening. 1 year F/U This examination should not preclude the clinical evaluation of a suspicious palpable abnormality. This patient's information was entered into a reminder system with a target due date for their next mammogram.
== END 2023-06-16 10:55 | disposition home or self-care (01) ==
LOC: HO.MAMMO 10:54
PROVIDERS: PCP Internal Medicine Medical Oncology; Visit Provider Internal Medicine Medical Oncology
DX: Z12.31 Encounter for screening mammogram for malignant neoplasm of breast (principal)
CPT/HCPCS: 77063; 77067

== ENCOUNTER → 2023-06-16 11:00 | Outpatient (BNV) | payer MEDICARE, SELFPAY | PROVIDERS: PCP Internal Medicine Medical Oncology; Visit Provider Radiology Diagnostic Radiology | DX: Z12.31 Encounter for screening mammogram for malignant neoplasm of breast (principal) | CPT/HCPCS: 77063; 77067 ==

== ENCOUNTER 2023-07-06 16:00 | Outpatient (AMB) | payer MEDICARE, SELFPAY ==
--- NOTE | 2023-07-06 12:12 | MHC.OFFVISPS ---
Intake Intake Visit Reasons: depression Allergies Sulfa (Sulfonamide Antibiotics) [Sulfa (Sulfonamides)] Allergy (Mild, Verified 09/04/22 09:04) RASH Medication List - Last Reconciled 07/06/23 by Dami Eason MD ascorbic acid (vitamin C) 1,000 mg PO DAILY clonidine HCl 0.3 mg PO BEDTIME doxepin 10 mg PO BEDTIME estradiol 0.01%(0.1mg/gram) grams vaginal mirtazapine 30 mg PO BEDTIME niraparib ([place]ejula) 100 mg PO DAILY nitrofurantoin macrocrystal 50 mg PO DAILY peg 3350-electrolytes 236-22.74-6.74 -5.86 gram (Golytely) 240 mL PO Q10M temazepam 7.5 - 15 mg (1 - 2 x 7.5 mg) PO BEDTIME PRN HPI- Psychiatric Chief Complaint: depression HPI Narrative: The patient. The patient has cancer getting chemo generally stable. She reports insomnia has been on clonazepam and doxepin has difficulty falling and staying asleep. She does have chronic insomnia we have discussed sleep hygiene techniques Past Psychiatric History: The patient has a long history of anxiety depression and insomnia. She has been stable for an extended period of time. She has also had chronic problems with insomnia. Patient was on Paxil in the past Mental Status Exam Mental Status Exam Narrative: Mental Status Exam Narrative: Normal gait Appearance: Casually dressed Behavior: Cooperative appropriate psychomotor: Within normal limits Speech: Normal volume and prosody Thought proccess logical and goal-directed Thought content: Future oriented appropriate concerns about her medical condition apprehensive worried re insomnia Mood: Anxious apprehensive Affect: Appropriate to mood SI:denies HI:denies VH/AH:none Delusions: None Insight/judgment: Good insight and judgment patient does understand that she is coming perhaps toward the end of treatment for her cancer appears to be making peace with this ongoing Memory/cog: Intact Assessment and Plan Assessment & Plan (1) Generalized anxiety disorder: Status: Acute Code(s): F41.1 - Generalized anxiety disorder (2) Major depression in complete remission: Status: Acute Code(s): F32.5 - Major depressive disorder, single episode, in full remission (3) Insomnia: Status: Acute Code(s): G47.00 - Insomnia, unspecified Plan Continue low-dose doxepin and mirtazapine warned regarding oversedation fall risk hold clonazepam trial temazepam 7.5 mg at bedtime old monitor response trying to help improve patient's quality of life in the context of end-stage cancer they are trying to maintain a maintenance phase Medications: New temazepam 7.5 - 15 mg (1 - 2 x 7.5 mg) PO BEDTIME PRN 90 caps 1RF sleep Refilled doxepin 10 mg PO BEDTIME 90 caps 1RF mirtazapine 30 mg PO BEDTIME 90 tabs 1RF Discontinued clonazepam Discontinued Reason: None orally as directed; 1/2 tab daily as needed for severe anxiety 1/2-1 tab bedtime 135 tabs 1RF Counseling and coordination of Care Pt. Self Management counseling: Sleep hygiene Medication management counseling: Effectiveness and Side effects Diagnosis and Prognosis Counseling: Adequacy of current interventions Details: I spent [25] minutes reviewing the record, seeing the patient and documenting in the medical record. Counseling provided to the patient/caregiver as outlined below. Addressed patient/caregiver concerns regarding current medication regime including effective adherence. Addressed patient/caregiver concerns regarding diagnosis and prognosis including accuracy of diagnosis, prognosis over time, impact of diagnosis. Addressed patient/caregiver concerns regarding impact of recent stressors. 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
== END 2023-07-06 16:01 | disposition home or self-care (01) ==
LOC: HO.HOP 16:00
PROVIDERS: PCP Internal Medicine Medical Oncology; Visit Provider Psychiatry & Neurology Psychiatry
DX: F41.1 Generalized anxiety disorder (principal); F32.5 Major depressive disorder, single episode, in full remission; G47.00 Insomnia, unspecified
CPT/HCPCS: 99214

== ENCOUNTER → 2023-07-06 16:00 | Outpatient (BNVA) | payer MEDICARE, SELFPAY | PROVIDERS: PCP Internal Medicine Medical Oncology; Visit Provider Psychiatry & Neurology Psychiatry | DX: F32.5 Major depressive disorder, single episode, in full remission (principal); F41.1 Generalized anxiety disorder; G47.00 Insomnia, unspecified | CPT/HCPCS: 99212 ==

== ENCOUNTER 2024-02-08 11:09 | Outpatient (AMB) | payer MEDICARE, SELFPAY ==
--- NOTE | 2024-02-08 11:29 | MHC.OFFVISPS ---
Intake Intake Visit Reasons: depression Allergies Sulfa (Sulfonamide Antibiotics) [Sulfa (Sulfonamides)] Allergy (Mild, Verified 09/04/22 09:04) RASH Medication List - Last Reconciled 02/08/24 by Dami Eason MD ascorbic acid (vitamin C) 1,000 mg PO DAILY clonidine HCl 0.3 mg PO BEDTIME estradiol 0.01%(0.1mg/gram) grams vaginal mirtazapine 30 mg PO BEDTIME nitrofurantoin macrocrystal 50 mg PO DAILY peg 3350-electrolytes 236-22.74-6.74 -5.86 gram (Golytely) 240 mL PO Q10M rucaparib (Rubraca) 500 mg PO BID sertraline 100 mg PO DAILY trazodone 100 mg PO BEDTIME HPI- Psychiatric Chief Complaint: depression HPI Narrative: Pt has ovarian cancer has spread to [place] on rubraca 250 bid no sig side effects mood stable occassional panic but able to restabilize talks with friends goes walking Pt very active in yazidi has centering exercises Past Psychiatric History: The patient has a long history of anxiety depression and insomnia. She has been stable for an extended period of time. She has also had chronic problems with insomnia. Patient was on Paxil in the past Assessment and Plan Assessment & Plan (1) Generalized anxiety disorder: Status: Acute Code(s): F41.1 - Generalized anxiety disorder (2) Major depression in complete remission: Status: Acute Code(s): F32.5 - Major depressive disorder, single episode, in full remission Plan Patient had been started on sertraline and Ambien by her PCP continue mirtazapine would not discontinue combination may be quite effective no significant side effects noted no complaints of dizziness over-sedation does have strategies to manage anxiety review different management strategies patient has had an increase in her CA 125 has been more anxious she is on a PARP inhibitor Rubraca she is seen by Dr. Lucas [facility] programming instructor Oncology on a once a month or q.2 months basis follow-up 4 months patient now on Ambien off Klonopin there are chronic risk factor with chronic use of benzodiazepines patient with stage III for ovarian cancer and increasing anxiety with over the past few months her CA 125 marker going up benefits continued help with anxiety and insomnia bedtime might benefit from a small p.r.n. dose of benzodiazepine if needed Otherwise PHQ-9 GED not overly elevated she did feel reassured by the end of meeting she does have someone go with her to her oncology appointments Medications: Refilled mirtazapine 30 mg PO BEDTIME 90 tabs 1RF Counseling and coordination of Care Pt. Self Management counseling: Breathing Details-Self Mgmt counseling: Issues related to living with chronic cancer how to keep positive attitude maintain a quality of life Medication management counseling: Effectiveness, Side effects and Dosing range Diagnosis and Prognosis Counseling: Adequacy of current interventions Details: I spent [40] minutes reviewing the record, seeing the patient and documenting in the medical record. Counseling provided to the patient/caregiver as outlined below. Addressed patient/caregiver concerns regarding current medication regime including effective adherence. Addressed patient/caregiver concerns regarding diagnosis and prognosis including accuracy of diagnosis, prognosis over time, impact of diagnosis. Addressed patient/caregiver concerns regarding impact of recent stressors. 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
== END 2024-02-08 12:13 | disposition home or self-care (01) ==
LOC: HO.HOP 11:09
PROVIDERS: PCP Internal Medicine Medical Oncology; Visit Provider Psychiatry & Neurology Psychiatry
DX: F41.1 Generalized anxiety disorder (principal); F32.5 Major depressive disorder, single episode, in full remission
CPT/HCPCS: 90833; 99213

== ENCOUNTER → 2024-02-08 11:09 | Outpatient (BNVA) | payer MEDICARE, SELFPAY | PROVIDERS: PCP Internal Medicine Medical Oncology; Visit Provider Psychiatry & Neurology Psychiatry | DX: F41.1 Generalized anxiety disorder (principal); F32.5 Major depressive disorder, single episode, in full remission | CPT/HCPCS: 99212 ==

== ENCOUNTER → 2024-02-18 14:40 | Outpatient (RCR) | payer MEDICARE, SELFPAY ==
[2020-12-21 09:14] VITALS: BP 156/91; PULSE 111; RESP 18; TEMP 36.3; O2SAT 96; BMI 27.9
[2020-12-21] MEDS: Alteplase Cath Clear 2 MG VIAL INTRACATH (09:48)
--- NOTE | 2020-12-21 10:29 | MHC.HEMONC ---
pt here per Dr Meier for CathFlo to right left chest port as it has been difficult to flush despite positive blood return. CathFlo instilled for 30 minutes with good effect.
--- NOTE | 2021-08-15 15:52 | MHC.HEMONC ---
Pt had port study performed today. Fibrin sheath present. At end of procedure blood was aspirated per note from radiology. Port was flushed with hep lock solution in radiology. Dr Meier notified.
== END | disposition home or self-care (01) ==
LOC: HO.ONC 12-21 08:58
PROVIDERS: PCP Internal Medicine Medical Oncology; Visit Provider Internal Medicine Medical Oncology
DX: Z45.2 Encounter for adjustment and management of vascular access device (principal); C56.9 Malignant neoplasm of unspecified ovary
CPT/HCPCS: 36593; J1642; J2997

== ENCOUNTER 2024-06-10 10:34 | Outpatient (AMB) | payer MEDICARE, SELFPAY ==
--- OUTSIDE RECORDS SUMMARY | 2024-06-10 10:37 | XMS_ITS | Patient Health Record ---
Author Organization Gerber Meier III, MD Address [address] [place] [address] [place] [address] Care Team Providers Care Console Attendant Name Role Phone Gerber Meier Primary Care Provider Allergies Allergen (clinical drug ingredient) Drug/Non Drug Allergy documented on EMR Reaction Allergy Type Onset Date Status sulfacetamide Sulfacetamide Unknown Drug Allergy Active Results Component Value Reference Range Notes MM tomosynthesis screening B I Reviewed date:07/12/2023 08:27:31 AM Interpretation: Performing Lab: Notes/Report: [address] [place] [address] Mammography Report Signed Patient: Jessica Murray MR#: [id number] 74 : 1940 Acct:[id number] Age/Sex: 83 / F ADM Date: 06/16/23 Loc: HO.MAMMO Attending Dr: Gerber Meier MD Ordering Physician: Gerber Meier MD Results: 2Benign Findings Date of Service: 06/16/23 Follow Up: 1 Year From [facility] Mammogram Procedure(s): MM tomosynthesis screening BI Accession Number(s): [id number] cc: Gerber Meier MD EXAMINATION: MM SCREENING DIGITAL BREAST TOMOSYNTHESIS, BILATERAL CLINICAL INFORMATION: Screening. Asymptomatic. Personal history of ovarian CVA. COMPARISON: Mammography: 06/11/2022, 05/27/2021, and studies dating back to February 06, 2015 TECHNIQUE: Digital breast tomosynthesis is performed in both the craniocaudal and mediolateral oblique views along with computer-aided detection (CAD). Synthesized 2D images are generated from the tomosynthesis. FINDINGS: The breasts are heterogeneously dense, which may obscure small masses (ACR BI-RADS breast composition Category c). There is a port in the left axillary region. There are benign calcifications bilaterally. There are no suspicious masses, suspicious grouped calcifications, or areas of architectural distortion in either breast. The parenchymal pattern is stable from prior exams. MM/MM tomosynthesis screening BI IMPRESSION: No mammographic evidence of malignancy. ASSESSMENT: BI-RADS BI-RADS 2 - Benign Findings RECOMMENDATION: Routine annual mammography screening. 1 year F/U This examination should not preclude the clinical evaluation of a suspicious palpable abnormality. This patient's information was entered into a reminder system with a target due date for their next mammogram. Dictated By: Trell Lock MD Signed By: <Electronically signed by Trell Lock MD in OV> 07/07/23 0955 DD/ 1115 TD/TT: Senior Research Scientist: [place] [facility] [address] [place] [address] Mammography Report Signed Patient: Rey Murray MR#: [id number] 74 : 1940 Acct:[id number] Age/Sex: 83 / F ADM Date: 06/16/23 Loc: HO.MAMMO Attending Dr: Gerber Meier MD Ordering Physician: Gerber Meier MD Results: 2Benign Findings Date of Service: 08/08 Follow Up: 1 Year From [facility] Mammogram Procedure(s): MM chau osynthesis screening BI Accession Number(s): [id number] cc: Gerber Meier MD EXAMINATION: MM SCREENING DIGITAL BREAST TOMOSYNTHESIS, BILATERAL CLINICAL INFORMATION: Screening. Asymptoma tic. Personal history of ovarian CVA. COMPARISON: Mammography: 022, 05/27/2021, and studies dating back to February 06, 2015 TECHNIQUE: Digital breast tomos ynthesis is performed in both the craniocaudal and mediolateral oblique views along with computer-aided detection (CAD). Synthesized 2D image s are generated from the tomosynthesis. FINDINGS: The breasts are hete rogeneously dense, which may obscure small masses (ACR BI-RADS breast composition Category c). There is a port in t he left axillary region. There are benign calcifications bilat erally. There are no suspicious masses, suspicious grouped calcificatio ns, or areas of architectural distortion in either breast. The parenchy mal pattern is stable from prior exams. M M/MM tomosynthesis screening BI IMPRESSION: No mammographic evid ence of malignancy. ASSESSMENT: BI-RADS BI-RADS 2 - Benign Findings RECOMMENDATION: Routine annual mammo graphy screening. 1 year F/U This examination chan uld not preclude the clinical evaluation of a suspicious palpable abnormality. This patient's infor mation was entered into a reminder system with a target due date for their next mammogram. Dictated By: Trell Lock MD Signed By: <Gt werner signed by Trell Lock MD in OV> 07/07/23 0955 DD/ 1115 TD/TT: Senior Research Scientist: Reason For Referral Reason Urgent Visit Request Consult and Treat Severe Insomia Diagnosis 1 Ovarian cancer (C56. 9) Diagnosis 2 Primary insomnia (F5 1.01) Referral Organization Gerber Meier III, MD Referring Provider First Name Gerber Referring Provider Last Name Meier Referring Provider Speciality Internal edicine Referred Provider [facility] er, Sleep Lab Referred Provider Specialty Sleep Medici ne General Notes Jayna Paiz 09/09 03:50:34 PM > Faxed referral and progress note, Sandy Leyva CMA 12/21/2023 10:23:55 AM EDT > Pt called stated she was called and her appt with [place] sleep lab is not until 07/14/2024 at 3pm at [address] [facility] . Referral Priority Routine Referral Appointment Date 07/14/2024 Reason severe insomnia Diagnosis 1 Primary insomnia (F5 1.01) Referral Organization Gerber Meier III, MD Referring Provider First Name Gerber Referring Provider Last Name Meier Referring Provider Speciality Internal edicine Referred Provider Sleep Medicine, [facility] ices Referred Provider Specialty Sleep Medici ne General Notes Sandy Leyva CM 12/22/2023 01:10:18 PM EDT > ref/demo/progress note faxed to sleep medicine in [place] , Sandy Leyva CMA 12/31/2023 01:35:37 PM EDT > I called sleep medicine services they stated they tried to call patient for appt and sent her out a letter to call them to set up an appt .I called pt today left message on her [employer] machine with the contact number for her to call them for an appt , Sandy Leyva DEANNA 12/31/2023 01:45:50 PM EDT > Per Dr Meier this referral was cancelled pt is no longer having trouble with her insomnia. I called Sleep Medicine told them to cancel this referral Referral Priority Routine Medications Medication SIG (Take, Route, Frequency, Duration) Notes Start Date End Date Status Nitrofurantoin Macrocrystal 50 MG TAKE 1 CAPSULE ONCE DAILY WITH FOOD OR MILK Active Rubraca 250 MG 2 tablets Orally Twice a day 03/22/2024 Active Zejula 100 MG Oral Active Prochlorperazine Maleate 10 MG TAKE ONE TABLET BY MOUTH EVERY 6 HOURS NEEDED FOR NAUSEA Oral Active Lidocaine-Prilocaine 2.5-2.5 % as directed Externally apply over portacath 1 hour prior to treatment time Active Estradiol 0.1 MG/GM USE 1GM VAGINALLY ONCE DAILY THURSDAY THROUGH THURSDAY as needed Active Sertraline HCl 100 MG 1 tablet Orally On ce a day 09/09/2023 Active Zolpidem Tartrate 10 MG 1 tablet Orally every night at bedtime 04/26/2024 Active Sertraline HCl 50 MG 1 tablet Orally Onc e a day 08/28/2023 Active traZODone HCl 100 MG 1 tablet at bedtime Orally Once a day 08/24/2023 Active Mirtazapine 30 MG 1 tablet before bedtime every evening Orally Once a day Active cloNIDine HCl 0.3 MG 2 tablets Orally at bedtime 10/05/2023 Active Lidocaine-Prilocaine 2.5-2.5 % as directed Externally Apply over Portacath 1 hour prior to treatment 05/03/2024 Active Immunizations Vaccine Route Administration Date Status Comme nts COVID PFIZER Unknown 03/13/2021 Administered COVID PFIZER Unknown 07/23/2020 Administered Tdap Unknown 04/30/2015 Administered COVID PFIZER Unknown 09/22/2021 Administered COVID PFIZER Unknown 08/12/2020 Administered Social History Tobacco Use: Social History Observation Description Date Details (start date - stop date) Former Smoker NA - NA Sex Assigned At : Social History Observation Description Sex Assigned At Female Tobacco Use/Smoking Question Answer Notes Patient is a former smoker How long has it been since you last smoked? > 10 years Additional Findings: Tobacco Non-User Ex-cigaret te smoker Alcohol Screen Question Answer Notes Did you have a drink containing alcohol in the p ast year? No Points 0 Interpretation Negative Problems Problem Type SNOMED Code ICD Code Onset Dates Problem Status W/U Status Risk Notes Problem 7131659 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 Problem 196688154 Overweight (E66.3) Active confirmed Her body mass index is now 24 and this problem has resolved. Problem Back pain (629664112) Back pain (M54.9) Active confirmed Her acute low back pain has resolved and she was comfortable today. Problem 72835831 Hyperglycemia (R73.9) Active confirmed Low values will be obtained from the [facility]. They will be reviewed. Problem 952112843 Underweight (R63.6) Active confirmed Her body mass index is now 19. We have discussed diet and nutrition at length. Problem 52269373 Skin lesion (L98.9) Active confirmed The area on her left neck is 1.5 cm and now appears to be neoplastic. She was referred to dermatology. Problem 3037170 Primary insomnia (F51.01) Active confirmed This has begun to improve with her medications. Problem 15588957 Alopecia (L65.9) Active confirmed She continues t o wear a blond wig. Problem 09664032 Monocytosis (D72.821) Active confirmed The absolute monocyte count is now 0.4, which is in the normal range. Problem 844438773 Port-a-cath in place (Z95.828) Active confirmed The skin ove r the port was cleaned with Betadine and alcohol. Using sterile technique. A Jaimes needle was used to access the port. A blood return was accomplished. The port was flushed with 10 cc of saline and 10 cc of heparin solution and the needle was removed. It functioned well and there were no complications. It will be flushed again in a week's if this is not done in [facility] oncology. Problem 715129703 Ovarian cancer (C56.9) Active confirmed She has been continued on the oral niraparib. There is no sign of progressive disease on today's examination.Her alopecia has resolved. Her weight is stable at 101 pounds. Problem 14265929 Neurotoxicity (R29.90) Active confirmed She has had no additional neurotoxicity from the etoposide. It is mild at this time and slowly resolving. No treatment is necessary. 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 She will continue on her current medicatioons. Problem 878777670 Diverticula of colon (K57.30) Active confirmed Physical examination in the CT findings are consistent with diverticulitis or perforation from a neoplasm. She is medically stable and was treated with ciprofloxacin and metronidazole. She will be observed carefully. Vital Signs Heart Rate 81 /min 06/09/2024 Temperature 98.5 degrees Fahrenheit 06/09/2024 Blood pressure diastolic 68 mm Hg 06/09/2024 Height 61 in 06/09/2024 Blood pressure systolic 96 mm Hg 06/09/2024 Weight 101 lbs 06/09/2024 BMI 19.08 kg/m2 06/09/2024 Encounters Encounter Location Date Provider Diagnosis Gerber Meier III, MD [address] [place] [address] [place] [address] 08/14/2023 Gerber Meier Ovarian cancer C56.9 ; Former smoker Z87.891 ; Back pain M54.9 and Port-a-cath in place Z95.828 Gerber Meier III, MD [address] [place] [address] [place] [address] 08/21/2023 Gerber Meier Ovarian cancer C56.9 ; Former smoker Z87.891 ; Alopecia L65.9 ; Port-a-cath in place Z95.828 ; Back pain M54.9 and Primary insomnia F51.01 Gerber Meier III, MD [address] [place] [address] [place] [address] 09/02/2023 Gerber Meier Ovarian cancer C56.9 ; Former smoker Z87.891 ; Alopecia L65.9 ; Port-a-cath in place Z95.828 ; Back pain M54.9 and Primary insomnia F51.01 Gerber Meier III, MD [address] [place] [address] [place] [address] 09/09/2023 Gerber Meier Ovarian cancer C56.9 ; Former smoker Z87.891 and Primary insomnia F51.01 Gerber Meier III, MD [address] [place] [address] [place] [address] 09/16/2023 Gerber Meier Ovarian cancer C56.9 ; Hyperglycemia R73.9 ; Former smoker Z87.891 ; Port-a-cath in place Z95.828 ; Alopecia L65.9 ; Back pain M54.9 ; Primary insomnia F51.01 and Moderate depressive disorder F32.A Gerbre Meier III, MD [address] [place] [address] [place] [address] 09/21/2023 Gerber Meier Ovarian cancer C56.9 ; Former smoker Z87.891 ; Port-a-cath in place Z95.828 ; Alopecia L65.9 ; Primary insomnia F51.01 and Moderate depressive disorder F32.A Gerber Meier III, MD [address] [place] [address] [place] [address] 09/28/2023 Gerber Phamrne Ovarian cancer C56.9 ; Former smoker Z87.891 ; Port-a-cath in place Z95.828 ; Back pain M54.9 ; Primary insomnia F51.01 and Reactive depression F32.9 Gerber Meier III, MD [address] [place] [address] [place] [address] 10/05/2023 Gerber Meier Ovarian cancer C56.9 ; Former smoker Z87.891 ; Alopecia L65.9 ; Back pain M54.9 ; Port-a-cath in place Z95.828 and Primary insomnia F51.01 Gerber Meier III, MD [address] [place] [address] [place] [address] 11/18/2023 Gerber Phamrne Ovarian cancer C56.9 ; Former smoker Z87.891 ; Port-a-cath in place Z95.828 ; Primary insomnia F51.01 ; Reactive depression F32.9 and Underweight R63.6 Gerber Meier III, MD [address] [place] [address] [place] [address] 12/29/2023 Gerber Meier Ovarian cancer C56.9 ; Former smoker Z87.891 ; Port-a-cath in place Z95.828 ; Back pain M54.9 ; Reactive depression F32.9 ; Underweight R63.6 and Encounter for care related to Port-a-Cath Z45.2 Gerber Meier III, MD [address] [place] [address] [place] [address] 02/09/2024 Gerber Meier Ovarian cancer C56.9 ; Former smoker Z87.891 ; Port-a-cath in place Z95.828 ; Underweight R63.6 ; Back pain M54.9 and Primary insomnia F51.01 Gerber Meier III, MD [address] [place] [address] [place] [address] 03/22/2024 Gerber Meier Ovarian cancer C56.9 ; Hyperglycemia R73.9 ; Former smoker Z87.891 ; Alopecia L65.9 ; Reactive depression F32.9 ; Underweight R63.6 ; Port-a-cath in place Z95.828 and Low back pain M54.5 Gerber Meier III, MD [address] [place] [address] [place] [address] 05/03/2024 Gerber Meier Ovarian cancer C56.9 ; Former smoker Z87.891 ; Back pain M54.9 and Port-a-cath in place Z95.828 Gerber Meier III, MD [address] [place] [address] [place] [address] 06/09/2024 Gerber Meier Ovarian cancer C56.9 ; Former smoker Z87.891 ; Back pain M54.9 ; Port-a-cath in place Z95.828 and Underweight R63.6 Gerber Meier III, MD [address] [place] [address] [place] [address] 08/17/2023 Gerber Meier III, MD [address] [place] [address] [place] [address] 08/24/2023 Gerber Meier III, MD [address] [place] [address] [place] [address] 08/24/2023 Gerber Meier III, MD [address] [place] [address] [place] [address] 08/27/2023 Gerber Meier III, MD [address] [place] [address] [place] [address] 08/28/2023 Gerber Meier III, MD [address] [place] [address] [place] [address] 09/07/2023 Gerber Meier III, MD [address] [place] [address] [place] [address] 09/10/2023 Gerber Meier III, MD [address] [place] [address] [place] [address] 10/05/2023 Gerber Meier III, MD [address] [place] [address] [place] [address] 10/05/2023 Gerber Meier III, MD [address] [place] [address] [place] [address] 10/12/2023 Gerber Meier III, MD [address] [place] [address] [place] [address] 10/12/2023 Gerber Meier III, MD [address] [place] [address] [place] [address] 12/21/2023 Gerber Meier III, MD [address] [place] [address] [place] [address] 04/11/2024 Gerber Meier III, MD [address] [place] [address] [place] [address] 04/26/2024 Gerber Meier Ovarian cancer C56.9 Assessments Encounter Date Diagnosis (ICD Code) Assessment Notes Treat ment Notes Treatment Clinical Notes 08/14/2023 Former smoker (ICD-10 - Z87.891) She has formulated a plan to prevent relapse in times of stress and illness. 08/14/2023 Ovarian cancer (ICD-10 - C56.9) She is now being treated with niraparib the [facility] oncology unit. This new medication makes her quite tired and unable to sleep She has been compliant, however. Given her a small supply of clonazepam to help her relax and feel less anxious and sleep at night. She has had success with this medication in the past. 08/21/2023 Former smoker (ICD-10 - Z87.891) She has formulated a plan to prevent relapse in times of stress and illness. 08/21/2023 Ovarian cancer (ICD-10 - C56.9) She is now being treated with niraparib the [facility] oncology unit. This new medication makes her quite tired and unable to sleep She has been compliant, however. Given her a small supply of clonazepam to help her relax and feel less anxious and sleep at night. She has had success with this medication in the past. 09/02/2023 Former smoker (ICD-10 - Z87.891) She has formulated a plan to prevent relapse in times of stress and illness. 09/02/2023 Ovarian cancer (ICD-10 - C56.9) She has resumed taking her oral medication. 09/09/2023 Former smoker (ICD-10 - Z87.891) She has formulated a plan to prevent relapse in times of stress and illness. 09/09/2023 Ovarian cancer (ICD-10 - C56.9) She has resumed taking her oral medication. 09/16/2023 Hyperglycemia (ICD-10 - R73.9) Low values will be obtained from the [facility]. They will be reviewed. 09/16/2023 Ovarian cancer (ICD-10 - C56.9) She has resumed taking her oral medication. 09/21/2023 Former smoker (ICD-10 - Z87.891) She has formulated a plan to prevent relapse in times of stress and illness. 09/21/2023 Ovarian cancer (ICD-10 - C56.9) She has resumed taking her oral medication.There is no sign of progressive disease on today's examination. 09/28/2023 Former smoker (ICD-10 - Z87.891) She has formulated a plan to prevent relapse in times of stress and illness. 09/28/2023 Ovarian cancer (ICD-10 - C56.9) She has resumed taking her oral medication.There is no sign of progressive disease on today's examination. patient requested wheeled walker with a seat RX /demographics sent to [facility] . pt aware of this 10/05/2023 Former smoker (ICD-10 - Z87.891) She has formulated a plan to prevent relapse in times of stress and illness. 10/05/2023 Ovarian cancer (ICD-10 - C56.9) She has resumed taking her oral medication.There is no sign of progressive disease on today's examination. 11/18/2023 Former smoker (ICD-10 - Z87.891) She has formulated a plan to prevent relapse in times of stress and illness. 11/18/2023 Ovarian cancer (ICD-10 - C56.9) She has resumed taking her oral medication.There is no sign of progressive disease on today's examination. 12/29/2023 Former smoker (ICD-10 - Z87.891) She has formulated a plan to prevent relapse in times of stress and illness. 12/29/2023 Ovarian cancer (ICD-10 - C56.9) She has resumed taking her oral medication.There is no sign of progressive disease on today's examination. 02/09/2024 Former smoker (ICD-10 - Z87.891) She has formulated a plan to prevent relapse in times of stress and illness. 02/09/2024 Ovarian cancer (ICD-10 - C56.9) She has resumed taking her oral medication.There is no sign of progressive disease on today's examination.Her alopecia has resolved. She has gained 3 pounds. 03/22/2024 Hyperglycemia (ICD-10 - R73.9) Low values will be obtained from the [facility]. They will be reviewed. 03/22/2024 Ovarian cancer (ICD-10 - C56.9) She has resumed taking her oral medication.There is no sign of progressive disease on today's examination.Her alopecia has resolved. Her weight is stable at 109 pounds. 05/03/2024 Former smoker (ICD-10 - Z87.891) She has formulated a plan to prevent relapse in times of stress and illness. 05/03/2024 Ovarian cancer (ICD-10 - C56.9) She is takingher oral medication.There is no sign of progressive disease on today's examination.Her alopecia has resolved. Her weight is stable at 100 pounds. 06/09/2024 Former smoker (ICD-10 - Z87.891) She has formulated a plan to prevent relapse in times of stress and illness. 06/09/2024 Ovarian cancer (ICD-10 - C56.9) She has been continued on the oral niraparib. There is no sign of progressive disease on today's examination.Her alopecia has resolved. Her weight is stable at 101 pounds. 04/26/2024 Ovarian cancer (ICD-10 - C56.9) She has resumed taking her oral medication.There is no sign of progressive disease on today's examination.Her alopecia has resolved. Her weight is stable at 109 pounds. 08/14/2023 Back pain (ICD-10 - M54.9) Her acute low back pain has resolved and she was comfortable today. 08/21/2023 Alopecia (ICD-10 - L65.9) She continues to wear a blond wig. 09/02/2023 Alopecia (ICD-10 - L65.9) She continues to wear a blond wig. 09/09/2023 Primary insomnia (ICD-10 - F51.01) I think she has an agitated depression. She will continue on 100 mg of sertraline 100 mg trazodone every night. She will stop the clonazepam and take zolpidem 09/16/2023 Former smoker (ICD-10 - Z87.891) She has formulated a plan to prevent relapse in times of stress and illness. 09/21/[address]-a-[address] in place (ICD-10 - Z95.828) The skin over the port was cleaned with Betadine and alcohol. Using sterile technique. A Jaimes needle was used to access the port. A blood return was accomplished. The port was flushed with 10 cc of saline and 10 cc of heparin solution and the needle was removed. It functioned well and there were no complications. It will be flushed again in a week's if this is not done in [facility] oncology. 09/28/[address]23 [address]-a-[address] in place (ICD-10 - Z95.828) The skin over the port was cleaned with Betadine and alcohol. Using sterile technique. A Jaimes needle was used to access the port. A blood return was accomplished. The port was flushed with 10 cc of saline and 10 cc of heparin solution and the needle was removed. It functioned well and there were no complications. It will be flushed again in a week's if this is not done in [facility] oncology. 10/05/2023 Alopecia (ICD-10 - L65.9) She continues to wear a blond wig. 11/18/2023 [address]-a-[address] in [address] (ICD-10 - Z95.828) The skin over the port was cleaned with Betadine and alcohol. Using sterile technique. A Jaimes needle was used to access the port. A blood return was accomplished. The port was flushed with 10 cc of saline and 10 cc of heparin solution and the needle was removed. It functioned well and there were no complications. It will be flushed again in a week's if this is not done in [facility] oncology. 12/29/2023 Port-a-c[address] in place (ICD-10 - Z95.828) The skin over the port was cleaned with Betadine and alcohol. Using sterile technique. A Jaimes needle was used to access the port. A blood return was accomplished. The port was flushed with 10 cc of saline and 10 cc of heparin solution and the needle was removed. It functioned well and there were no complications. It will be flushed again in a week's if this is not done in [facility] oncology. 02/09/2024 Port-a-cath in place (ICD-10 - Z95.828) The skin over the port was cleaned with Betadine and alcohol. Using sterile technique. A Jaimes needle was used to access the port. A blood return was accomplished. The port was flushed with 10 cc of saline and 10 cc of heparin solution and the needle was removed. It functioned well and there were no complications. It will be flushed again in a week's if this is not done in [facility] oncology. 03/22/2024 Former smoker (ICD-10 - Z87.891) She has formulated a plan to prevent relapse in times of stress and illness. 05/03/2024 Back pain (ICD-10 - M54.9) Her acute low back pain has resolved and she was comfortable today. 06/09/2024 Back pain (ICD-10 - M54.9) Her acute low back pain has resolved and she was comfortable today. 08/14/[address]-a-[address] in place (ICD-10 - Z95.828) The skin over the port was cleaned with Betadine and alcohol. Using sterile technique. A Jaimes needle was used to access the port. A blood return was accomplished. The port was flushed with 10 cc of saline and 10 cc of heparin solution and the needle was removed. It functioned well and there were no complications. It will be flushed again in a week's if this is not done in [facility] oncology. 08/21/2023 Port-a-cath in place (ICD-10 - Z95.828) The skin over the port was cleaned with Betadine and alcohol. Using sterile technique. A Jaimes needle was used to access the port. A blood return was accomplished. The port was flushed with 10 cc of saline and 10 cc of heparin solution and the needle was removed. It functioned well and there were no complications. It will be flushed again in a week's if this is not done in [facility] onc[facility]. 09/02/2023 Port-a-cath in place (ICD-10 - Z95.828) The skin over the port was cleaned with Betadine and alcohol. Using sterile technique. A Jaimes needle was used to access the port. A blood return was accomplished. The port was flushed with 10 cc of saline and 10 cc of heparin solution and the needle was removed. It functioned well and there were no complications. It will be flushed again in a week's if this is not done in [facility]. 09/16/2023 Port-a-cath in place (ICD-10 - Z95.828) The skin over the port was cleaned with Betadine and alcohol. Using sterile technique. A Jaimes needle was used to access the port. A blood return was accomplished. The port was flushed with 10 cc of saline and 10 cc of heparin solution and the needle was removed. It functioned well and there were no complications. It will be flushed again in a week's if this is not done in [facility] onc[facility]. 09/21/2023 Alopecia (ICD-10 - L65.9) She continues to wear a blond wig. 09/28/2023 Back pain (ICD-10 - M54.9) Her acute low back pain has resolved and she was comfortable today. 10/05/2023 Back pain (ICD-10 - M54.9) Her acute low back pain has resolved and she was comfortable today. 11/18/2023 Primary insomnia (ICD-10 - F51.01) This has begun to improve with her medications. 12/29/2023 Back pain (ICD-10 - M54.9) Her acute low back pain has resolved and she was comfortable today. 02/09/2024 Underweight (ICD-10 - R63.6) Her body mass index is now 18. We have discussed diet and nutrition at length. 03/22/2024 Alopecia (ICD-10 - L65.9) She continues to wear a blond wig. 05/03/2024 Port-a-cath in place (ICD-10 - Z95.828) The skin over the port was cleaned with Betadine and alcohol. Using sterile technique. A Jaimes needle was used to access the port. A blood return was accomplished. The port was flushed with 10 cc of saline and 10 cc of heparin solution and the needle was removed. It functioned well and there were no complications. It will be flushed again in a week's if this is not done in [facility] oncology. 06/09/2024 Port-a-cath in place (ICD-10 - Z95.828) The skin over the port was cleaned with Betadine and alcohol. Using sterile technique. A Jaimes needle was used to access the port. A blood return was accomplished. The port was flushed with 10 cc of saline and 10 cc of heparin solution and the needle was removed. It functioned well and there were no complications. It will be flushed again in a week's if this is not done in [facility] onc[facility]. 08/21/2023 Back pain (ICD-10 - M54.9) Her acute low back pain has resolved and she was comfortable today. 09/02/2023 Back pain (ICD-10 - M54.9) Her acute low back pain has resolved and she was comfortable today. 09/16/2023 Alopecia (ICD-10 - L65.9) She continues to wear a blond wig. 09/21/2023 Primary insomnia (ICD-10 - F51.01) She has begun to respond to the sertraline. She is sleeping some at night. Current therapy was continued with close follow-up. 09/28/2023 Primary insomnia (ICD-10 - F51.01) She has begun to respond to the sertraline. She is sleeping some at night. Current therapy was continued with close follow-up. 10/05/2023 Port-a-[address] in place (ICD-10 - Z95.828) The skin over the port was cleaned with Betadine and alcohol. Using sterile technique. A Jaimes needle was used to access the port. A blood return was accomplished. The port was flushed with 10 cc of saline and 10 cc of heparin solution and the needle was removed. It functioned well and there were no complications. It will be flushed again in a week's if this is not done in [facility]. 11/18/2023 Reactive depression (ICD-10 - F32.9) I believe she is beginning to respond. She will continue on her current medicatioons. 12/29/2023 Reactive depression (ICD-10 - F32.9) I believe she is beginning to respond. She will continue on her current medicatioons. 02/09/2024 Back pain (ICD-10 - M54.9) Her acute low back pain has resolved and she was comfortable today. 03/22/2024 Reactive depression (ICD-10 - F32.9) I believe she is beginning to respond. She will continue on her current medicatioons. 06/09/2024 Underweight (ICD-10 - R63.6) Her body mass index is now 19. We have discussed diet and nutrition at length. 08/21/2023 Primary insomnia (ICD-10 - F51.01) She will continue on the clonazepam. I will add trazodone if necessary for the antidepressant effect. 09/02/2023 Primary insomnia (ICD-10 - F51.01) She will no longer take clonazepam in the morning. She will take 2 mg of that medication at night with 150 mg and trazodone. She is also on 50 mg of sertraline to treat depression. She will be followed carefully. 09/16/2023 Back pain (ICD-10 - M54.9) Her acute low back pain has resolved and she was comfortable today. 09/21/2023 Moderate depressive disorder (ICD-10 - F32.A) 09/28/2023 Reactive depression (ICD-10 - F32.9) I believe she is beginning to respond. She will continue on her current medicatioons. 10/05/2023 Primary insomnia (ICD-10 - F51.01) This has begun to improve with her medications. 11/18/2023 Underweight (ICD-10 - R63.6) Her body mass index is now 19.We have discussed diet and nutrition at length. 12/29/2023 Underweight (ICD-10 - R63.6) Her body mass index is now 18. We have discussed diet and nutrition at length. 02/09/2024 Primary insomnia (ICD-10 - F51.01) This has begun to improve with her medications. 03/22/2024 Underweight (ICD-10 - R63.6) Her body mass index is now 18. We have discussed diet and nutrition at length. 09/16/2023 Primary insomnia (ICD-10 - F51.01) I think she has an agitated depression. She will continue on 100 mg of sertraline 100 mg trazodone every night. She will stop the clonazepam and take zolpidem 12/29/2023 Encounter for care related to Port-a-Cath (ICD-10 - Z45.2) 03/22/2024 Port-a-cath in place (ICD-10 - Z95.828) The skin over the port was cleaned with Betadine and alcohol. Using sterile technique. A Jaimes needle was used to access the port. A blood return was accomplished. The port was flushed with 10 cc of saline and 10 cc of heparin solution and the needle was removed. It functioned well and there were no complications. It will be flushed again in a week's if this is not done in [facility] onc[facility]. 09/16/2023 Moderate depressive disorder (ICD-10 - F32.A) Agitated depression is beginning to resolve and she is starting to be able to sleep. 03/22/2024 Low back pain (ICD-10 - M54.5) This is likely due to the urinary tract infection. If it doesn't resolve in another cause will be sought. Plan Of Treatment Pending Test Test Name Order Date PROFILE, RANDOM (COMPREHENSIVE METABOLIC ) 01/21/2022 PROFILE, RANDOM (COMPREHENSIVE METABOLIC ) 05/20/2022 PROFILE, RANDOM (COMPREHENSIVE METABOLIC ) 10/09/2021 PROFILE, RANDOM (COMPREHENSIVE METABOLIC ) 04/09/2022 PROFILE, RANDOM (COMPREHENSIVE METABOLIC ) 07/01/2022 PROFILE, RANDOM (COMPREHENSIVE METABOLIC ) 09/11/2021 PROFILE, RANDOM (COMPREHENSIVE METABOLIC ) 01/02/2022 CBC w DIFF 01/21/2022 CBC w DIFF 05/20/2022 CBC w DIFF 10/09/2021 CBC w DIFF 04/09/2022 CBC w DIFF 07/01/2022 CBC w DIFF 09/11/2021 CA 125 04/09/2022 CA 125 07/01/2022 CA 125 09/11/2021 CA 125 01/21/2022 CA 125 05/20/2022 CA 125 10/09/2021 US RENAL BILATERAL 07/04/2019 US URINARY BLADDER 07/04/2019 PORTACATH INSERTION 11/24/2018 Next Appt Details Provider Name:Gerber Meier, 07/21/2024 10:30:00 AM, [address] [place] [address] , [facility] [address], [place], [address], Insurance Providers Payer Name Payer Address Payer Phone Subscriber Number Group Number Insured Name Patient Relationship to Insured Coverage Start Date Coverage End Date MEDICARE NGS [address] [place] [address] [id number] Jessica Murray Self - patient is the insured [facility] [address] [place], [place] [phone] [id number] Jessica Murray Self - patient is the insured Medical (General) History Medical History History ICD Code ovarian cancer stage III 2001, 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
--- OUTSIDE RECORDS SUMMARY | 2024-06-10 10:37 | XMS_ITS ---
Author Organization Gerber Meier III, MD Address [address] [address] Care Team Providers Care Clinical Microbiologist Name Role Phone Gerber Meier Primary Care Provider [phone] REASON FOR VISIT Refills Medications Medication SIG (Take, Route, Frequency, Duration) Notes Start Date End Date Status Zolpidem Tartrate 10 MG 1 tablet Orally every night at bedtime for 90 days 04/26/2024 10/23/2024 Active Nitrofurantoin Macrocrystal 50 MG TAKE 1 CAPSULE ONCE DAILY WITH FOOD OR MILK Active Prochlorperazine Maleate 10 MG TAKE ONE TABLET BY MOUTH EVERY 6 HOURS NEEDED FOR NAUSEA Oral Active Rubraca 250 MG 2 tablets Orally Twice a day 03/22/2024 Active Zolpidem Tartrate 10 MG 1 tablet at bedt tere as needed Orally Once a day 11/18/2023 Active Sertraline HCl 50 MG 1 tablet Orally Onc e a day 08/28/2023 Active cloNIDine HCl 0.3 MG 2 tablets Orally at bedtime 10/05/2023 Active Zejula 100 MG Oral Active traZODone HCl 100 MG 1 tablet at bedtime Orally Once a day 08/24/2023 Active Sertraline HCl 100 MG 1 tablet Orally On ce a day 09/09/2023 Active Lidocaine-Prilocaine 2.5-2.5 % as directed Externally apply over portacath 1 hour prior to treatment time Active Mirtazapine 30 MG 1 tablet before bedtime every evening Orally Once a day Active Estradiol 0.1 MG/GM USE 1GM VAGINALLY ONCE DAILY THURSDAY THROUGH THURSDAY as needed Active Social History Sex Assigned At : Social History Observation Description Sex Assigned At Female Encounters Encounter Location Date Provider Diagnosis Gerber Meier III, MD [address] [place] [address] [place] [address] 04/26/2024 Gerber Meier Ovarian cancer C56.9 Assessments Encounter Date Diagnosis (ICD Code) Assessment Notes Treatment Notes Treatment Clinical Notes 04/26/2024 Ovarian cancer (ICD-10 - C56.9) She has resumed taking her oral medication.There is no sign of progressive disease on today's examination.Her alopecia has resolved. Her weight is stable at 109 pounds. Plan Of Treatment Medication Medication Name Sig Start Date Stop Date Notes Zolpidem Tartrate 10 MG 1 tablet Orally every night at bedtime for 90 days 04/26/2024 10/23/2024 Next Appt Details Provider Name:Gerber Meier, 07/21/2024 10:30:00 AM, [address] [place] [address] [address] [place], [place], [address], Progress Notes * Jessica MURRAY ADOB: 9 (83 yo F)Acc No.[id number]:04/26/2024 Patient:?Ketan MURRAYly A :1940???Age:83 Y???Sex:Female Address:[address] [place] [address] [address], [place] [address] * Refills? Refill Zolpidem Tartrate Tablet, 10 MG, Orally, 90, 1 tablet, every night at bedtime, 90 days, Refills=1 Subjective: * Chief Complaints: * ???Refills * Medical History:? * Surgical History:? * Hospitalization/Major Diagno stic Procedure:? * Medications:?TakingEstradiol 0.1 MG/GM Cream USE 1GM VAGINALLY ONCE DAILY THURSDAY THROUGH THURSDAY , Notes to Pharmacist: as neededMirtazapine 30 MG Tablet 1 tablet before bedtime every evening Orally Once a day Lidocaine-Prilocaine 2.5-2.5 % Cream as directed Externally apply over portacath 1 hour prior to treatment time Sertraline HCl 100 MG Tablet 1 tablet Orally Once a day cloNIDine HCl 0.3 MG Tablet 2 tablets Orally at bedtime Sertraline HCl 50 MG Tablet 1 tablet Orally Once a day traZODone HCl 100 MG Tablet 1 tablet at bedtime Orally Once a day Zejula 100 MG Tablet Oral Prochlorperazine Maleate 10 MG Tablet TAKE ONE TABLET BY MOUTH EVERY 6 HOURS NEEDED FOR NAUSEA Oral Nitrofurantoin Macrocrystal 50 MG Capsule TAKE 1 CAPSULE ONCE DAILY WITH FOOD OR MILK Zolpidem Tartrate 10 MG Tablet 1 tablet at bedtime as needed Orally Once a day Rubraca 250 MG Tablet 2 tablets Orally Twice a day Taking Estradiol 0.1 MG/GM Cream USE 1GM VAGINALLY ONCE DAILY THURSDAY THROUGH THURSDAY , Notes to Pharmacist: as neededTaking Mirtazapine 30 MG Tablet 1 tablet before bedtime every evening Orally Once a day Taking Lidocaine-Prilocaine 2.5-2.5 % Cream as directed Externally apply over portacath 1 hour prior to treatment time Taking Sertraline HCl 100 MG Tablet 1 tablet Orally Once a day Taking cloNIDine HCl 0.3 MG Tablet 2 tablets Orally at bedtime Taking Sertraline HCl 50 MG Tablet 1 tablet Orally Once a day Taking traZODone HCl 100 MG Tablet 1 tablet at bedtime Orally Once a day Taking Zejula 100 MG Tablet Oral Taking Prochlorperazine Maleate 10 MG Tablet TAKE ONE TABLET BY MOUTH EVERY 6 HOURS NEEDED FOR NAUSEA Oral Taking Nitrofurantoin Macrocrystal 50 MG Capsule TAKE 1 CAPSULE ONCE DAILY WITH FOOD OR MILK Taking Zolpidem Tartrate 10 MG Tablet 1 tablet at bedtime as needed Orally Once a day Taking Rubraca 250 MG Tablet 2 tablets Orally Twice a day Not-Taking/PRNZolpidem Tartrate 10 MG Tablet 1 tablet at bedtime as needed Orally Once a day Not-Taking/PRN Zolpidem Tartrate 10 MG Tablet 1 tablet at bedtime as needed Orally Once a day Objective: * Vitals:? * Physical Examination:? Assessment: * Assessment: 1.?Ovarian cancer - C56.9??? Notes :She has resumed taking her oral medication.There is no sign of progressive disease on today's examination.Her alopecia has resolved. Her weight is stable at 109 pounds.??? Plan: * Treatment: * Procedure Codes:? * true * Date:? Generated for Kenneth menjivar/Jorge/Jose on:?06/10/2024 10:36 AM EST
--- OUTSIDE RECORDS SUMMARY | 2024-06-10 10:37 | XMS_ITS | Continuity of Care Document ---
Author Organization [facility] HOSTING ENGINEER Oncolog y Address [address] [place] [address] Care Team Providers Care Crown Pouncer Name Role Phone Renea DE LEON, Gerber Escalante Primary Care Physician Encounter [facility] Date(s): 05/04/24 - 06/03/24 [facility] HOST[facility] ENGINEER Oncology [address] [place] [address] [address] Encounter Type: Triage Allergies, Adverse Reactions, Alerts Substance Criticality Severity Reaction Reaction Severity Status sulfa drugs Skin rash Active Adhesive Bandage Redness Act manuelito Medications megestrol 40 mg/mL oral suspension 15 mL = 600 mg, By Mouth, Daily, # 450 mL, 0 Refills, Maintenance, 11/23/23 10:13:00 AM EDT, Suspension, [facility], Partial fill upon patient request if the prescription is for a schedule II opioid drug., 152.5, cm, 11/23/23 8:05:00 EDT, Height, 45.2, kg, 11/23/23 8:05:00 EDT, DryWeight Start Date: 11/23/23 Stop Date: 12/23/23 Status: Ordered Quantity: 450.0 Unit: mL Repeat number: 1 mirtazapine 30 mg oral tablet 1 tablet = 30 mg, By Mouth, Daily at bedtime, # 30 tablet, 0 Refills, Maintenance, 09/25/22 1:37:00 PM EDT, Tablet, Partial fill upon patient request if the prescription is for a schedule II opioid drug. Start Date: 09/25/22 Status: Ordered Quantity: 30.0 Unit: tablet Repeat number: 1 prochlorperazine 10 mg oral tablet 1 tablet = 10 mg, By Mouth, Every 6 hours, PRN Nausea, # 30 tablet, 2 Refills, Maintenance, 249:58:00 AM EDT, Tablet, [facility], Partial fill upon patient request if the prescription is for a schedule II opioid drug., 152.1, cm, 10/23/23 9:47:00 EDT, Height, 50.2, kg, 10/23/23 9:47:00 EDT, Dry Weight Start Date: 10/23/23 Status: Ordered Quantity: 30.0 Unit: tablet Repeat number: 3 Readi-Cat 2 Smoothie Creamy Vanilla 2% oral suspension See Instructions, If scan in the am, drink 1st bottle night before & 2nd bottle 90 min before scan. If scan after 12p, drink 1st bottle by 8a & 2nd bottle 90 min before. If scan after 4p, drink 1st bottle 6hrs before & 90 minutes before scan, # 2 each, 0 Refills, Maintenance, 02/23/24 9:18:00 AM EDT, [facility], Partial fill upon patient request if the prescription isfor a schedule II opioid drug., If scan in the am, drink 1st bottle night before & 2nd bottle 90 min before scan. If scan after 12p, drink 1st bottle by 8a & 2nd bottle 90 min before. If scanafter 4p, drink 1st bottle 6hrs before & 90 minutes before scan, 155, cm, 01/21/24 10:03:00 EDT, Height, 47.1, kg, 02/23/24 9:11:00 EDT, Dry Weight Start Date: 02/23/24 Status: Ordered Quantity: 2.0 Unit: each Repeat number: 1 rucaparib 250 mg oral tablet 2 tablet = 500 mg, By Mouth, 2 times a day, # 120 tablet, 11 Refills, Maintenance, 04/13/24 8:53:00PM EDT, Tablet, [facility], Partial fill upon patient request if the prescription is for a schedule II opioid drug., 155, cm, 01/21/24 10:03:00 EDT, Height, 47.1, kg, 02/23/24 9:11:00 EDT, Dry Weight Start Date: 04/13/24 Status: Ordered Quantity: 120.0 Unit: tablet Repeat number: 12 Senna 8.6 mg oral tablet 17.2 mg, 2, tablet, By Mouth, Daily at bedtime, PRN, # 100 tablet, Refills 2, Tot. Refills 2, Maintenance, for constipation, 09/25/23 10:08:00 AM EDT, Route to Pharmacy Electronically, [facility] Tablet, Partial fill upon patient request if the prescription is for a schedule II opioid drug., 154.91, cm, 09/25/23 9:19:00 EDT, Height, 50.6, kg, 09/25/23 9:19:00 EDT, Dry Weight Start Date: 09/25/23 Status: Ordered Quantity: 100.0 Unit: tablet Repeat number: 3 Problem List Condition Confirmation Course Effective Dates Status H ealth Status Informant Anxiety Confirmed Active Hypertension Confirmed Active Oral thrush Confirmed Active Maintenance antineoplastic chemotherapy Confirmed Active Shingles rash Confirmed Active Insomnia Confirmed Active Ovarian ca Confirmed Active Social History Social History Type Response Smoking Status Former smoker, quit more than 30 days ago entered on: 09/25/22 Sex Sex Representation Female (finding) Patient Care team information Care Team Personnel Name: Gerber Meier MD Position: [facility] Physician - Oncology Member Role: PCP Address: [address] [place] [address] [address] Gerber Meier III, [place] [address]- Telecom: Name: Erika Amor RN Position: [facility] Onco RN Member Role: Primary Care Nurse Name: Merna Canchola RN Position: [facility] Onco RN Member Role: Primary Care Nurse Care Team Related Persons Name: CHRISTIANO RASHID Insurance Providers Guarantor name: ANTOLIN KATYA Health Plan Information #: 1 Payer: MEDICARE PART B OUTPT Member Number: NA Policy Number: NA Group Number: NA Health Plan Information #: 2 Payer: MEDEX Member Number: NA Policy Number: NA Group Number: NA
--- OUTSIDE RECORDS SUMMARY | 2024-06-10 10:37 | XMS_ITS | Continuity of Care Document ---
Author Organization [facility] STROBOSCOPE OPERATOR Oncolog y Address [address] [place] [address]- Care Team Providers Care Supervisor Fur Dressing Name Role Phone Renea DE LEON, Gerber Escalante Primary Care Physician [phone] Encounter [id number] [id number] Date(s): 05/30/24 - 05/30/24 [facility] STROBOSCOPE OPERATOR Oncology [address] [place], [place] [address] Encounter Type: Results Only Allergies, Adverse Reactions, Alerts Substance Criticality Severity [...] Nausea, # 30 tablet, 2 Refills, Maintenance, 5/10/249:58:00 AM EDT, Tablet, [facility] [...] 11 Refills, Maintenance, 04/13/24 8:53:00PM EDT, Tablet, [facility], Partial fill upon patient request [...] Team Personnel Name: Gerber Meier MD Position: [facility] Physician - Oncology Member Role: PCP Address: [address] [place] [address] [address] Gerber Meier III, [place] [address] Telecom: Name: Erika Amor RN Position: [facility] Onco RN Member Role: Primary Care Nurse Name: Merna Canchola RN Position: [facility] Onco RN Member Role: Primary Care Nurse Care Team Related Persons Name: CHRISTIANO RASHID Insurance Providers Guarantor name: ANTOLIN ALDANA Health Plan Information #: 1 Payer: MEDICARE PART B OUTPT Member Number: NA Policy Number: NA Group Number: NA Health Plan Information #: 2 Payer: MEDEX Member Number: NA Policy Number: NA Group Number: NA
--- OUTSIDE RECORDS SUMMARY | 2024-06-10 10:37 | XMS_ITS ---
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 Name Role Phone Gerber Meier Primary Care Provider Allergies Allergen (clinical drug ingredient) Drug/Non Drug Allergy documented on EMR Reaction Allergy Type Onset Date Status sulfacetamide Sulfacetamide Unknown Drug Allergy Active REASON FOR VISIT Advanced ovarian cancer, Port-A-Cath flush, Insomnia, Impression Medications Medication SIG (Take, Route, Frequency, Duration) Notes Start Date End Date Status Zolpidem Tartrate 10 MG 1 tablet Orally every night at bedtime 04/26/2024 Active Lidocaine-Prilocaine 2.5-2.5 % as directed Externally apply over portacath 1 hour prior to treatment time Active Lidocaine-Prilocaine 2.5-2.5 % as directed Externally Apply over Portacath 1 hour prior to treatment for 30 days 05/03/2024 04/28/2025 Active Estradiol 0.1 MG/GM USE 1GM VAGINALLY ONCE DAILY THURSDAY THROUGH THURSDAY as needed Active Rubraca 250 MG 2 tablets Orally Twice a day 03/22/2024 Active Sertraline HCl 50 MG 1 tablet Orally Onc e a day 08/28/2023 Active Zejula 100 MG Oral Active traZODone HCl 100 MG 1 tablet at bedtime Orally Once a day 08/24/2023 Active Nitrofurantoin Macrocrystal 50 MG TAKE 1 CAPSULE ONCE DAILY WITH FOOD OR MILK Active Prochlorperazine Maleate 10 MG TAKE ONE TABLET BY MOUTH EVERY 6 HOURS NEEDED FOR NAUSEA Oral Active cloNIDine HCl 0.3 MG 2 tablets Orally at bedtime 10/05/2023 Active Zolpidem Tartrate 10 MG 1 tablet at bedt tere as needed Orally Once a day 11/18/2023 Active Sertraline HCl 100 MG 1 tablet Orally On ce a day 09/09/2023 Active Mirtazapine 30 MG 1 tablet before bedtime every evening Orally Once a day Active Social History Tobacco Use: Social History Observation Description Date Details (start date - stop date) Former Smoker NA - NA Sex Assigned At : Social History Observation Description Sex Assigned At Female Tobacco Use/Smoking Question Answer Notes Patient is a former smoker How long has it been since you last smoked? > 10 years Additional Findings: Tobacco Non-User Ex-cigaret te smoker Vital Signs Temperature 98.3 degrees Fahrenheit 05/03/20 24 Blood pressure systolic 95 mm Hg 05/03/20 24 Blood pressure diastolic 57 mm Hg 024 Heart Rate 67 /min 05/03/2024 Height 61 in 05/03/2024 Weight 100 lbs 05/03/2024 BMI 18.89 kg/m2 05/03/2024 Encounters Encounter Location Date Provider Diagnosis Gerber Meier III, MD [address] [place] [address] [place] [address] 05/03/2024 Gerber Meier Ovarian cancer C56.9 ; Former smoker Z87.891 ; Back pain M54.9 and Port-a-cath in place Z95.828 Assessments Encounter Date Diagnosis (ICD Code) Assessment Notes Treatment Notes Treatment Clinical Notes 05/03/2024 Ovarian cancer (ICD-10 - C56.9) She is takingher oral medication.There is no sign of progressive disease on today's examination.Her alopecia has resolved. Her weight is stable at 100 pounds. 05/03/2024 Former smoker (ICD-10 - Z87.891) She has formulated a plan to prevent relapse in times of stress and illness. 05/03/2024 Back pain (ICD-10 - M54.9) Her acute low back pain has resolved and she was comfortable today. 05/03/[address]24 [address]-a-c[address] in place (ICD-10 - Z95.828) [...] week's if this is not done in [facility]. Plan Of Treatment Medication Medication Name Sig Start Date Stop Date Notes Zolpidem Tartrate 10 MG 1 tablet Orally every night at bedtime 04/26/2024 Lidocaine-Prilocaine 2.5-2.5 % as direct ed Externally apply over portacath 1 hour prior to treatment time Lidocaine-Prilocaine 2.5-2.5 % as direct ed Externally Apply over Portacath 1 hour prior to treatment for 30 days 05/03/2024 04/28/2025 Estradiol 0.1 MG/GM USE 1GM VAGINALLY ON CE DAILY THURSDAY THROUGH THURSDAY as needed Rubraca 250 MG 2 tablets Orally Twi ce a day 03/22/2024 Sertraline HCl 50 MG 1 tablet Orally Onc e a day 08/28/2023 Zejula 100 MG Oral traZODone HCl 100 MG 1 tablet at bedtime Orally Once a day 08/24/2023 Nitrofurantoin Macrocrystal 50 MG TAKE 1 CAPSULE ONCE DAILY WITH FOOD OR MILK Prochlorperazine Maleate 10 MG TAKE ONE TABLET BY MOUTH EVERY 6 HOURS NEEDED FOR NAUSEA Oral cloNIDine HCl 0.3 MG 2 tablets Orally at bedtime 10/05/2023 Zolpidem Tartrate 10 MG 1 tablet at bedt tere as needed Orally Once a day 11/18/2023 Sertraline HCl 100 MG 1 tablet Orally On ce a day 09/09/2023 Mirtazapine 30 MG 1 tablet before bedt tere every evening Orally Once a day Next Appt Details Follow Up: 6 Weeks, Reason: OV, Flush Provider Name:Gerber Meier, 07/21/2024 10:30:00 AM, [address] [place] [address] [address] [address], [place], [address], Progress Notes * Jessica MURRAY ADOB: (83 yo F)Acc No.[id number]:05/03/2024 Patient:?Jessica MURRAY Provider:?Gerber Meier MD :1940???Age:83 Y???Sex:Female D ate:05/03/2024 Address:[address] [place] [address] [address], [facility] Subjective: * Chief Complaints: * ???Advanced ovarian cancerPo rt-A-Cath flushInsomniaImpression * HPI: ???COVID-19 Screening:?Questions?Have you experienced fever, chills, cough, sore throat, shortness of breath, difficulty breathing, muscle aches, loss of taste or smell??No ?Have you been exposed to the virus within the last 10 days??No ?Have you travelled internationally in the last 10 days??No ?Have you been exposed to COVID-19 in the past??No ???:? The patient, an 83-year-old female, has been living with ovarian cancer for a long time, with the second occurrence being eight years ago. She is currently on oral chemotherapy, which she takes twice a day. Occasionally, she experiences nausea, but it is not frequent and she has medication to manage it. She is due for another CAT scan on the 06 of July, which will be her third or fourth. The previous two scans showed similar results, indicating no significant changes. She has no trouble swallowing, although she experiences it once in a while. She has no back pain and no signs of infection. Her weight is stable. * ROS:?General/Constitutional:?pain?only normal aches and pains.?Chills?denies.?Fatigue?admits.?Fever?denies.?ENT:?Decreased hearing?mild.?Respiratory:?Cough?denies.?Cardiovascular:?Chest pain with exertion?denies.?Dyspnea on exertion?denies.?Shortness of breath?denies.?Gastrointestinal:?Constipation?occasional.?Decreased appetite?denies.?Diarrhea?denies.?Heartburn?denies.?Nausea?denies.?Rectal bleeding?denies.?Vomiting?denies.?Hematology:?bruising?denies.?petechiae?denies.?Swollen glands?none have been noted.?Genitourinary:?Frequent urination?a small amount.?Musculoskeletal:?Muscle aches?denies.?Painful joints?denies.?Sciatica?denies.?Weakness?denies.?Skin:?Itching?denies.?Rash?denies.?Skin lesion(s)?denies.?Neurologic:?Difficulty speaking?denies.?Dizziness?denies.?Headache?denies.?Low back pain?denies.?Psychiatric:?Depressed mood?which is mild.? * Medical History:? * Surgical History:?tubal liga tion 2 hysterectomy, total with bilateral salpingo-oophorectomy (BSO) 2002 Port-A-Cath insertion 2nd Port-A-Cath insertion 12/22/2019No history * Hospitalization/Major Diagno stic Procedure:?GI bleed rectal bleeding 09/04/2022No history * Family History:?Father: dece ased 55 yrs.?Mother: 86 yrs, natural causes.?Siblings: , all siblings except for one sister..?3 brother(s) , 3 sister(s) . .? Positive for diabetes. Also, she states that her sister has lung cancer. Her brother had colon cancer and another sister and aunt both had cancer of the liver. She has one living sister Migdalia Flores. She is not aware of any family history of mental illness or substance use disorder or addiction. * Social History:?Tobacco Use:?Tobacco Use/Smoking?Patient is a?former smoker ?How long has it been since you last smoked??> 10 years ?Additional Findings: Tobacco Non-User?Ex-cigarette smoker ???She was born in [place], [place]. 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 * Medications:?TakingEstradiol 0.1 MG/GM Cream USE 1GM [...] Tablet 2 tablets Orally Twice a day Zolpidem Tartrate 10 MG Tablet 1 tablet Orally every night at bedtime , stop date 10/23/2024Medication List reviewed and reconciled with the patientTaking Estradiol 0.1 MG/GM Cream USE 1GM VAGINALLY [...] 2 tablets Orally Twice a day Taking Zolpidem Tartrate 10 MG Tablet 1 tablet Orally every night at bedtime , stop date 10/23/2024Medication List reviewed and reconciled with the patient * Allergies:?Sulfacetamideno[A llergies Verified] Objective: * Vitals:?Ht: 61, Wt:100, BMI: 18.89, BP:95/57, HR:67, Temp:98.3, Ht-cm: 154.94, Wt-k.36. * Examination: ???General Examination: ?GENERAL APPEARANCE:?pleasant, well nourished, well developed, in no acute distress, calm and relaxed, underweight, elderly woman.?HEAD:?atraumatic, normocephalic.?EYES:?eomi, perrla, anicteric, conjugate.?EARS:?normal.?NOSE:?septum intact.?ORAL CAVITY:?normal, unremarkable.?NECK/THYROID:?no jugular venous distention, no carotid bruit, thyroid normal.?LYMPH NODES:?no enlarged lymph nodes,spleen normal.?SKIN:?no suspicious lesions, anicteric.?HEART:?no clicks, gallops, murmurs, or rubs, regular rhythm, S1, S2 normal, no s3, or vascular bruits.?LUNGS:?clear to auscultation .?BREASTS:?Not examined.?ABDOMEN:?bowel sounds normal, no ascites, no organomegaly, no mass.?RECTAL EXAM:?not examined.?MUSCULOSKELETAL:?extremities unremarkable, no clubbing, cyanosis or edema, Decreased range of motion lumbar spine.?PERIPHERAL PULSES:?normal.?NEUROLOGIC:?alert and oriented, cranial nerves 2-12 grossly intact, deep tendon reflexes 2+ symmetrical, motor strength normal upper and lower extremities, sensory exam intact.?PSYCH:?alert, oriented.? Assessment: * Assessment: 1.?Ovarian cancer - C56.9 (P nikolas)???Notes :She is takingher oral medication.There is no sign of progressive disease on today's examination.Her alopecia has resolved. Her weight is stable at 100 pounds.???2.?Former smoker - Z87.891???Notes :She has formulated a plan to prevent relapse in times of stress and illness.???3.?Back pain - M54.9???Notes :Her acute low back pain has resolved and she was comfortable today.???4.?Port-a-cath in place - Z95.828???Notes :The skin over the port was cleaned with [...] week's if this is not done in [facility].??? Plan: * Treatment: 2.?Others? Continue cloNIDine HCl Tablet, 0.3 MG, 2 tablets, Orally, at bedtime;?Continue Sertraline HCl Tablet, 50 MG, 1 tablet, Orally, Once a day;?Continue traZODone HCl Tablet, 100 MG, 1 tablet at bedtime, Orally, Once a day;?Continue Zejula Tablet, 100 MG, Oral;?Continue Prochlorperazine Maleate Tablet, 10 MG, TAKE ONE TABLET BY MOUTH EVERY 6 HOURS NEEDED FOR NAUSEA, Oral;?Continue Nitrofurantoin Macrocrystal Capsule, 50 MG, TAKE 1 CAPSULE ONCE DAILY WITH FOOD OR MILK.?? * Procedures:?The skin over the port was cleaned with Betadine and alcohol. Sterile technique was used. A Jaimes needle was used to access the port. It was flushed with saline and then with heparin solution. The needle was then withdrawn. No complcations occurred. A good blood return was obtained. ? * Procedure Codes:?85159 REFIL L/MAINT PUMP/RESVR [id number] INJECTION HEPARIN SODIUM 10 [id number] SALINE SOLUTION * Preventive Medicine:? ??Counseling:?Care goal follow-up plan:?Counseling for abnormal BMI given?Yes ?Below Normal BMI Follow-up?Dietary education for weight gain, Dietary management education, guidance, and counseling, Feeding regime, Lifestyle education regarding diet, Nutrition / feeding management, Prescribed diet education, Special diet education, Intervention, Order not done: Medical or Other reason not done ?Smoking/Tobacco Use?Patient counseled on the dangers of tobacco use and urged to quit.?05/04/2024 * Follow Up:?6 Weeks (Reason: OV, Flush) * Images: * Sign off status: Completed true * Provider:?Gerber Meier MD Date:?04/15 Generated for Printi ng/Jorge/eTransmitting on:?06/10/2024 10:36 AM EST History and Physical Notes * HPI (History of Present Illness) Category Sub-Category Detail Notes COVID-19 Screening Questions Have you had any new onset fever, chills, cough, congestion, sore throat, shortness of breath, muscle aches?: No Have you been exposed to the virus withi n the last 10 days?: No Have you travelled internationally in e last 10 days?: No Have you been exposed to COVID-19 in the past?: No Examination Category Sub-Category Detail Notes General Examination GENERAL APPEARANCE: pleasant , well nourished, well developed, in no acute distress, calm and relaxed, underweight, elderly woman HEAD: atraumatic, normocep halic EYES: eomi, perrla, anicte constanza, conjugate EARS: normal NOSE: septum intact NECK/THYROID: no jugular venous di stention, no carotid bruit, thyroid normal HEART: no clicks, gallops, murmurs, or rubs, regular rhythm, S1, S2 normal, no s3, or vascular bruits LUNGS: clear to auscultatio n ABDOMEN: bowel sounds normal, no ascites, no organomegaly, no mass NEUROLOGIC: alert and oriented, cranial nerves 2-12 grossly intact, deep tendon reflexes 2+ symmetrical, motor strength normal upper and lower extremities, sensory exam intact SKIN: no suspicious lesion s, anicteric PERIPHERAL PULSES: normal BREASTS: Not examined MUSCULOSKELETAL: extremities unremark able, no clubbing, cyanosis or edema, Decreased range of motion lumbar spine LYMPH NODES: no enlarged lymph no sherin,spleen normal RECTAL EXAM: not examined PSYCH: alert, oriented ORAL CAVITY: normal, unremarkable
--- NOTE | 2024-06-10 11:01 | A.OFFPSYCH_ITS ---
Intake Vital Signs 06/10/24 11:02 Weight 45.813 kg Intake Visit Reasons: depression Allergies Sulfa (Sulfonamide Antibiotics) [Sulfa (Sulfonamides)] Allergy (Mild, Verified 09/04/22 09:04) RASH HPI- Psychiatric Chief Complaint: depression HPI Narrative: Pt seen in psych f/u has been stable on rubraca mirtazapine clonidine . Patient social engage feels quite supported by her family and friends. Is being treated for metastatic ovarian cancer has been stable with this now for a number of years. Continues to feel she has a reasonably good quality of life no complaints of side effects Past Psychiatric History: The patient has a long history of anxiety depression and insomnia. She has been stable for an extended period of time. She has also had chronic problems with insomnia. Patient was on Paxil in the past Mental Status Exam Mental Status Exam Narrative: Mental Status Exam Narrative: Normal gait Appearance: Casually dressed Behavior: Cooperative appropriate psychomotor: Within normal limits Speech: Normal volume and prosody Thought proccess logical and goal-directed Thought content: Future oriented appropriate concerns about her medical condition Mood: Mildly apprehensive Affect: Appropriate to mood SI:denies HI:denies VH/AH:none Delusions: None Insight/judgment: Good insight and judgment patient does understand that she is coming perhaps toward the end of treatment for her cancer appears to be making peace with this ongoing Memory/cog: Intact Assessment and Plan Assessment & Plan (1) Major depression in complete remission: Status: Acute Code(s): F32.5 - Major depressive disorder, single episode, in full remission (2) Generalized anxiety disorder: Status: Acute Code(s): F41.1 - Generalized anxiety disorder Plan Continue sertraline mirtazapine trazodone at bedtime states she does not feel overly sedated morning Medications: New trazodone 100 mg PO BEDTIME 90 tabs 1RF sertraline 100 mg PO DAILY 90 tabs 1RF Refilled mirtazapine 30 mg PO BEDTIME 90 tabs 1RF Counseling and coordination of Care Diagnosis and Prognosis Counseling: Adequacy of current interventions Details: I spent [30] minutes reviewing the record, seeing the patient and documenting in the medical record. Counseling provided to the patient/caregiver as outlined below. Addressed patient/caregiver concerns regarding current medication regime including effective adherence. Addressed patient/caregiver concerns regarding diagnosis and prognosis including accuracy of diagnosis, prognosis over time, impact of diagnosis. Addressed patient/caregiver concerns regarding impact of recent stressors. 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
== END 2024-06-10 12:12 | disposition home or self-care (01) ==
LOC: HO.HOP 10:34
PROVIDERS: PCP Internal Medicine Medical Oncology; Visit Provider Psychiatry & Neurology Psychiatry
DX: F32.5 Major depressive disorder, single episode, in full remission (principal); F41.1 Generalized anxiety disorder
CPT/HCPCS: 99214

== ENCOUNTER → 2024-06-10 10:34 | Outpatient (BNVA) | payer MEDICARE, SELFPAY | PROVIDERS: PCP Internal Medicine Medical Oncology; Visit Provider Psychiatry & Neurology Psychiatry | DX: F32.5 Major depressive disorder, single episode, in full remission (principal); F41.1 Generalized anxiety disorder; Z71.89 Other specified counseling | CPT/HCPCS: 99212 ==

== ENCOUNTER 2025-01-06 10:13 | Outpatient (AMB) | payer MEDICARE, SELFPAY ==
--- OUTSIDE RECORDS SUMMARY | 2024-11-08 08:51 | XMS_ITS ---
Author Organization Gerber Meier III, MD Address [address] [place] [address] [facility] [place] [address] Care Team Providers Care Referral Rn Name Role Phone Gerber Meier Primary Care Provider Medications Medication SIG (Take, Route, Frequency, Duration) Notes Start Date End Date Status Ciprofloxacin HCl 250 MG 1 tablet Orally every 12 hrs for 7 days 11/08/2024 11/15/2024 Active Social History Sex Assigned At : Social History Observation Description Sex Assigned At Female Encounters Encounter Location Date Provider Diagnosis Gerber Meier III, MD [address] [place] [address] [place] [address] 11/08/2024 Gerber Meier Plan Of Treatment Medication Medication Name Sig Start Date Stop Date Notes Ciprofloxacin HCl 250 MG 1 tablet Orally every 12 hrs for 7 days 11/08/2024 11/15/2024 Next Appt Details Provider Name:Gerber Meier, 02/28/2025 10:15:00 AM, [address] [place] [address] [place], [address], Progress Notes * Jessica MURRAY ADOB: [birth year] (84 yo F)Acc No.[id number]:11/08/2024 Patient: Toshai Jessica GUZMAN :1940 A ge:84 Y S ex:Female Address:[address] [place] [address] , [address], [place] [address] * Refills Start Ciprofloxacin HCl Tablet, 250 MG, Orally, 14 Tablet, 1 tablet, every 12 hrs, 7 days, Refills=0 * true * Date: Generated for Kenneth menjivar/Jorge/Christinaitting on: 0 01/06/2025 10:29 AM EDT
--- OUTSIDE RECORDS SUMMARY | 2025-01-06 10:29 | XMS_ITS | Patient Health Record ---
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 Name Role Phone Selam Edmond DO Primary Care Provider Santiago Sandoval Jr Unavailable [phone] Ghassan Taylor Unavailable Unavailable Allergies Allergen (clinical drug ingredient) Drug/Non Drug Allergy documented on EMR Reaction Allergy Type Onset Date Status Sulfa Unknown Drug Allergy Active Reason For Referral No Information Medications Medication SIG (Take, Route, Frequency, Duration) Notes Start Date End Date Status LORazepam 1mg Active Amlodipine & Diet Manage Prod 5mg 06/15/2024 06/15/2024 Active Alendronate Sodium 70mg Active Premarin 0.625mg Act manuelito MoviPrep 100 GM as directed Orally 09/03/2012 Active Generlac 10g/15ml 06/15/2024 06/15/2024 Active Mirtazapine 300mg Ac tive traZODone HCl 100mg Active cloNIDine HCl 0.3mg Active Simvastatin 40mg Act manuelito clonazePAM 1mg Activ e Problems Problem Type SNOMED Code ICD Code Onset Dates Problem Status W/U Status Risk Notes Problem Constipation (564.00) Active confirmed Problem Family History of Cancer of Colon (Situation) (387909203) Family history of colon cancer (V16.0) Active confirmed Plan Of Treatment Future Test Test Name Order Date COLONOSCOPY 09/03/2012 Insurance Providers Payer Name Payer Address Payer Phone Subscriber Number Group Number Insured Name Patient Relationship to Insured Coverage Start Date Coverage End Date [place] [address] [place] [id number] ANTOLIN ALDANA Self - patient is the insured [employer] ATT[employer] CLAIMS [address] [place] [address] [id number] ANTOLIN ALDANA Self - patient is the insured Medical (General) History Medical History History ICD Code colonoscopy 08/20/2007 Ovarian cancer stage 3 hypertension carotid artery disease Surgical History Surgery Date(Month/Year) hysterectomy appendectomy tonsillectomy
--- NOTE | 2025-01-06 10:52 | A.OFFPSYCH_ITS ---
Intake Intake Visit Reasons: depression Allergies Sulfa (Sulfonamide Antibiotics) (Sulfa (Sulfonamides)) Allergy (Mild, Verified 09/04/22 09:04) RASH Medication List - Last Reconciled 01/06/25 by Dami Eason MD ascorbic acid (vitamin C) 1,000 mg PO DAILY clonidine HCl 0.3 mg PO BEDTIME estradiol 0.01%(0.1mg/gram) grams vaginal mirtazapine 30 mg PO BEDTIME nitrofurantoin macrocrystal 50 mg PO DAILY peg 3350-electrolytes 236-22.74-6.74 -5.86 gram (Golytely) 240 mL PO Q10M rucaparib (Rubraca) 500 mg PO BID sertraline 100 mg PO DAILY trazodone 100 mg PO BEDTIME zolpidem 10 mg PO BEDTIME HPI- Psychiatric Chief Complaint: depression HPI Narrative: Patient seen psychiatric follow-up. The patient's mood has been stable she has been responding to a new treatment for ovarian metastatic cancer and seems generally to be stable. She does deal with infertility issues but has an extensive support system a sense of gratitude. Her insomnia has significantly improved. She remains on mirtazapine clonidine at bedtime which she tolerates and has help with blood pressure and anxiety and insomnia. PHQ-9 and RICHARD unremarkable Past Psychiatric History: The patient has a long history of anxiety depression and insomnia. She has been stable for an extended period of time. She has also had chronic problems with insomnia. Patient was on Paxil in the past Mental Status Exam Mental Status Exam Narrative: Mental Status Exam Narrative: Normal gait Appearance: Casually dressed Behavior: Cooperative appropriate psychomotor: Within normal limits Speech: Normal volume and prosody Thought proccess logical and goal-directed Thought content: Future oriented focused on healthy strategies Mood: Good Affect: Appropriate to mood full affect SI:denies HI:denies VH/AH:none Delusions: None Insight/judgment: Good insight and judgment patient does understand she has a potentially terminal condition but has manage this for an extended period of time and is pleased that she appears to be responding to a new treatment that seems less toxic than previously. Memory/cog: Intact Assessment and Plan Assessment & Plan (1) Major depression in complete remission: Status: Acute Code(s): F32.5 - Major depressive disorder, single episode, in full remission (2) Generalized anxiety disorder: Status: Acute Code(s): F41.1 - Generalized anxiety disorder Plan Patient generally stable psychologically in physically has been managing metastatic ovarian cancer. Patient in social has good supports connected with her children grandchildren and friend support system. Patient stable we discussed having follow-up with her primary care ongoing. Told her this story writer is available as needed Patient with past history significant the past related to work stress Counseling and coordination of Care Details-Self Mgmt counseling: Issues related to chronic stress mortality Diagnosis and Prognosis Counseling: Adequacy of current interventions Details: I spent [30] minutes reviewing the record, seeing the patient and documenting in the medical record. Counseling provided to the patient/caregiver as outlined below. Addressed patient/caregiver concerns regarding current medication regime including effective adherence. Addressed patient/caregiver concerns regarding diagnosis and prognosis including accuracy of diagnosis, prognosis over time, impact of diagnosis. Addressed patient/caregiver concerns regarding impact of recent stressors. 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
== END 2025-01-06 11:39 | disposition home or self-care (01) ==
LOC: HO.HOP 10:13
PROVIDERS: PCP Internal Medicine Medical Oncology; Visit Provider Psychiatry & Neurology Psychiatry
DX: F32.5 Major depressive disorder, single episode, in full remission (principal); F41.1 Generalized anxiety disorder
CPT/HCPCS: 99214

== ENCOUNTER → 2025-01-06 10:13 | Outpatient (BNVA) | payer MEDICARE, SELFPAY | PROVIDERS: PCP Internal Medicine Medical Oncology; Visit Provider Psychiatry & Neurology Psychiatry | DX: F32.5 Major depressive disorder, single episode, in full remission (principal); F41.1 Generalized anxiety disorder; F17.210 Nicotine dependence, cigarettes, uncomplicated; C56.9 Malignant neoplasm of unspecified ovary; Z79.899 Other long term (current) drug therapy | CPT/HCPCS: 99212 ==

== ENCOUNTER 2025-03-15 09:57 | Outpatient (REF) | payer MEDICARE, SELFPAY ==
--- OUTSIDE RECORDS SUMMARY | 2025-02-27 07:07 | XMS_ITS ---
Author Organization Gerber Meier III, MD Address [address] [place] [address] [address] [facility] [facility] [place] [address] Care Team Providers Care Weigher Packing Name Role Phone Dr. Gerber Meier III Primary Care Provider [phone] REASON FOR VISIT need meds for UTI Medications Medication SIG (Take, Route, Frequency, Duration) Notes Start Date End Date Status Ciprofloxacin HCl 250 MG 1 tablet Orally every 12 hrs for 10 days 02/27/2025 03/09/2025 Active Social History Sex Assigned At : Social History Observation Description Sex Assigned At Female Encounters Encounter Location Date Provider Diagnosis Gerber Meier III, MD [address] [place] [address] [place] [address] 02/27/2025 Gerber Meier Plan Of Treatment Medication Medication Name Sig Start Date Stop Date Notes Ciprofloxacin HCl 250 MG 1 tablet Orally every 12 hrs for 10 days 02/27/2025 03/09/2025 Next Appt Details Provider Name:Gerber Meier , 05/05/2025 10:30:00 AM, [address] [place] [address] [place], [address], Progress Notes * Jessica MURRAY ADOB: 9 (84 yo F)Acc No.[id number]:02/27/2025 Patient: Toshia Jessica GUZMAN :1940 A ge:84 Y S ex:Female Address:[address] [place] [address] , [address], [place] [address] * Refills Start Ciprofloxacin HCl Tablet, 250 MG, Orally, 20 Tablet, 1 tablet, every 12 hrs, 10 days, Refills=0 * true * Date: Generated for Kenneth menjivar/Jorge/Jose on: 1 11:08 AM EDT
--- OUTSIDE RECORDS SUMMARY | 2025-02-27 11:10 | XMS_ITS ---
Author Organization Gerber Meier III, MD Address [address] [place] [address] [place] [address] Care Team Providers Care Gasoline Catalyst Operator Name Role Phone Dr. Gerber Meier III Primary Care Provider Medications Medication SIG (Take, Route, Frequency, Duration) Notes Start Date End Date Status levoFLOXacin 500 MG 1 tablet Orally Once a day for 10 days we are aware she recently had the same rx. 02/27/2025 03/09/2025 Active Social History Sex Assigned At : Social History Observation Description Sex Assigned At Female Encounters Encounter Location Date Provider Diagnosis Gerber Meier III, MD [address] [place] [address] [address] [facility] [place] [address] 02/27/2025 Gerber Meier Plan Of Treatment Medication Medication Name Sig Start Date Stop Date Notes levoFLOXacin 500 MG 1 tablet Orally Once a day for 10 days 02/27/2025 03/09/2025 we are aware she recently had the same rx. Next Appt Details Provider Name:Gerber Meier , 05/05/2025 10:30:00 AM, [address] [place] [address] [place], [address], Progress Notes * Jessica MURRAY ADOB: 9 (84 yo F)Acc No.[id number]:02/27/2025 Patient: Toshia Jessica GUZMAN :1940 A ge:84 Y S ex:Female Address:[address] [place] [address] [address], [place] [address] * Refills Start levoFLOXacin Tablet, 500 MG, Orally, 10, 1 tablet, Once a day, 10 days, Refills=0 * true * Date: Generated for Kenneth menjivar/Jorge/Jose on: 11:08 AM EDT
--- OUTSIDE RECORDS SUMMARY | 2025-02-28 13:00 | XMS_ITS ---
Author Organization Gerber Meier III, MD Address [address] [place] [address] [address] [facility] [facility] [place] [address] Care Team Providers Care Hand Assembler For Puller Over Name Role Phone Dr. Gerber Meier III Primary Care Provider REASON FOR VISIT Follow up Social History Sex Assigned At : Social History Observation Description Sex Assigned At Female Encounters Encounter Location Date Provider Diagnosis Gerber Meier III, MD [address] [place] [address] [address] [facility] [place] [address] 02/28/2025 Gerber Meier Plan Of Treatment Next Appt Details Provider Name:Gerber Meier , 05/05/2025 10:30:00 AM, [address] [place] [address] [place], [address], Progress Notes * Jessica MURRAY ADOB: 9 (84 yo F)Acc No.[id number]:02/28/2025 Patient: Jessica ALBRIGHT Provider: Yifan Meier MD :1940 A ge:84 Y S ex:Female Date:02/28/2025 Address:[address] [place] [address] , [address] [place], [place] [id number] Subjective: * Chief Complaints: * 1 . Follow up. * Medical History: Objective: * Vitals: Assessment: Plan: * Treatment: * Images: * The named appointment provid er may or may not be the originator of this progress note, and it is not deemed complete until electronically signed by the appointment provider. Sign off status: Pending * Provider: Yifan Meier MD Date: 0 02/28/2025 Generated for Kenneth menjivar/Jorge/Jose on: 1 11:08 AM EDT
--- OUTSIDE RECORDS SUMMARY | 2025-03-10 05:30 | XMS_ITS ---
Author Organization Gerber Meier III, MD Address [address] [place] [address] [place] [address] Care Team Providers Care Probation And Parole Officer Name Role Phone Dr. Gerber Meier III Primary Care Provider [phone] Allergies Allergen (clinical drug ingredient) Drug/Non Drug Allergy documented on EMR Reaction Allergy Type Onset Date Status sulfacetamide Sulfacetamide Unknown Drug Allergy Active REASON FOR VISIT Advanced ovarian cancer, Underweight, Port-A-Cath flush, Depression Medications Medication SIG (Take, Route, Frequency, Duration) Notes Start Date End Date Status Nitrofurantoin Macrocrystal 50 MG TAKE 1 CAPSULE ONCE DAILY WITH FOOD OR MILK Orally Once a day Active Mirtazapine 30 MG 1 tablet before bedt tere every evening Orally Once a day Active cloNIDine HCl 0.3 MG 2 tablets Orally at bedtime 10/05/2023 Active traZODone HCl 100 MG 1 tablet at bedtime Orally Once a day 08/24/2023 Active Sertraline HCl 100 MG 1 tablet Orally On a day 09/09/2023 Active Zolpidem Tartrate 10 MG TAKE 1 TABLET EV KEARA NIGHT AT BEDTIME Orally Once a day 03/07/2025 Active Ciprofloxacin HCl 250 MG 1 tablet Orally every 12 hrs 02/27/2025 Active Social History Tobacco Use: Social History [...] Non-User Ex-cigaret te smoker Vital Signs Temperature 97.9 degrees Fahrenheit 03/10/20 25 Blood pressure systolic 137 mm Hg 03/10/20 25 Blood pressure diastolic 78 mm Hg 025 Heart Rate 78 /min 03/10/2025 Height 61 in 03/10/2025 Weight 98 lbs 03/10/2025 BMI 18.51 kg/m2 03/10/2025 Encounters Encounter Location Date Provider Diagnosis Gerber Meier III, MD [address] [place] [address] DR HERMAN, [place]ON[place] [address] 03/10/2025 Gerber Meier Ovarian cancer C56.9 ; Former smoker Z87.891 ; Port-a-cath in place Z95.828 ; Reactive depression F32.9 and Underweight R63.6 Assessments Encounter Date Diagnosis (ICD Code) Assessment Notes Treatment Notes Treatment Clinical Notes 03/10/2025 Ovarian cancer (ICD-10 - C56.9) She was continued on the oral agent. 03/10/2025 Former smoker (ICD-10 - Z87.891) She has formulated a plan to prevent relapse in times of stress and illness. 03/10/2025 Port-a-cath in place (ICD-10 - Z95.828) The [...] week's if this is not done in [facility]. 03/10/2025 Reactive depression (ICD-10 - F32.9) I believe she is beginning to respond. She will continue on her current medicatioons. 03/10/2025 Underweight (ICD-10 - R63.6) Her weight is stable at 100 pounds with a body mass index of 18. This is likely normal for her at this time. We discussed diet and nutrition today. Plan Of Treatment Medication Medication Name Sig Start Date Stop Date Notes Nitrofurantoin Macrocrystal 50 MG TAKE 1 CAPSULE ONCE DAILY WITH FOOD OR MILK Orally Once a day Mirtazapine 30 MG 1 tablet before bedt tere every evening Orally Once a day cloNIDine HCl 0.3 MG 2 tablets Orally at bedtime 10/05/2023 traZODone HCl 100 MG 1 tablet at bedtime Orally Once a day 08/24/2023 Sertraline HCl 100 MG 1 tablet Orally On a day 09/09/2023 Zolpidem Tartrate 10 MG TAKE 1 TABLET EV KEARA NIGHT AT BEDTIME Orally Once a day 03/07/2025 Ciprofloxacin HCl 250 MG 1 tablet Orally every 12 hrs 02/27/2025 Next Appt Details Follow Up: 2 Months, Reason: OV, Flush Provider Name:Gerber Meier , 05/05/2025 10:30:00 AM, [address] [place] [address], [place] [address], [place], [address], Progress Notes * Jessica MURRAY ADOB: (84 yo F)Acc No.[id number]:03/10/2025 Patient: Jessica ALBRIGHT Provider: Yifan Meier MD :1940 A ge:84 Y S ex:Female Date:03/10/2025 Address:[address] [place] [address] [address], [facility] Subjective: * Chief Complaints: * A dvanced ovarian wmiioeZtcupwnzuevQdva-N-Illz flushDepression * HPI: C OVID-19 Screening: She returns for medical management every 2 months to manage her Port-A-Cath. The port was flushed today with saline and heparin. It functioned well. She recently had a urinary tract infection treated with an antibiotic. Her symptoms have resolved. Her main complaint today is the toxicity of her oral chemotherapy and generalized musculoskeletal weakness and lack of energy. Her ovarian cancer is controlled.Her alopecia has resolved. No new findings were present today. Comprehensive blood work is being done by [facility] at [facility]. Questions H ave you had any new onset fever, chills, cough, congestion, sore throat, shortness of breath, muscle aches? N o * ROS: G eneral/Constitutional: pain o nly normal aches and pains. C hills d enies.?Fatigue a dmits. F ever d enies. E NT: Decreased hearing m ild. R espiratory: Cough d enies. C ardiovascular: Chest pain with exertion d enies. D yspnea on exertion?with prolonged activity. S hortness of breath t hat is mild. G astrointestinal: Constipation d enies. D ecreased appetite t hat is associated with weight loss. D iarrhea d enies. H eartburn d enies. N ausea d enies. R ectal bleeding d enies. V omiting d enies. H ematology: bruising d enies. p etechiae d enies. S wollen glands n one have been noted. G enitourinary: Frequent urination a small amount. M usculoskeletal: Muscle aches d enies. P ainful joints d enies. S ciatica d enies. W eakness d enies. S kin: Itching d enies. R kimberly d enies. S kin lesion(s)?denies. N eurologic: Difficulty speaking d enies. D izziness d enies.?Headache d enies. L ow back pain t hat is chronic. P sychiatric: Depressed mood d enies. * Medical History: * Surgical History: t ubal ligation 2 hysterectomy, total with bilateral salpingo-oophorectomy (BSO) 2001 Port-A-Cath insertion 2nd Port-A-Cath insertion 12/22/2019No history * Hospitalization/Major Diagno stic Procedure: G I bleed rectal bleeding 09/04/2022No history * Family History: F ather: 55 yrs. M other: 86 yrs, natural causes. S iblings: alive.?3 brother(s) , 3 sister(s) . . Positive for diabetes. Also, she states that her sister has lung cancer. Her brother had colon cancer and another sister and aunt both had cancer of the liver. She has one living sister Migdalia Flores. She is not aware of any family history of mental illness or substance use disorder or addiction. * Social History: T obacco Use: T obacco Use/Smoking P atient is a f ormer smoker H ow long has it been since you last smoked??> 10 years A dditional Findings: Tobacco Non-User E x-cigarette smoker S he was born in [place], [place]. 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 * Medications: T akingNitrofurantoin Macrocrystal 50 MG Capsule TAKE 1 CAPSULE ONCE DAILY WITH FOOD OR MILK Orally Once a day Mirtazapine 30 MG Tablet 1 tablet before bedtime every evening Orally Once a day cloNIDine HCl 0.3 MG Tablet 2 tablets Orally at bedtime traZODone HCl 100 MG Tablet 1 tablet at bedtime Orally Once a day Sertraline HCl 100 MG Tablet 1 tablet Orally Once a day Zolpidem Tartrate 10 MG Tablet TAKE 1 TABLET EVERY NIGHT AT BEDTIME Orally Once a day Medication List reviewed and reconciled with the patientTaking Nitrofurantoin Macrocrystal 50 MG Capsule TAKE 1 CAPSULE ONCE DAILY WITH FOOD OR MILK Orally Once a day Taking Mirtazapine 30 MG Tablet 1 tablet before bedtime every evening Orally Once a day Taking cloNIDine HCl 0.3 MG Tablet 2 tablets Orally at bedtime Taking traZODone HCl 100 MG Tablet 1 tablet at bedtime Orally Once a day Taking Sertraline HCl 100 MG Tablet 1 tablet Orally Once a day Taking Zolpidem Tartrate 10 MG Tablet TAKE 1 TABLET EVERY NIGHT AT BEDTIME Orally Once a day Medication List reviewed and reconciled with the patient * Allergies: S constanza[Allergies Verified] Objective: * Vitals: H t: 61, Wt:98, BMI:18.51, BP:137/78, HR:78, Temp:97.9, Ht-cm: 154.94, Wt-k.45. * Examination: G eneral Examination: GENERAL APPEARANCE: p leasant, well nourished, well developed, in no acute distress, calm and relaxed: underweight: elderly woman. HEAD: a traumatic, normocephalic. EYES: e phoebe, perrla, anicteric, conjugate. EARS: n ormal. NOSE: s eptum intact. ORAL CAVITY: n ormal, unremarkable. NECK/THYROID: n o jugular venous distention, no carotid bruit, thyroid normal. LYMPH NODES: n o enlarged lymph nodes,spleen normal. SKIN: n o suspicious lesions, anicteric. HEART: n o clicks, gallops, murmurs, or rubs, regular rhythm, S1, S2 normal, no s3, or vascular bruits. LUNGS: c lear to auscultation, Port-A-Cath in place underskin of upper chest wall above the breast in good condition left chest wall. BREASTS: N ot examined. ABDOMEN: b owel sounds normal, no ascites, no organomegaly, no mass, Underweight, no mass palpable. RECTAL EXAM: n ot examined. MUSCULOSKELETAL: e xtremities unremarkable, no clubbing, cyanosis or edema. PERIPHERAL PULSES: n ormal. NEUROLOGIC: a lert and oriented, cranial nerves 2-12 grossly intact, deep tendon reflexes 2+ symmetrical, motor strength normal upper and lower extremities, sensory exam intact. PSYCH: a lert, oriented. Assessment: * Assessment: 1. O varian cancer - C56.9 (Primary) N otes :She was continued on the oral agent. 2 . F ormer smoker - Z87.891 N otes :She has formulated a plan to prevent relapse in times of stress and illness. 3 . P ort-a-cath in place - Z95.828 N otes :The skin over the port was cleaned [...] week's if this is not done in [facility]. 4 . R eactive depression - F32.9 N otes :I believe she is beginning to respond. She will continue on her current medicatioons. 5 . U nderweight - R63.6 N otes :Her weight is stable at 100 pounds with a body mass index of 18. This is likely normal for her at this time. We discussed diet and nutrition today. Plan: * Treatment: 2. O thers Continue Ciprofloxacin HCl Tablet, 250 MG, 1 tablet, Orally, every 12 hrs. * Procedures: T he skin over the port was cleaned with Betadine and alcohol. Sterile technique was used. A Jaimes needle was used to access the port. It was flushed with saline and then with heparin solution. The needle was then withdrawn. No complcations occurred. A good blood return was obtained. * Procedure Codes: 9 6522 REFILL/MAINT PUMP/RESVR [id number] INJECTION HEPARIN SODIUM 10 [id number] SALINE SOLUTION * Preventive Medicine: Counseling: C are goal follow-up plan: Counseling for abnormal BMI given Y es Below Normal BMI Follow-up D ietary education for weight gain, Dietary management education, guidance, and counseling, Feeding regime, Lifestyle education regarding diet, Nutrition / feeding management, Prescribed diet education, Special diet education, Intervention, Order not done: Medical or Other reason not done S moking/Tobacco Use Patient counseled on the dangers of tobacco use and urged to quit. 0 03/10/2025 * Follow Up: 2 Months (Reason: OV, Flush) * Images: * Sign off status: Completed true * Provider: Yifan Meier MD Date: 0 03/10/2025 Generated for Kenneth menjivar/Jorge/Christinaitting on: 1 11:07 AM EDT History and Physical Notes * HPI (History of Present Illness) Category Sub-Category Detail Notes COVID-19 Screening Questions Have you had any new onset fever, chills, cough, congestion, sore throat, shortness of breath, muscle aches?: No Examination Category Sub-Category Detail Notes General Examination GENERAL APPEARANCE: pleasant , well nourished, well developed, in no acute distress, calm and relaxed: underweight: elderly woman HEAD: atraumatic, normocep halic EYES: eomi, perrla, anicte constanza, conjugate EARS: normal NOSE: septum intact NECK/THYROID: no jugular venous di stention, no carotid bruit, thyroid normal HEART: no clicks, gallops, murmurs, or rubs, regular rhythm, S1, S2 normal, no s3, or vascular bruits LUNGS: clear to auscultatio n, Port-A-Cath in place underskin of upper chest wall above the breast in good condition left chest wall ABDOMEN: bowel sounds normal, no ascites, no organomegaly, no mass, Underweight, no mass palpable NEUROLOGIC: alert and oriented, cranial nerves 2-12 grossly intact, deep tendon reflexes 2+ symmetrical, motor strength normal upper and lower extremities, sensory exam intact SKIN: no suspicious lesion s, anicteric PERIPHERAL PULSES: normal BREASTS: Not examined MUSCULOSKELETAL: extremities unremark able, no clubbing, cyanosis or edema LYMPH NODES: no enlarged lymph no sherin,spleen normal RECTAL EXAM: not examined PSYCH: alert, oriented ORAL CAVITY: normal, unremarkable
--- OUTSIDE RECORDS SUMMARY | 2025-03-15 05:28 | XMS_ITS ---
Author Organization Gerber Meier III, MD Address [address] [place] [address] [place] [address] Care Team Providers Care Long Chain Beamer Name Role Phone Dr. Gerber Meier III Primary Care Provider [phone] REASON FOR VISIT Possible UTI Social History Sex Assigned At : Social History Observation Description Sex Assigned At Female Encounters Encounter Location Date Provider Diagnosis Gebrer Meier III, MD [address] [place] [address] [place] [address] 03/15/2025 Gerber Meier UTI (urinary tract infection) N39.0 Assessments Encounter Date Diagnosis (ICD Code) Assessment Notes Treatment Notes Treatment Clinical Notes 03/15/2025 UTI (urinary tract infection) (ICD-10 - N39.0) Plan Of Treatment Pending Test Test Name Order Date URINALYSIS (UA) 03/15/2025 Urine Culture 03/15/2025 Next Appt Details Provider Name:Gerber Meier , 05/05/2025 10:30:00 AM, [address] [place] [address] [place], [address], Progress Notes * Jessica MURRAY ADOB: 9 (84 yo F)Acc No.[id number]:03/15/2025 Patient: Toshia Jessica GUZMAN :1940 A ge:84 Y S ex:Female Address:[address] [place] [address] [place] [address] Subjective: * Chief Complaints: * P ossible UTI * Medical History: * Surgical History: * Hospitalization/Major Diagno stic Procedure: * Medications: Objective: * Vitals: * Physical Examination: Assessment: * Assessment: 1. U TI (urinary tract infection) - N39.0 Plan: * Treatment: * Procedure Codes: * true * Date: Generated for Kenneth menjivar/Jorge/Jose on: 11:07 AM EDT
--- OUTSIDE RECORDS SUMMARY | 2025-03-15 11:07 | XMS_ITS | Patient Health Record ---
Author Organization [facility] Address [address] [place] [address] Care Team Providers Care Post Hole Digger Name Role Phone Selam Edmond DO Primary Care Provider Santiago Sandoval Jr Unavailable Ghassan Taylor Unavailable Unavailable Allergies Allergen (clinical [...] Status W/U Status Risk Notes Problem Constipation (33525379) Constipation (564.00) Active confirmed Problem Family History of Cancer of Colon (Situation) (440809654) Family history of colon cancer (V16.0) Active confirmed Plan Of Treatment Future Test Test Name Order Date COLONOSCOPY 09/03/2012 Insurance Providers Payer Name Payer Address Payer Phone Subscriber Number Group Number Insured Name Patient Relationship to Insured Coverage Start Date Coverage End Date MEDICARE OF [place] [address] [place] [id number] [phone] [id number] ANTOLIN ALDANA Self - patient is the insured [employer] [address] [place] [address] [id number] ANTOLIN ALDANA Self - patient is the insured Medical (General) History Medical History History ICD Code colonoscopy 08/20/2007 Ovarian cancer stage 3 hypertension carotid artery disease Surgical History Surgery Date(Month/Year) hysterectomy appendectomy tonsillectomy
--- OUTSIDE RECORDS SUMMARY | 2025-03-15 11:08 | XMS_ITS | Patient Health Record ---
Author Organization Gerber Meier III, MD Address [address] [place] [address] [place] [address] Care Team Providers Care Thread Spinner Name Role Phone Dr. Gerber Meier III Primary Care Provider [phone] Allergies Allergen (clinical drug ingredient) Drug/Non Drug Allergy documented on EMR Reaction Allergy Type Onset Date Status sulfacetamide Sulfacetamide Unknown Drug Allergy Active Reason For Referral No Information Medications Medication SIG (Take, Route, Frequency, Duration) Notes Start Date End Date Status Nitrofurantoin Macrocrystal 50 MG TAKE 1 CAPSULE ONCE DAILY WITH FOOD OR MILK Orally Once a day Active Zolpidem Tartrate 10 MG TAKE 1 TABLET EV KEARA NIGHT AT BEDTIME Orally Once a day 03/07/2025 Active Ciprofloxacin HCl 250 MG 1 tablet Orally every 12 hrs 02/27/2025 Active Mirtazapine 30 MG 1 tablet before bedt tere every evening Orally Once a day Active cloNIDine HCl 0.3 MG 2 tablets Orally at bedtime 10/05/2023 Active traZODone HCl 100 MG 1 tablet at bedtime Orally Once a day 08/24/2023 Active Sertraline HCl 100 MG 1 tablet Orally On day 09/09/2023 Active Immunizations Vaccine Route Administration Date Status [...] Problem Status W/U Status Risk Notes Problem 7707857 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 Problem Back pain (609693972) Back pain (M54.9) Active confirmed Her acute low back pain has resolved and she was comfortable today. Problem 03819959 Hyperglycemia (R73.9) Active confirmed Low values will be obtained from the [facility]. They will be reviewed. Problem 029266526 Underweight (R63.6) Active confirmed Her weight is stable at 100 pounds with a body mass index of 18. This is likely normal for her at this time. We discussed diet and nutrition today. Problem 9845569 Primary insomnia (F51.01) Active confirmed This has begun to improve with her medications. Problem 816794197 Port-a-cath in place (Z95.828) Active confirmed The [...] week's if this is not done in [facility]. Problem 377835004 Ovarian cancer (C56.9) Active confirmed She was continued on the oral agent. Problem 68547693 Neurotoxicity (R29.90) Active confirmed She has had no additional neurotoxicity from the etoposide. It is mild at this time and slowly resolving. No treatment is necessary. 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 She will continue on her current medicatioons. Vital Signs Heart Rate 78 /min 03/10/2025 Temperature 97.9 degrees Fahrenheit 03/10/2025 Blood pressure diastolic 78 mm Hg 03/10/2025 Height 61 in 03/10/2025 Blood pressure systolic 137 mm Hg 03/10/2025 Weight 98 lbs 03/10/2025 BMI 18.51 kg/m2 03/10/2025 Encounters Encounter Location Date Provider Diagnosis Gerber Meier III, MD [address] [place] [address] [place] [address] 03/22/2024 Gerber Meier Ovarian cancer C56.9 ; Hyperglycemia R73.9 ; Former smoker Z87.891 ; Alopecia L65.9 ; Reactive depression F32.9 ; Underweight R63.6 ; Port-a-cath in place Z95.828 and Low back pain M54.5 Gerber Meier III, MD [address] [place] [address] [place] [address] 05/03/2024 Gerber Meier Ovarian cancer C56.9 ; Former smoker Z87.891 ; Back pain M54.9 and Port-a-cath in place Z95.828 Gerber Meier III, MD [address] [place] [address] [place] [address] 06/09/2024 Gerber Phamrne Ovarian cancer C56.9 ; Former smoker Z87.891 ; Back pain M54.9 ; Port-a-cath in place Z95.828 and Underweight R63.6 Gerber Meier III, MD [address] [place] [address] [place] [address] 07/21/2024 Gerber Meier Ovarian cancer C56.9 ; Former smoker Z87.891 ; Port-a-cath in place Z95.828 ; Primary insomnia F51.01 ; Back pain M54.9 ; Reactive depression F32.9 and Underweight R63.6 Gerber Meier III, MD [address] [place] [address] [place] [address] 09/01/2024 Gerber Meier Ovarian cancer C56.9 ; Former smoker Z87.891 ; Port-a-cath in place Z95.828 ; Reactive depression F32.9 ; Primary insomnia F51.01 and Back pain M54.9 Gerber Meier III, MD [address] [place] [address] [place] [address] 10/27/2024 Gerber Meier Ovarian cancer C56.9 ; Hyperglycemia R73.9 ; Former smoker Z87.891 ; Port-a-cath in place Z95.828 ; Back pain M54.9 ; Reactive depression F32.9 ; Underweight R63.6 and Primary insomnia F51.01 Gerber Meier III, MD [address] [place] [address] 12/23/2024 Gerber Meier Ovarian cancer C56.9 ; Former smoker Z87.891 ; Back pain M54.9 ; Port-a-cath in place Z95.828 ; Underweight R63.6 ; Reactive depression F32.9 and Primary insomnia F51.01 Gerber Meier III, MD [address] [place] [address] [place] [address] 03/10/2025 Gerber Johnsonne Ovarian cancer C56.9 ; Former smoker Z87.891 ; Port-a-cath in place Z95.828 ; Reactive depression F32.9 and Underweight R63.6 Gerber Meier III, MD [address] [place] [address] [place] [address] 04/11/2024 Gerber Meier III, MD [address] [place] [address] [place] [address] 04/26/2024 Gerber Johnsonne Ovarian cancer C56.9 Gerber Meier III, MD [address] [place] [address] [place] [address] 11/08/2024 Gerber Meier III, MD [address] [place] [address] [place] [address] 11/08/2024 Gerber Meier III, MD [address] [place] [address] [place] [address] 12/14/2024 Gerber Meier III, MD [address] [place] [address] [place] [address] 02/15/2025 Gerber Meier III, MD [address] [place] [address] [place] [address] 02/15/2025 Gerber Meier III, MD [address] [place] [address] [place] [address] 02/27/2025 Gerber Meier III, MD [address] [place] [address] [place] [address] 02/27/2025 Gerber Meier III, MD [address] [place] [address] [place] [address] 03/15/2025 Gerber Meier UTI (urinary tract infection) N39.0 Assessments Encounter Date Diagnosis (ICD Code) Assessment Notes Treat ment Notes Treatment Clinical Notes 03/22/2024 Hyperglycemia (ICD-10 - R73.9) Low values will be obtained from the [facility]. They will be reviewed. 03/22/2024 Ovarian [...] Her weight is stable at 101 pounds. 07/21/2024 Former smoker (ICD-10 - Z87.891) She has formulated a plan to prevent relapse in times of stress and illness. 07/21/2024 Ovarian cancer (ICD-10 - C56.9) She has been continued on the oral niraparib. There is no sign of progressive disease on today's examination.Her alopecia has resolved. Her weight is stable at 101 pounds. 09/01/2024 Former smoker (ICD-10 - Z87.891) She has formulated a plan to prevent relapse in times of stress and illness. 09/01/2024 Ovarian cancer (ICD-10 - C56.9) She has been continued on the oral niraparib. There is no sign of progressive disease on today's examination.Her alopecia has resolved. Her weight is stable at 101 pounds. 10/27/2024 Hyperglycemia (ICD-10 - R73.9) Low values will be obtained from the [facility]. They will be reviewed. 10/27/2024 Ovarian cancer (ICD-10 - C56.9) She has been continued on the oral niraparib. There is no sign of progressive disease on today's examination.Her alopecia has resolved. Her weight is stable at 101 pounds. 12/23/2024 Former smoker (ICD-10 - Z87.891) She has formulated a plan to prevent relapse in times of stress and illness. 12/23/2024 Ovarian cancer (ICD-10 - C56.9) She remains stable on oral therapy being treated by the [facility]. Her port was flushed today. 03/10/2025 Former smoker (ICD-10 - Z87.891) She has formulated a plan to prevent relapse in times of stress and illness. 03/10/2025 Ovarian cancer (ICD-10 - C56.9) She was continued on the oral agent. 04/26/2024 Ovarian cancer (ICD-10 - C56.9) She has resumed taking her oral medication.There is no sign of progressive disease on today's examination.Her alopecia has resolved. Her weight is stable at 109 pounds. 03/15/2025 UTI (urinary tract infection) (ICD-10 - N39.0) 03/22/2024 Former smoker (ICD-10 - Z87.891) She has formulated a plan to prevent relapse in times of stress and illness. 05/03/2024 Back pain (ICD-10 - M54.9) Her acute low back pain has resolved and she was comfortable today. 06/09/2024 Back pain (ICD-10 - M54.9) Her acute low back pain has resolved and she was comfortable today. 07/21/[address] in [address] (ICD-10 - Z95.828) The [...] week's if this is not done in [facility] oncology. 09/01/[address]24 [address] (ICD-10 - Z95.828) The [...] week's if this is not done in [facility] oncology. 10/27/2024 Former smoker (ICD-10 - Z87.891) She has formulated a plan to prevent relapse in times of stress and illness. 12/23/2024 Back pain (ICD-10 - M54.9) Her acute low back pain has resolved and she was comfortable today. 03/10/2025 Port-a-c[address] in place (ICD-10 - Z95.828) [...] week's if this is not done in [facility] onc[facility]. 03/22/2024 Alopecia (ICD-10 - L65.9) She continues [...] week's if this is not done in [facility] onc[facility]. 06/09/2024 Port-a-cath in place (ICD-10 - [...] week's if this is not done in [facility] onc[facility]. 07/21/2024 Primary insomnia (ICD-10 - F51.01) This has begun to improve with her medications. 09/01/2024 Reactive depression (ICD-10 - F32.9) I believe she is beginning to respond. She will continue on her current medicatioons. 10/27/[address] (ICD-10 - Z95.828) The [...] week's if this is not done in [facility] oncology. 12/23/20[address] in [address] (ICD-10 - Z95.828) The [...] week's if this is not done in [facility] onc[facility]. 03/10/2025 Reactive depression (ICD-10 - F32.9) I believe she is beginning to respond. She will continue on her current medicatioons. 03/22/2024 Reactive depression (ICD-10 - F32.9) I believe she is beginning to respond. She will continue on her current medicatioons. 06/09/2024 Underweight (ICD-10 - R63.6) Her body mass index is now 19. We have discussed diet and nutrition at length. 07/21/2024 Back pain (ICD-10 - M54.9) Her acute low back pain has resolved and she was comfortable today. 09/01/2024 Primary insomnia (ICD-10 - F51.01) This has begun to improve with her medications. 10/27/2024 Back pain (ICD-10 - M54.9) Her acute low back pain has resolved and she was comfortable today. 12/23/2024 Underweight (ICD-10 - R63.6) Her weight is stable at 100 pounds with a body mass index of 18. This is likely normal for her at this time. We discussed diet and nutrition today. 03/10/2025 Underweight (ICD-10 - R63.6) Her weight is stable at 100 pounds with a body mass index of 18. This is likely normal for her at this time. We discussed diet and nutrition today. 03/22/2024 Underweight (ICD-10 - R63.6) Her body mass index is now 18. We have discussed diet and nutrition at length. 07/21/2024 Reactive depression (ICD-10 - F32.9) I believe she is beginning to respond. She will continue on her current medicatioons. 09/01/2024 Back pain (ICD-10 - M54.9) Her acute low back pain has resolved and she was comfortable today. 10/27/2024 Reactive depression (ICD-10 - F32.9) I believe she is beginning to respond. She will continue on her current medicatioons. 12/23/2024 Reactive depression (ICD-10 - F32.9) I believe she is beginning to respond. She will continue on her current medicatioons. 03/22/[address]-a-[address] in place (ICD-10 - Z95.828) [...] week's if this is not done in [facility] oncology. 07/21/2024 Underweight (ICD-10 - R63.6) 10/27/2024 Underweight (ICD-10 - R63.6) Her weight is stable at 100 pounds with a body mass index of 18. This is likely normal for her at this time. We discussed diet and nutrition today. 12/23/2024 Primary insomnia (ICD-10 - F51.01) This has begun to improve with her medications. 03/22/2024 Low back pain (ICD-10 - M54.5) This is likely due to the urinary tract infection. If it doesn't resolve in another cause will be sought. 10/27/2024 Primary insomnia (ICD-10 - F51.01) This has begun to improve with her medications. Plan Of Treatment Pending Test Test Name Order Date PROFILE, RANDOM (COMPREHENSIVE METABOLIC ) 05/20/2022 PROFILE, RANDOM (COMPREHENSIVE METABOLIC ) 10/09/2021 PROFILE, RANDOM (COMPREHENSIVE METABOLIC ) 04/09/2022 PROFILE, RANDOM (COMPREHENSIVE METABOLIC ) 09/11/2021 PROFILE, RANDOM (COMPREHENSIVE METABOLIC ) 07/01/2022 PROFILE, RANDOM (COMPREHENSIVE METABOLIC ) 01/02/2022 PROFILE, RANDOM (COMPREHENSIVE METABOLIC ) 01/21/2022 CBC w DIFF 01/21/2022 CBC w DIFF 05/20/2022 CBC w DIFF 10/09/2021 CBC w DIFF 04/09/2022 CBC w DIFF 09/11/2021 CBC w DIFF 07/01/2022 URINALYSIS (UA) 03/15/2025 CA 125 01/21/2022 CA 125 05/20/2022 CA 125 10/09/2021 CA 125 04/09/2022 CA 125 09/11/2021 CA 125 07/01/2022 US RENAL BILATERAL 07/04/2019 US URINARY BLADDER 07/04/2019 PORTACATH INSERTION 11/24/2018 Urine Culture 03/15/2025 Next Appt Details Provider Name:Gerber Meier , 05/05/2025 10:30:00 AM, [address] [place] [address] [address], [place], [address], Insurance Providers Payer Name Payer Address Payer Phone Subscriber Number Group Number Insured Name Patient Relationship to Insured Coverage Start Date Coverage End Date MEDICARE NGS [address] [place] [phone] [id number] Jessica Murray Self - patient is the insured [facility] [address] [place], [place] [id number] Jessica Murray Self - patient is the insured Medical (General) History Medical History History ICD Code ovarian cancer stage III 2001, 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
[2025-03-15 11:37] LABS: Appearance Urine Cloudy; Glucose Urine UA Negative (Negative); PH 6.5 (5.0-9.0); Specific Gravity - Urine 1.015 (1.005-1.025); UMIC TRIGGER UA YES
== END 2025-03-15 09:58 | disposition home or self-care (01) ==
LOC: HO.LAB 09:57
PROVIDERS: Visit Provider Internal Medicine Medical Oncology
DX: N39.0 Urinary tract infection, site not specified (principal)
CPT/HCPCS: 81001; 87086

== ENCOUNTER 2025-03-20 14:38 | Outpatient (REF) | payer MEDICARE, SELFPAY ==
--- OUTSIDE RECORDS SUMMARY | 2025-03-10 05:30 | XMS_ITS ---
Author Organization Gerber Meier III, MD Address [address] [place] [address] [place] [address] Care Team Providers Care Track Laying Supervisor Name Role Phone Dr. Gerber Meier III Primary Care Provider Allergies Allergen (clinical drug [...] Provider Diagnosis Gerber Meier III, MD [address] [place] [address] DR HERMAN, [place]ONNE [address] 03/10/2025 Gerber Meier Ovarian cancer C56.9 ; [...] week's if this is not done in [facility]. 03/10/2025 Reactive depression (ICD-10 - F32.9) [...] Provider Name:Gerber Meier , 05/05/2025 10:30:00 AM, [address] [place] [address], [place] [address], [place], [address], Progress Notes * Jessica MURRAY ADOB: (84 yo F)Acc No.[id number]:03/10/2025 Patient: Jessica ALBRIGHT Provider: Yifan Meier MD :1940 A ge:84 Y S ex:Female Date:03/10/2025 Address:[address] [place] [address] [address], [facility] Subjective: * Chief Complaints: * A dvanced ovarian dupuqrBmdopkzzudpYqvc-S-Ykgt flushDepression * HPI: C OVID-19 Screening: She [...] Comprehensive blood work is being done by [facility] at [facility]. Questions H ave you had any new [...] x-cigarette smoker S he was born in [place], [place]. 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 * Medications: T akingNitrofurantoin Macrocrystal 50 MG [...] week's if this is not done in [facility] onc[facility]. 4 . R eactive depression - [...] * Procedure Codes: 9 6522 REFILL/MAINT PUMP/RESVR [id number] INJECTION HEPARIN SODIUM 10 [id number] SALINE SOLUTION * Preventive Medicine: Counseling: C [...] 03/10/2025 Generated for Kenneth menjivar/Jorge/Christinaitting on: 1 05:04 PM EDT History and Physical Notes * HPI [...]
--- OUTSIDE RECORDS SUMMARY | 2025-03-15 05:28 | XMS_ITS ---
Author Organization Gerber Meier III, MD Address [address] [place] [address] [place] [address] Care Team Providers Care Radio Electrician Name Role Phone Dr. Gerber Meier III Primary Care Provider Results Component Value Reference Range Notes Urine Culture (Not yet revie wed by provider) Interpretation: Performing Lab:[facility], [address] [place] [phone] Notes/Report: Urine Culture Report Result Urine Culture < 10,000 cfu/ml REASON FOR VISIT Possible UTI Social History Sex Assigned At : Social History Observation Description Sex Assigned At Female Encounters Encounter Location Date Provider Diagnosis Gerber Meier III, MD [address] [place] [address] [place] [address] 03/15/2025 Gerber Meier UTI (urinary tract infection) N39.0 Assessments Encounter Date Diagnosis (ICD Code) Assessment Notes Treatment Notes Treatment Clinical Notes 03/15/2025 UTI (urinary tract infection) (ICD-10 - N39.0) Plan Of Treatment Pending Test Test Name Order Date Urine Culture 03/15/2025 Next Appt Details Provider Name:Gerber Meier , 05/05/2025 10:30:00 AM, [address] [place] [address] [place] [facility], [address], Progress Notes * Jessica MURRAY ADOB: 9 (84 yo F)Acc No.[id number]:03/15/2025 Patient: Toshia Jessica GUZMAN :1940 A ge:84 Y S ex:Female Address:[address] [place] [address] , [facility] [address], [place] [address] Subjective: * Chief Complaints: * P ossible UTI * Medical History: * Surgical History: * Hospitalization/Major Diagno stic Procedure: * Medications: Objective: * Vitals: * Physical Examination: Assessment: * Assessment: 1. U TI (urinary tract infection) - N39.0 Plan: * Treatment: * Procedure Codes: * true * Date: Generated for Kenneth menjivar/Jorge/Mathewsmitting on: 05:04 PM EDT
--- OUTSIDE RECORDS SUMMARY | 2025-03-15 10:52 | XMS_ITS ---
Author Organization Gerber Meier III, MD Address [address] [place] [address] [address] [facility] [place] [id number] Care Team Providers Care Linux Programmer Name Role Phone Dr. Gerber Meier III Primary Care Provider Medications Medication SIG (Take, Route, Frequency, Duration) Notes Start Date End Date Status Amoxicillin-Pot Clavulanate 875-125 MG 1 tablet Orally every 12 hrs for 7 days 03/15/2025 03/29/2025 Active Social History Sex Assigned At : Social History Observation Description Sex Assigned At Female Encounters Encounter Location Date Provider Diagnosis Gerber Meier III, MD [address] [place] [address] [place] [address] 03/15/2025 Gerber Meier Plan Of Treatment Medication Medication Name Sig Start Date Stop Date Notes Amoxicillin-Pot Clavulanate 875-125 MG 1 tablet Orally every 12 hrs for 7 days 03/15/2025 03/29/2025 Next Appt Details Provider Name:Gerber Meier , 05/05/2025 10:30:00 AM, [address] [place] [address] [place], [address], Progress Notes * Jessica MURRAY ADOB: 9 (84 yo F)Acc No.[id number]:03/15/2025 Patient: Toshia Jessica GUZMAN Emmett :1940 A ge:84 Y S ex:Female Address:[address] [place] [address] , [address], [place] [address] * Refills Start Amoxicillin-Pot Clavulanate Tablet, 875-125 MG, Orally, 14 Tablet, 1 tablet, every 12 hrs, 7 days, Refills=1 * true * Date: Generated for Kenneth menjivar/Jorge/Jose on: 05:04 PM EDT
--- OUTSIDE RECORDS SUMMARY | 2025-03-17 09:14 | XMS_ITS ---
Author Organization Gerber Meier III, MD Address [address] [place] [address] [place] [address] Care Team Providers Care Slip Feeder Name Role Phone Dr. Gerber Meier III Primary Care Provider REASON FOR VISIT told patient to call Social History Sex Assigned At : Social History Observation Description Sex Assigned At Female Encounters Encounter Location Date Provider Diagnosis Gerber Meier III, MD [address] [place] [address] [place] [address] 03/17/2025 Gerber Meier Plan Of Treatment Next Appt Details Provider Name:Gerber Meier , 05/05/2025 10:30:00 AM, [address] [place] [address] [place], [address], Progress Notes * Jessica MURRAY ADOB: (84 yo F)Acc No.[id number]:03/17/2025 Patient: Jessica ALBRIGHT :1940 A ge:84 Y S ex:Female Address:[address] [place] [address] [address], [place] [address] * true * Date: Generated for Kenneth menjivar/Jorge/eTransmitting on: 05:05 PM EDT
--- OUTSIDE RECORDS SUMMARY | 2025-03-20 09:39 | XMS_ITS ---
Author Organization Gerber Meier III, MD Address [address] [place] [address] [place] [address] Care Team Providers Care Emergency Vehicle Operations Instructor Name Role Phone Dr. Gerber Meier III Primary Care Provider REASON FOR VISIT told patient to call Social History Sex Assigned At : Social History Observation Description Sex Assigned At Female Encounters Encounter Location Date Provider Diagnosis Gerber Meier III, MD [address] [place] [address] [place] [address] 03/20/2025 Gerber Meier UTI symptoms R39.9 Assessments Encounter Date Diagnosis (ICD Code) Assessment Notes Treatment Notes Treatment Clinical Notes 03/20/2025 UTI symptoms (ICD-10 - R39.9) Plan Of Treatment Pending Test Test Name Order Date URINALYSIS (UA) 03/20/2025 Urine Culture 03/20/2025 Next Appt Details Provider Name:Gerber Meier , 05/05/2025 10:30:00 AM, [address] [place] [address] [place], [address], Progress Notes * Jessica MURRAY ADOB: (84 yo F)Acc No.[id number]:03/20/2025 Patient: Jessica ALBRIGHT :1940 A ge:84 Y S ex:Female Address:[address] [place] [address] [address] [place] [address] Subjective: * Chief Complaints: * Toshia segovia told patient to call * Medical History: * Surgical History: * Hospitalization/Major Diagno stic Procedure: * Medications: Objective: * Vitals: * Physical Examination: Assessment: * Assessment: 1. U TI symptoms - R39.9 Plan: * Treatment: * Procedure Codes: * true * Date: Generated for Kenneth Bedolla/Jose on: 05:05 PM EDT
[2025-03-20 15:44] LABS: Appearance Urine Cloudy; Glucose Urine UA Negative (Negative); PH 6.0 (5.0-9.0); Specific Gravity - Urine 1.015 (1.005-1.025); UMIC TRIGGER UACC YES
[2025-03-20 15:54] LABS: UACC Culture Trigger YES
--- OUTSIDE RECORDS SUMMARY | 2025-03-20 17:04 | XMS_ITS | Patient Health Record ---
Author Organization [facility] Address [address] [place] [address] Care Team Providers Care Fur Sewer Name Role Phone Sealm Edmond DO Primary Care Provider Santiago Sandoval [...] Status W/U Status Risk Notes Problem Constipation (92872853) Constipation (564.00) Active confirmed Problem Family History of Cancer of Colon (Situation) (215265676) Family history of colon cancer (V16.0) Active confirmed Plan Of Treatment Future Test Test Name Order Date COLONOSCOPY 09/03/2012 Insurance Providers Payer Name Payer Address Payer Phone Subscriber Number Group Number Insured Name Patient Relationship to Insured Coverage Start Date Coverage End Date MEDICARE OF [place] [address] [place] [id number] [phone] [id number] ANTOLIN ALDANA Self - patient is the insured [employer] CLAIM[employer] [address] [place] [address] [id number] ANTOLIN ALDANA Self - patient is the insured Medical (General) History Medical History History ICD Code colonoscopy 08/20/2007 Ovarian cancer stage 3 hypertension carotid artery disease Surgical History Surgery Date(Month/Year) hysterectomy appendectomy tonsillectomy
--- OUTSIDE RECORDS SUMMARY | 2025-03-20 17:05 | XMS_ITS | Patient Health Record ---
Author Organization Gerber Meier III, MD Address [address] [place] [address] [place] [address] Care Team Providers Care Swage Tender Name Role Phone Dr. Gerber Meier III Primary Care Provider [phone] Allergies Allergen (clinical drug ingredient) Drug/Non Drug Allergy documented on EMR Reaction Allergy Type Onset Date Status sulfacetamide Sulfacetamide Unknown Drug Allergy Active Results Component Value Reference Range Notes Urine Culture (Not yet revie wed by provider) Interpretation: Performing Lab:[address] [id number] Notes/Report: Urine Culture Report Result Urine Culture < 10,000 cfu/ml Urinalysis and Microscopic ( Not yet reviewed by provider) Interpretation: Performing Lab:[address] [address] Notes/Report: Color Urine Yellow Appearance Urine Cloudy PH 6.5 5.0-9.0 Glucose Urine UA Negative Negative mg/dL Urine Blood Negative Negative Specific [place] - Urine 1.015 1.005-1.025 Urine Protein Trace Neg-Trace mg/dL Urine Ketones Negative Negative mg/dL Nitrite Urine Negative Negative Leukocyte Esterase Urine Large (3+) Negative RBC Urine 0-2 0-2 /HPF WBC Urine >50 0-5 /HPF Squamous Epithelial Cell Urine 6-10 0-2 /HPF Calcium Oxalate Crystals Urine Present Bacteria Urine None Seen None Seen Hyaline Casts Urine 0-2 0-2 /LPF Yeast Urine Present UA CC w/rflx Micro + Cult (N ot yet reviewed by provider) Interpretation: Performing Lab:[facility], [address] [place] [id number] Notes/Report: Urine, Clean Catch Color Urine Dark Yellow Appearance Urine Cloudy PH 6.0 5.0-9.0 Glucose Urine UA Negative Negative mg/dL Urine Blood Negative Negative Specific [place] - Urine 1.015 1.005-1.025 Urine Protein Trace Neg-Trace mg/dL Urine Ketones Trace Negative mg/dL Nitrite Urine Negative Negative Leukocyte Esterase Urine Moderate (2+) Negative UA ClnCatch+Micro w/rflx Cul t (Not yet reviewed by provider) Interpretation: Performing Lab:[facility], [address] [place] [id number] Notes/Report: Urine, Clean Catch Color Urine Dark Yellow Appearance Urine Cloudy PH 6.0 5.0-9.0 Glucose Urine UA Negative Negative mg/dL Urine Blood Negative Negative Specific [place] - Urine 1.015 1.005-1.025 Urine Protein Trace Neg-Trace mg/dL Urine Ketones Trace Negative mg/dL Nitrite Urine Negative Negative Leukocyte Esterase Urine Moderate (2+) Negative RBC Urine 0-2 0-2 /HPF WBC Urine >50 0-5 /HPF Squamous Epithelial Cell Urine 6-10 0-2 /HPF Bacteria Urine None Seen None Seen Hyaline Casts Urine 3-5 0-2 /LPF Yeast Urine Present Reason For Referral No Information Medications Medication [...] tablet Orally every 12 hrs 02/27/2025 Active Amoxicillin-Pot Clavulanate 875-125 MG 1 tablet Orally every 12 hrs for 7 days 03/15/2025 03/29/2025 Active Mirtazapine 30 MG 1 tablet before [...] Problem Status W/U Status Risk Notes Problem 1863040 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 Problem Back pain (779024894) Back pain (M54.9) Active confirmed Her acute low back pain has resolved and she was comfortable today. Problem 08419689 Hyperglycemia (R73.9) Active confirmed Low values will be obtained from the [facility]. They will be reviewed. Problem 129556889 Underweight (R63.6) Active confirmed Her weight is stable at 100 pounds with a body mass index of 18. This is likely normal for her at this time. We discussed diet and nutrition today. Problem 2646571 Primary insomnia (F51.01) Active confirmed This has begun to improve with her medications. Problem 824618727 Port-a-cath in place (Z95.828) Active confirmed The [...] week's if this is not done in [facility]. Problem 455082589 Ovarian cancer (C56.9) Active confirmed She was continued on the oral agent. Problem 53256430 Neurotoxicity (R29.90) Active confirmed She has had no additional neurotoxicity from the etoposide. It is mild at this time and slowly resolving. No treatment is necessary. 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) Active confirmed I believe [...] Date Provider Diagnosis Gerber Meier III, MD [address] [place] [address] [place] [address] 03/22/2024 Gerber Meier Ovarian cancer C56.9 ; Hyperglycemia R73.9 ; Former smoker Z87.891 ; Alopecia L65.9 ; Reactive depression F32.9 ; Underweight R63.6 ; Port-a-cath in place Z95.828 and Low back pain M54.5 Gerber Meier III, MD [address] [place] [address] [place] [address] 05/03/2024 Gerber Meier Ovarian cancer C56.9 ; Former smoker Z87.891 ; Back pain M54.9 and Port-a-cath in place Z95.828 Gerber Meier III, MD [address] [place] [address] [place] [address] 06/09/2024 Gerber Meier Ovarian cancer C56.9 ; Former smoker Z87.891 ; Back pain M54.9 ; Port-a-cath in place Z95.828 and Underweight R63.6 Gerber Meier III, MD [address] [place] [address] [place] [address] 07/21/2024 Gerber Meier Ovarian cancer C56.9 ; Former smoker Z87.891 ; Port-a-cath in place Z95.828 ; Primary insomnia F51.01 ; Back pain M54.9 ; Reactive depression F32.9 and Underweight R63.6 Gerber Meier III, MD [address] [place] [address] [place] [address] 09/01/2024 Gerber Meier Ovarian cancer C56.9 ; Former smoker Z87.891 ; Port-a-cath in place Z95.828 ; Reactive depression F32.9 ; Primary insomnia F51.01 and Back pain M54.9 Gerber Meier III, MD [address] [place] [address] [place] [address] 10/27/2024 Gerber Meier Ovarian cancer C56.9 ; Hyperglycemia R73.9 ; Former smoker Z87.891 ; Port-a-cath in place Z95.828 ; Back pain M54.9 ; Reactive depression F32.9 ; Underweight R63.6 and Primary insomnia F51.01 Gerber Meier III, MD [address] [place] [address] [place] [address] 12/23/2024 Gerber Meier Ovarian cancer C56.9 ; Former smoker Z87.891 ; Back pain M54.9 ; Port-a-cath in place Z95.828 ; Underweight R63.6 ; Reactive depression F32.9 and Primary insomnia F51.01 Gerber Meier III, MD [address] [place] [address] [place] [address] 03/10/2025 Gerber Meier Ovarian cancer C56.9 ; Former smoker Z87.891 ; Port-a-cath in place Z95.828 ; Reactive depression F32.9 and Underweight R63.6 Gerber Meier III, MD [address] [place] [address] [place] [address] 04/11/2024 Gerber Meier III, MD [address] [place] [address] [place] [address] 04/26/2024 Gerber Johnsonne Ovarian cancer C56.9 Gerber Meier III, MD [address] [place] [address] [place] [address] 11/08/2024 Gerber Meier III, MD [address] [place] [address] [place] [address] 11/08/2024 Gerber Meier III, MD [address] [place] [address] [place] [address] 12/14/2024 Gerber Meier III, MD [address] [place] [address] [place] [address] 02/15/2025 Gerber Meier III, MD [address] [place] [address] [place] [address] 02/15/2025 Gerber Meier III, MD [address] [place] [address] [place] [address] 02/27/2025 Gerber Meier III, MD [address] [place] [address] [place] [address] 02/27/2025 Gerber Meier III, MD [address] [place] [address] [place] [address] 03/15/2025 Gerber Meier UTI (urinary tract infection) N39.0 Gerber Meier III, MD [address] [place] [address] [place] [address] 03/15/2025 Gerber Meier III, MD [address] [place] [address] [place] [address] 03/17/2025 Gerber Meier III, MD [address] [place] [address] [place] [address] 03/20/2025 Gerber Meier UTI symptoms R39.9 Assessments Encounter Date Diagnosis (ICD Code) Assessment Notes Treat ment Notes Treatment Clinical Notes 03/22/2024 Hyperglycemia (ICD-10 - R73.9) Low values will be obtained from the [facility]. They will be reviewed. 03/22/2024 Ovarian [...] Low values will be obtained from the [facility]. They will be reviewed. 10/27/2024 Ovarian [...] on oral therapy being treated by the [facility]. Her port was flushed today. 03/10/2025 [...] UTI (urinary tract infection) (ICD-10 - N39.0) 03/20/2025 UTI symptoms (ICD-10 - R39.9) 03/22/2024 Former smoker (ICD-10 - Z87.891) She [...] week's if this is not done in [facility]. 09/01/2024 Port-a-cath in place (ICD-10 - [...] week's if this is not done in [facility]. 10/27/2024 Former smoker (ICD-10 - Z87.891) [...] week's if this is not done in [facility]. 03/22/2024 Alopecia (ICD-10 - L65.9) She [...] week's if this is not done in [facility]. 06/09/2024 Port-a-cath in place (ICD-10 - [...] week's if this is not done in [facility]. 07/21/2024 Primary insomnia (ICD-10 - F51.01) [...] week's if this is not done in [facility]. 12/23/2024 Port-a-cath in place (ICD-10 - [...] week's if this is not done in [facility]. 03/10/2025 Reactive depression (ICD-10 - F32.9) [...] week's if this is not done in [facility]. 07/21/2024 Underweight (ICD-10 - R63.6) 10/27/2024 [...] 09/11/2021 CBC w DIFF 07/01/2022 URINALYSIS (UA) 03/20/2025 CA 125 01/21/2022 CA 125 05/20/2022 CA 125 10/09/2021 CA 125 04/09/2022 CA 125 09/11/2021 CA 125 07/01/2022 US RENAL BILATERAL 07/04/2019 US URINARY BLADDER 07/04/2019 PORTACATH INSERTION 11/24/2018 Urinalysis and Microscopic 03/15/2025 Urine Culture 03/15/2025 Urine Culture 03/20/2025 UA CC w/rflx Micro + Cult 03/20/2025 UA ClnCatch+Micro w/rflx Cult 03/20/2025 Next Appt Details Provider Name:Gerber Escalante Renea , 05/05/2025 10:30:00 AM, [address] [place] [address] , [address], [place], [address], Insurance Providers Payer Name Payer Address Payer Phone Subscriber Number Group Number Insured Name Patient Relationship to Insured Coverage Start Date Coverage End Date MEDICARE NGS [address] [place] [address] [id number] Jessica Murray Self - patient is the insured [facility] [address] [place], [place] [id number] Jessica Murrya Self - patient is the insured Medical [...]
== END 2025-03-20 14:39 | disposition home or self-care (01) ==
LOC: HO.LAB 14:38
PROVIDERS: PCP Internal Medicine Medical Oncology; Visit Provider Internal Medicine Medical Oncology
DX: R39.9 Unspecified symptoms and signs involving the genitourinary system (principal)
CPT/HCPCS: 81001; 87086